=== PATIENT | male | born 1945 | race Caucasian/White ===

== ENCOUNTER → 2016-12-13 | Outpatient (CLI) | payer BC ==
[~2016-12-13] MED LIST: ASCA500 PO; ASPEC81 PO; ASPI81TA28 PO; ATEN-173 PO; ATOR-24 PO; CINN500T PO; CLOP1TAB15 PO; CLR10 PO; DOCU100C31 PO; ESCI10TA17 PO; GARL1CAP6 PO; GLUC1TAB94 PO; IMDSR30 PO; MULT-506 PO; NITR0.4S UT; NXM/40 PO; OMEG10007 PO; SUCR1TAB29 PO; TPRSR25 PO
[2016-12-13 09:35] LABS: BASO % 0.7 %; BASO ABS # 0.04 K/uL (0-0.2); COMPLETE YES; EOS % 8.4 %; HEMATOCRIT 48.4 % (42-52); LYMPH % 26.2 %; MEAN CELL VOLUME 88.3 fL (80-100); MEAN CORPUSCULAR HEMOGLOBIN 28.5 pg (25-34); MEAN CORPUSCULAR HGB CONC 32.2 g/dl (32-36); MEAN PLATELET VOLUME 8.8 fL (7.4-10.4); MONO % 7.5 %; NEUT % 57.2 %; PLATELET COUNT 205 K/uL (130-400); RED BLOOD COUNT 5.48 M/uL (4.7-6.1)
[2016-12-13 09:50] LABS: ESTIMATED AVERAGE GLUCOSE 131 mg/dl; HA1C FLAG Normal (Normal)
[2016-12-13 09:55] LABS: ALT/SGPT 28 U/L (12-78); AST/SGOT 19 U/L (15-37); BLOOD UREA NITROGEN 16 mg/dl (7-18); BUN/CREATININE RATIO 14.8 (10-20); CARBON DIOXIDE 28 mmol/L (21-32); CHLORIDE 107 mmol/L (98-107); CHOLESTEROL 128 mg/dl (0-200); GLUCOSE 114 mg/dl (70-99); POTASSIUM 4.3 mmol/L (3.5-5.1); SODIUM 143 mmol/L (136-145); TRIGLYCERIDES 71 mg/dl (0-150); VERY LOW DENSITY LIPOPROT CALC 14 mg/dl
[2016-12-13 09:57] LABS: CALCIUM 9.1 mg/dl (8.5-10.1)
[2016-12-13 09:59] LABS: HDL CHOLESTEROL 43 mg/dl; LDL CHOLESTEROL CALCULATED 71 mg/dl
== END | disposition home or self-care (01) ==
LOC: C.LAB1850 08:11
PROVIDERS: ATTEND Internal Medicine
DX: Z11.59 Encounter for screening for other viral diseases (principal); K22.4 Dyskinesia of esophagus; E11.9 Type 2 diabetes mellitus without complications; E78.5 Hyperlipidemia, unspecified; N40.0 Benign prostatic hyperplasia without lower urinary tract symptoms; I10 Essential (primary) hypertension

== ENCOUNTER → 2016-12-19 | Day surgery (SDC) | payer BC ==
[2016-12-17 15:08] VITALS: BMI 29.0
[~2016-12-19] VITALS: Ht 175.3 cm; Wt 90.9 kg
[~2016-12-19] MED LIST changes: -ATEN-173 PO; +SODIUM CHLORIDE 0.9% 500ML 500 ML IV ONE
[2016-12-19 11:29] VITALS: Ht 175.3 cm; Wt 90.9 kg
[2016-12-19 11:49] VITALS: TEMP 36.4
--- NOTE | 2016-12-19 11:50 | Endo History and Physical ---
History & Physical Date of Service: Dec 19, 2016. Chief Complaint: Dysphagia Referring Physician: Dr. Maguire History of Present Illness 71 yo CM who presents for EGD secondary to dysphagia. Past Medical History Arthritis, Reflux, High Cholesterol, Sleep Apnea, CABG, Heart Disease, Hypertension, CVA/TIA Past Surgical History Hx Cardiac Surgery: Yes (CABG X3 2011) Hx Internal Defibrillator: No Hx Pacemaker: No Hx Abdominal Surgery: No Hx of Implantable Prosthesis: No Hx Post-Op Nausea and Vomiting: No Hx Cancer Surgery: No Hx Thoracic Surgery: No Hx Orthopedic: No Hx Urinary Tract Surgery: No Family History None Social History Smoking Status: Never Smoker Hx Substance Use: No Hx Alcohol Use: Yes (OCCASIONAL) Allergies Coded Allergies: Iodinated Contrast Media (Verified Allergy, Unknown, "FEELING FUNNY", 12/19) Current Medications Reported Home Medications Medications Dose Route/Sig Max Daily Dose Days Date Category Docusate Sodium 100 Mg Cap 1 Cap PO DAILY PRN 30 12/19/16 Reported Vitamin C (Ascorbic Acid) 500 Mg Tab 1 Tab PO QAM 01/26/16 Reported Garlic 10 Mg Cap 1 Tab PO QAM 01/26/16 Reported Move Free Joint Health Ad (Vlzpilnylzh-Muaqrvojvie-Yfukwy) 1 Tab Tab 1 Tab PO QAM 01/26/16 Reported Nitrostat (Nitroglycerin) 0.4 Mg Sub 0.4 Mg UT PRN 12/22/14 Reported Cinnamon 500 Mg Tab 1 Cap PO QAM 12/22/14 Reported Lipitor (Atorvastatin Calcium) 40 Mg Tab 40 Mg PO QPM 12/22/14 Reported Plavix (Clopidogrel Bisulfate) 75 Mg Tab 75 Mg PO Q2D 07/27/09 Reported Ecotrin Or Generic * (Aspirin) 81 Mg Ectab 81 Mg PO QPM 08/12/08 Reported Lexapro (Escitalopram Oxalate) 10 Mg Tab 10 Mg PO QAM 08/12/08 Reported Nexium (Esomeprazole Magnesium) 40 Mg Capcr 40 Mg PO QAM 08/12/08 Reported Claritin (Loratadine) 10 Mg Tab 10 Mg PO QAM 08/12/08 Reported [place]-3 (Fish Oil) 1 Ea Cap 1 Cap PO QAM 08/12/08 Reported Multivitamin (Multivitamins) Tab 1 Tab PO QAM 08/12/08 Reported Vital Signs Weight (Kilograms): 90.91 Height (Feet): 5 Height (Inches): 9 Physical Exam General Appearance: WD/WN, no apparent distress Respiratory/Chest: Auscultation: breath sounds normal Cardiovascular: Heart Auscultation: RRR Abdomen: Bowel Sounds: normal Inspection & Palpation: soft, non-distended, no tenderness, guarding & rebound Assessment and Plan Assessment: 71 yo CM who presents for EGD secondary to dysphagia. Plan: Proceed with EGD
--- NOTE | 2016-12-19 12:30 | GI REPORT ---
Procedure Date: 12/19/2016 12:11 PM Procedure: Upper GI endoscopy Indications: Dysphagia Medicines: Monitored Anesthesia Care Complications: No immediate complications. Estimated Blood Loss: Estimated blood loss: none. Procedure: Pre-Anesthesia Assessment: - Prior to the procedure, a History and Physical was performed, and patient medications and allergies were reviewed. The patient's tolerance of previous anesthesia was also reviewed. The risks and benefits of the procedure and the sedation options and risks were discussed with the patient. All questions were answered, and informed consent was obtained. Prior Anticoagulants: The patient last took aspirin 2 days and Plavix (clopidogrel) 3 days prior to the procedure. ASA Grade Assessment: III - A patient with severe systemic disease. After reviewing the risks and benefits, the patient was deemed in satisfactory condition to undergo the procedure. After obtaining informed consent, the endoscope was passed under direct vision. Throughout the procedure, the patient's blood pressure, pulse, and oxygen saturations were monitored continuously. The scope was introduced through the mouth, and advanced to the second part of duodenum. The upper GI endoscopy was accomplished without difficulty. The patient tolerated the procedure well. Findings: One cratered esophageal ulcer with no bleeding and no stigmata of recent bleeding was found. The lesion was 5 mm in largest dimension. Localized mild inflammation characterized by erythema was found in the gastric antrum. Biopsies were taken with a cold forceps for histology. The examined duodenum was normal. Impression: - Non-bleeding esophageal ulcer. - Gastritis. Biopsied. - Normal examined duodenum. Recommendation: - Resume previous diet. - Continue present medications. - Await pathology results. - Use sucralfate tablets 1 gram PO QID for 10 days. - Return to primary care physician as previously scheduled. Carlitos Huber DO 12/19/2016 12:29:48 PM This report has been signed electronically. Note Initiated On: 12/19/2016 12:11 PM I attest to the content of the Intraoperative Record and orders documented therein, exceptions below
[2016-12-19 13:02] VITALS: BP 132/82; PULSE 61; O2SAT 97
--- NOTE | 2016-12-19 13:10 | Discharge Instructions ---
Endoscopy Patient Instructions Date / Procedure(s) Performed Dec 19, 2016. EGD Allergy Information Coded Allergies: Iodinated Contrast Media (Verified Allergy, Unknown, "FEELING FUNNY", 12/19) Discharge Date / Findings Dec 19, 2016. Esophageal ulcer Gastritis s/p biopsies Medication Instructions Stopped Medication(s): STOP PLAVIX 1) Start Carafate 1g by mouth four times daily for 10 days 2) OK to restart all medications today as prescribed Reported Home Medications Medications Dose Route/Sig Max Daily Dose Days Date Category Docusate Sodium 100 Mg Cap 1 Cap PO DAILY PRN 30 12/19/16 Reported Vitamin C (Ascorbic Acid) 500 Mg Tab 1 Tab PO QAM 01/26/16 Reported Garlic 10 Mg Cap 1 Tab PO QAM 01/26/16 Reported Move Free Joint Health Ad (Ramqqskgsuc-Eyulurqofyl-Mrfrdm) 1 Tab Tab 1 Tab PO QAM 01/26/16 Reported Nitrostat (Nitroglycerin) 0.4 Mg Sub 0.4 Mg UT PRN 12/22/14 Reported Cinnamon 500 Mg Tab 1 Cap PO QAM 12/22/14 Reported Lipitor (Atorvastatin Calcium) 40 Mg Tab 40 Mg PO QPM 12/22/14 Reported Plavix (Clopidogrel Bisulfate) 75 Mg Tab 75 Mg PO Q2D 07/27/09 Reported Ecotrin Or Generic * (Aspirin) 81 Mg Ectab 81 Mg PO QPM 08/12/08 Reported Lexapro (Escitalopram Oxalate) 10 Mg Tab 10 Mg PO QAM 08/12/08 Reported Nexium (Esomeprazole Magnesium) 40 Mg Capcr 40 Mg PO QAM 08/12/08 Reported Claritin (Loratadine) 10 Mg Tab 10 Mg PO QAM 08/12/08 Reported [place]-3 (Fish Oil) 1 Ea Cap 1 Cap PO QAM 08/12/08 Reported Multivitamin (Multivitamins) Tab 1 Tab PO QAM 08/12/08 Reported Provider Instructions Activity Restrictions - No exercising or heavy lifting for 24 hours. - Do not drink alcohol the day of the procedure. - Do not drive a car or operate machinery until the day after the procedure. - Do not make any important decisions or sign important papers in 24 hours after the procedure. Following Day: - Return to full activity which may include returning to work/school. Diet Start your diet with liquids and light foods (jello, soup, juice, toast). Then eat your usual diet if not nauseated. Treatment For Common After Affects For mild abdominal pain, bloating, or excessive gas: - Rest - Eat lightly - Lie on right side Follow-Up Information Follow-up with DR. STEPHEN as scheduled Anesthesia Information What You Should Know You have had a procedure that required some medicine to reduce anxiety and discomfort. This treatment is called moderate sedation. After receiving the treatment, you may be sleepy, but you will be able to breathe on your own. The effects of the treatment may last for several hours. Follow these instructions along with Activity/Diet recommendations noted above: * Do NOT do anything where dizziness or clumsiness would be dangerous. * Rest quietly at home today, then you can be up and about tomorrow. * Have a responsible person stay with you the rest of today. * You may have had an I.V. today. If so, you may take the dressing off later today. Recommendations Call your doctor if: * Trouble breathing * Continuous vomiting for more than 24 hours * Temperature above 101 degrees * Severe abdominal pain or bloating * Pain not relieved by pain medicine ordered * There is increased drainage or redness from any incision * A large amount of rectal bleeding greater than 2-3 tablespoons. (If you had a polyp/s removed or have hemorrhoids, a small amount of blood - from the rectum is to be expected.) * You have any unanswered questions or concerns. IN THE EVENT OF A SERIOUS EMERGENCY, GO TO THE NEAREST EMERGENCY ROOM Your discharge instructions were prepared by provider Carlitos Huber. Patient Instructions Signature Page Jaya Morfin Patient (or Guardian) Signature/Date: I have read and understand the instructions given to me by my caregivers. Caregiver/RN/Doctor Signature/Date: The above-named patient and/or guardian has received patient instructions on this date. + Original Patient Signature Page (only) stays with chart. Please make copy for patient.
--- NOTE | 2016-12-19 13:18 | Anesthesiology Progress Note ---
Anesthesia Post Op Note Date & Time Dec 19, 2016 at 13:18 Vital Signs Pain Intensity: 0 Vital Signs Past 12 Hours Date Time Temp Pulse Resp B/P (MAP) Pulse Ox O2 Delivery O2 Flow Rate FiO2 12/19/16 13:02 61 16 132/82 (99) 97 Room Air 12/19/16 12:48 65 16 134/84 (101) 96 Room Air 12/19/16 12:33 67 14 108/67 (81) 95 Room Air 12/19/16 11:49 36.4 65 20 147/77 (100) 97 Room Air Notes Mental Status: alert / awake / arousable, participated in evaluation Pt Amnestic to Procedure: Yes Nausea / Vomiting: adequately controlled Pain: adequately controlled Airway Patency, RR, SpO2: stable & adequate BP & HR: stable & adequate Hydration State: stable & adequate Anesthetic Complications: no major complications apparent
--- NOTE | 2016-12-24 21:00 | PROGRESS NOTE ---
DATE: 12/24/2016 HISTORY OF PRESENT ILLNESS: The patient was seen by me this morning prior to his cardiac catheterization. He was also seen by me in his telemetry room following the cardiac catheterization. He states that since admission on 12/21/2016, he has had no further complaints of chest pain. He has had a persistent, mild jaw discomfort. No orthopnea or PND. No palpitations, lightheadedness or syncope. No abdominal pain or nausea. No bleeding complaints. No cerebrovascular complaints. We obtained the patient's CABG surgical report from [facility] this morning prior to performing the cardiac catheterization. His grafts performed in October 2010 consisted of the left internal mammary artery graft to the LAD, saphenous vein graft from the aorta to the right PDA and saphenous vein graft from the aorta to a left circumflex marginal. The patient recently underwent an EGD on 12/19/2016 that revealed a cratered esophageal ulcer with no bleeding. No stigmata of recent bleeding, 5 mm diameter, localized mild inflammation in the gastric antrum. Normal examined duodenum. It was recommended that he start sucralfate tablets 1 gram p.o. q.i.d. for ten days. PHYSICAL EXAMINATION: This morning, prior to the catheterization revealed: VITAL SIGNS: Oral temperature of 36.5, pulse 70, blood pressure 163/90 and pulse oximetry of room air 92%. NECK: No jugular venous distention. LUNGS: Normal respiratory effort. Clear. No rales or wheezes. HEART: Regular rate and rhythm. S1, S2 normal. No S3 or S4. No murmur or rub. ABDOMEN: Soft. Nontender. No palpable masses or organomegaly. Normal bowel sounds. No bruits. EXTREMITIES: No pretibial edema. No cyanosis or clubbing. Pulses: Radial, femoral, dorsalis pedis and posterior tibial pulses palpable bilaterally. No bruits over the femoral arteries. NEUROLOGIC: Alert and oriented x3. Motor grossly intact. PSYCHIATRIC: Affect normal. DATA: Electrocardiogram performed on 12/21/2016 and reviewed by me showed normal sinus rhythm, left atrial enlargement, nonspecific ST and T wave abnormalities. LABORATORIES: This morning with WBC of 5.78, hemoglobin 16.8, hematocrit 48.4 and platelet count 189. Metabolic profile with sodium 139, potassium 4.6, chloride 104, carbon dioxide 28, BUN 17, creatinine 1.20 and magnesium 2.2. Troponin I on this admission less than 0.015 on three determinations. CK total on 12/21/2016 was 83 with an MB of 1.1. MEDICATIONS: This morning included; prednisone 50 mg p.o. three doses prior to cardiac catheterization, clopidogrel 75 mg daily, diphenhydramine 50 mg p.o. this morning prior to cardiac catheterization, Lexapro 10 mg q.a.m., fish oil 1 gram daily a.m., loratadine 10 mg q.a.m., pantoprazole 40 mg q.a.m., subQ heparin 5000 units q. 8 hours, aspirin 81 mg daily, atorvastatin 40 mg daily and several p.r.n. medications. Cardiac catheterization was performed via a 6-Hebrew sheath in the right femoral artery. This revealed coronary calcifications, sternal wire sutures, saphenous vein graft markers and a sternal suture band. The coronary circulation was right dominant. Mild atherosclerotic disease in the proximal, mid and distal RCA. Diffusely diseased, very small caliber right PDA, 50-70% luminal diameter narrowing in the proximal mid segment stent followed by discrete 95% stenosis. The distal anastomosis of the vein graft was visualized. The mid and distal segment of the vein graft fills via retrograde flow. The mid and distal PDA distal to the graft insertion were visualized as a small caliber vessel of minor luminal irregularities. The vein graft to the PDA was widely patent. The left main coronary had no obstructive disease, ostial 30% LAD stenosis. The LAD then gave rise to a very small caliber first diagonal artery which had an ostial 70% stenosis. It gave rise to a prominent first septal perforating artery which had an ostial 90% stenosis. This was then followed by an 80% proximal LAD stenosis. The LAD then gave rise to a bifurcating small caliber second diagonal artery which had a proximal 30% stenosis and 30% mid segment stenosis. After the second diagonal and mid LAD was visualized as a diffusely diseased vessel with approximately 70% stenosis. The left internal mammary artery graft distal anastomosis was then visualized. Competitive flow was present in the remainder of the mid and distal LAD. The distal anastomosis was patent. It was an end-to-side anastomosis. The left internal mammary artery graft to the LAD was widely patent. No obstructive disease. Patent end-to-side anastomosis to the mid LAD. The mid and distal LAD were visualized as a medium caliber vessel with minor luminal irregularities. The distal LAD terminated at the apex of the heart as a small caliber vessel. The very proximal left circumflex gave rise to a very small caliber diagonal type branch. The circumflex itself was a small caliber vessel. Following the origin of a prominent left atrial branch, the mid left circumflex was totally occluded. The saphenous vein graft to the left circumflex marginal was widely patent. Patent aortic anastomosis. No obstructive disease in body of the graft. Patent end-to-side anastomosis to the mid segment of the marginal. The marginal was a bifurcating vessel. The mid and distal segment of the marginal distal to the graft insertion had minor luminal irregularities. Left ventricular angiography performed from a 30-degree right anterior oblique projection using a hand injection of contrast dye revealed all segments to contract normally. No mitral regurgitation. The calculated left ventricular ejection fraction was 67%. The patient was seen and examined by me following the catheterization. He had no complaints. The right femoral catheterization site had no active bleeding. No hematoma. No tenderness. No bruit over the femoral artery. Distal pulses strongly palpable. ASSESSMENT: 1. Status post 3-vessel coronary artery bypass graft surgery in 2010. Left internal mammary artery graft to left anterior descending, vein graft from aorta to left circumflex marginal, vein graft from aorta to right posterior descending artery. All grafts patent on cardiac catheterization today. 2. Three vessel coronary artery disease. There is significant stenoses at the ostium of the septal system operation superintendent in the very small caliber first diagonal artery. This was then followed by an 80% stenosis. 3. No anginal type chest discomfort following admission. Persistent mild jaw discomfort. Cardiac enzymes negative for myocardial injury. 4. Stress echocardiogram performed in May 2016 was negative for evidence of myocardial ischemia. 5. Recent EGD with esophageal ulcer and evidence of gastritis. 6. History of adverse reaction to contrast dye. No adverse reaction to contrast dye administered today during cardiac catheterization procedure. The patient was pretreated with steroids and diphenhydramine. 7. No vascular complications post-cardiac catheterization. Hemostasis was obtained at the right femoral artery catheterization site with deployment of a Terumo TR band. 8. Hypertension. Currently not on any hypertensive medications. This was prior to the catheterization. 9. Dual antiplatelet therapy. No gastrointestinal bleeding complaints at this time. EGD results as above. 10. The patient has significant stenoses in the first diagonal, proximal left anterior descending and first septal perforating artery. These vessels are not supplied by any bypass grafts. Theoretically, he could have ischemia in the distribution of any of these vessels. He is currently not on any antianginal medications. Although his symptoms prior to admission may have represented unstable angina, that may have also been secondary to a gastrointestinal etiology. He has had no anginal type chest discomfort since admission. Cardiac enzymes were negative for myocardial infarction. Normal left ventricular wall motion on left ventricular angiography today. The patient does admit to decreased exercise tolerance over the past several months. This could be an anginal equivalent symptom. As stated above, he had a negative stress echocardiogram in May 2016. 11. The appropriate use score to perform intervention to the left anterior descending today was calculated to be 4; this would place it in a low uncertain category. Clearly it is not an appropriate use category. As stated above, the patient is currently on no antianginal medications. RECOMMENDATIONS: 1. Medical management of his coronary artery disease at this time. Start metoprolol succinate ER 25 mg daily and isosorbide mononitrate 30 mg daily. Titrate as tolerated by heart rate and blood pressure. 2. Continue dual antiplatelet therapy at this time. Clearly, if he developed GI bleeding, this would need to be reconsidered. 3. Continue statin for his dyslipidemia. 4. Medical management of his coronary arteries at this time. If he had anginal symptoms refractory to maximal medical therapy that were significantly limiting his activities, could consider performing intervention to the proximal LAD stenosis. However, this would not address the stenoses in the small caliber first diagonal and the septal system operation superintendent. Placement of an intracoronary stent would then necessitate prolonged dual antiplatelet therapy. If he were to develop GI bleeding thereafter, this would clearly complicate the continuation of dual antiplatelet therapy. Discontinuation of dual antiplatelet therapy could then increase risk of stent thrombosis. 5. Outpatient cardiology followup with the patient's primary studio set up worker, Dr. Jorge Painter. 6. Discharge the patient home today. 7. The patient was given instructions regarding post-cardiac catheterization care. These were reviewed with him by me. 8. The patient was instructed to seek medical attention immediately for any prolonged episodes of chest discomfort or severe jaw discomfort. 9. He was asked to call the [facility]iology office for any questions or problems. 10. The prescriptions for metoprolol and isosorbide were sent electronically by me to [facility]. [facility]
== END | disposition home or self-care (01) ==
LOC: C.GI 11:20
PROVIDERS: ATTEND Internal Medicine
DX: K22.10 Ulcer of esophagus without bleeding (principal); K29.70 Gastritis, unspecified, without bleeding; R13.10 Dysphagia, unspecified; I25.10 Atherosclerotic heart disease of native coronary artery without angina pectoris; I10 Essential (primary) hypertension; E78.00 Pure hypercholesterolemia, unspecified; Z95.1 Presence of aortocoronary bypass graft; K21.9 Gastro-esophageal reflux disease without esophagitis; G47.30 Sleep apnea, unspecified; Z86.73 Personal history of transient ischemic attack (TIA), and cerebral infarction without residual deficits; Z79.02 Long term (current) use of antithrombotics/antiplatelets; Z79.899 Other long term (current) drug therapy

== ENCOUNTER 2016-12-21 16:01 | Observation (INO) | payer BC, OTHER ==
[~2016-12-21] VITALS: Ht 175.3 cm; Wt 88.9 kg
[~2016-12-21 16:01] MED LIST changes: -ASPI81TA28 PO; -IMDSR30 PO; -SODIUM CHLORIDE 0.9% 500ML 500 ML IV ONE; -SUCR1TAB29 PO; -TPRSR25 PO
--- NOTE | 2016-12-21 18:06 | EMERGENCY ROOM VISIT NOTE ---
History Report prepared by Golden: Clementina Cortez Under the Supervision of: Dr. Kirill Traore M.D. First contact with patient: 17:57 Chief Complaint: CHEST PAIN Stated Complaint: CHEST PAIN, JAW PAIN- HX TRIPLE BYPASS SURGERY History of Present Illness The patient is a 71 year old male who presents to the Emergency Room with complaints of resolving upper chest pain beginning just prior to arrival. The patient states that he was sitting watching TV when the pain began. He notes the pain radiated up into his jaw. The patient took a Nitrostat and the pain did not resolve. About 5 minutes later he took another Nitrostat and the pain began to alleviate. He did take Carafate around 11:30 am due to a small ulcer found during an EGD on Saturday. He ate shortly after. The patient has a history of a triple bypass surgery done 6 years ago at [facility]. He denies any other symptoms at this time. Source of History: patient Onset: just [employer] Position: chest (upper) Timing: resolved Note: The patient notes jaw pain. The patient denies any other symptoms at this time. Review of Systems See HPI for pertinent positives & negatives. A total of 10 systems reviewed and were otherwise negative. Past Medical & Surgical Surgical Problems: (1) S/P triple vessel bypass Family History Patient reports no known family medical history. Social History Smoking Status: Never Smoker Marital Status: Housing Status: lives with family Occupation Status: retired Current/Historical Medications Scheduled Ascorbic Acid (Vitamin C), 1 TAB PO QAM Aspirin (Aspirin Ec), 81 MG PO QPM Atorvastatin (Lipitor), 40 MG PO QPM Cinnamon (Cinnamon), 1 CAP PO QAM Clopidogrel (Plavix), 75 MG PO Q2D Escitalopram (Lexapro), 10 MG PO QAM Esomeprazole Magnesium (Nexium), 40 MG PO QAM Fish Oil ([place]-3), 1 CAP PO QAM Garlic (Garlic), 1 TAB PO QAM Menwblxkhul-Srtttvzgrge-Avmcgq (Move Free Joint Health Ad), 1 TAB PO QAM Loratadine (Claritin), 10 MG PO QAM Multivitamin (Multivitamin), 1 TAB PO QAM Nitroglycerin (Nitrostat), 0.4 MG UT PRN Sucralfate (Carafate), 1 TAB PO QID Scheduled PRN Docusate Sodium (Docusate Sodium), 1 CAP PO DAILY PRN for PRN CONSTIPATION Allergies Coded Allergies: Iodinated Diagnostic Agents (Verified Adverse Reaction, Intermediate, "FEELING FUNNY", 12/21/16) Physical Exam Vital Signs Date Time Temp Pulse Resp B/P (MAP) Pulse Ox O2 Delivery O2 Flow Rate FiO2 12/21/16 20:05 95 Room Air 12/21/16 20:05 70 18 174/94 95 Room Air 12/21/16 18:05 66 20 169/92 96 Room Air 12/21/16 18:05 98 Room Air 12/21/16 18:02 64 12/21/16 16:14 94 Room Air 12/21/16 16:08 36.8 76 20 127/81 93 Room Air Physical Exam GENERAL: Patient is a healthy-appearing well-nourished male HEAD: Normocephalic atraumatic EYES: Ocular movements intact pupils equal and react to light OROPHARYNX mucous membranes are moist no exudates present no erythema or edema present NECK: Supple no nuchal rigidity CHEST: Good equal expansion LUNGS: Clear and equal to auscultation CARDIAC: Normal S1 and S2 ABDOMEN: Soft nontender no guarding BACK: No CVA tenderness EXTREMITIES: No pain upon palpation normal muscle strength in all groups no clubbing cyanosis or edema NEURO: Patient is following commands and answering questions appropriately. Alert and oriented x3 Cranial Nerves 2-12 grossly intact Medical Decision & Procedures ER Provider Diagnostic Interpretation: X-ray results as stated below per interpretation by me and the radiologist: CHEST ONE VIEW PORTABLE CLINICAL HISTORY: CHEST PAIN dyspnea COMPARISON STUDY: 08/12/2008 FINDINGS: Mild stable cardiomegaly. Diaphragms are smooth. Chronic atelectasis left base. Lungs otherwise appear clear. Prior median sternotomy. IMPRESSION: Platelike atelectasis left base. Otherwise negative study. Electronically signed by: Chin Amezcua M.D. 12/21/2016 6:26 PM Dictated Date/Time: 12/21/2016 6:25 PM Laboratory Results 12/21/16 18:00 Red Blood Count 5.17, Mean Corpuscular Volume 87.0, Mean Corpuscular Hemoglobin 29.8, Mean Corpuscular Hemoglobin Concent 34.2, Mean Platelet Volume 8.9, Neutrophils (%) (Auto) 55.5, Lymphocytes (%) (Auto) 27.4, Monocytes (%) (Auto) 9.4, Eosinophils (%) (Auto) 7.0, Basophils (%) (Auto) 0.5, Neutrophils # (Auto) 3.66, Lymphocytes # (Auto) 1.80, Monocytes # (Auto) 0.62, Eosinophils # (Auto) 0.46, Basophils # (Auto) 0.03 12/21/16 18:00 Test 12/21/16 18:00 White Blood Count 6.58 K/uL (4.8-10.8) Red Blood Count 5.17 M/uL (4.7-6.1) Hemoglobin 15.4 g/dL (14.0-18.0) Hematocrit 45.0 % (42-52) Mean Corpuscular Volume 87.0 fL (80-100) Mean Corpuscular Hemoglobin 29.8 pg (25-34) Mean Corpuscular Hemoglobin Concent 34.2 g/dl (32-36) Platelet Count 170 K/uL (130-400) Mean Platelet Volume 8.9 fL (7.4-10.4) Neutrophils (%) (Auto) 55.5 % Lymphocytes (%) (Auto) 27.4 % Monocytes (%) (Auto) 9.4 % Eosinophils (%) (Auto) 7.0 % Basophils (%) (Auto) 0.5 % Neutrophils # (Auto) 3.66 K/uL (1.4-6.5) Lymphocytes # (Auto) 1.80 K/uL (1.2-3.4) Monocytes # (Auto) 0.62 K/uL (0.11-0.59) Eosinophils # (Auto) 0.46 K/uL (0-0.5) Basophils # (Auto) 0.03 K/uL (0-0.2) RDW Standard Deviation 42.0 fL (36.4-46.3) RDW Coefficient of Variation 13.2 % (11.5-14.5) Immature Granulocyte % (Auto) 0.2 % Immature Granulocyte # (Auto) 0.01 K/uL (0.00-0.02) Prothrombin Time 10.7 SECONDS (9.0-12.0) Prothromb Time International Ratio 1.0 (0.9-1.1) Activated Partial Thromboplast Time 26.9 SECONDS (21.0-31.0) Partial Thromboplastin Ratio 1.0 Anion Gap 10.0 mmol/L (3-11) Est Creatinine Clear Calc Drug Dose 74.9 ml/min Estimated GFR () 86.8 Estimated GFR (Non- 74.9 BUN/Creatinine Ratio 19.2 (10-20) Calcium Level 8.6 mg/dl (8.5-10.1) Total Bilirubin 0.3 mg/dl (0.2-1) Direct Bilirubin 0.1 mg/dl (0-0.2) Aspartate Amino Transf (AST/SGOT) 22 U/L (15-37) Alanine Aminotransferase (ALT/SGPT) 32 U/L (12-78) Alkaline Phosphatase 92 U/L (45-117) Total Creatine Kinase 83 U/L (39-308) Creatine Kinase MB 1.1 ng/ml (0.5-3.6) Creatine Kinase MB Ratio 1.3 (0-3.0) Total Protein 6.9 gm/dl (6.4-8.2) Albumin 3.9 gm/dl (3.4-5.0) Lipase 155 U/L (73-393) Labs reviewed by ED physician. Medications Administered Medications (Trade) Dose Ordered Sig/Mandy Route Start Time Stop Time Status Last Admin Dose Admin Miscellaneous Medication (Gi Cocktail) 24 ml NOW STAT PO 12/21/16 18:28 12/21/16 18:29 DC 12/21/16 18:28 24 ML Aspirin (Ecotrin Tab) 81 mg QPM PO 12/21/16 21:00 01/20/17 20:59 12/22/16 20:19 81 MG Atorvastatin Calcium (Lipitor Tab) 40 mg QPM PO 12/21/16 21:00 01/20/17 20:59 12/22/16 20:19 40 MG ECG Indication: chest pain Rate (beats per minute): 68 Rhythm: normal sinus Findings: no acute ischemic change, no ectopy ED Course 1758: Past medical records reviewed. The patient was evaluated in room A11. A complete history and physical examination was performed. 1827: GI Cocktail 24 ml PO. 2005: I discussed the patient's case with Dr. Chloe Crane [facility] [place], he has agreed to evaluate the patient for further management and care. 2040: Upon reexamination the patient is hemodynamically stable. I discussed results and treatment plan with the patient. He verbalizes agreement and understanding. I spoke with Dr. Corona from the [facility] Hospital[place] Service. The patient will be evaluated for further management. Medical Decision Differential diagnosis: Etiologies such as cardiac ischemia, aortic dissection, pulmonary embolism, pneumonia, pneumothorax, musculoskeletal, infections, pericarditis, myocarditis , esophageal rupture, gastrointestinal, as well as others were entertained. Medication Reconciliation: I attest that I have personally reviewed the patient' s current medication list. Blood Pressure Screening: Patient was found to have an elevated blood pressure and was referred to their primary care doctor for recheck and further treatment This is a 71-year-old male who presents emergency department complaining of chest pain. I will note that the patient's pain was relieved by nitroglycerin prior to arrival. He was also given a GI cocktail. Patient does have a history of a triple bypass. He has a normal EKG as well as CK-MB and MB and troponin fractions. I did discuss the case with the hospitalist service who agreed to admit the patient. Patient and family were in agreement with the treatment plan. Consults Time Called: 2002 Consulting Physician: Dr. Chloe Crane [facility] [place] Returned Call: 2005 I discussed the patient's case with Dr. Chloe Crane [facility] [place], he has agreed to evaluate the patient for further management and care. Impression Primary Impression: Precordial chest pain Scribe Attestation The scribe's documentation has been prepared under my direction and personally reviewed by me in its entirety. I confirm that the note above accurately reflects all work, treatment, procedures, and medical decision making performed by me. Departure Information Dispostion Being Evaluated By Hospitalist Referrals No Doctor, Assigned (PCP)
[2016-12-21 18:20] LABS: BASO % 0.5 %; BASO ABS # 0.03 K/uL (0-0.2); COMPLETE YES; IG% 0.2 %; LYMPH % 27.4 %; MEAN CORPUSCULAR HEMOGLOBIN 29.8 pg (25-34); MEAN CORPUSCULAR HGB CONC 34.2 g/dl (32-36); MEAN PLATELET VOLUME 8.9 fL (7.4-10.4); MONO % 9.4 %; NEUT % 55.5 %; PLATELET COUNT 170 K/uL (130-400); RED BLOOD COUNT 5.17 M/uL (4.7-6.1); WHITE BLOOD COUNT 6.58 K/uL (4.8-10.8)
[2016-12-21] MEDS ORDERED: SUCR1TAB29 PO (18:21)
[2016-12-21] MEDS ORDERED: ASPI81TA28 PO (18:21)
--- NOTE | 2016-12-21 18:27 | DIAGNOSTIC IMAGING REPORT ---
CHEST ONE VIEW PORTABLE CLINICAL HISTORY: CHEST PAIN dyspnea COMPARISON STUDY: 08/12/2008 FINDINGS: Mild stable cardiomegaly. Diaphragms are smooth. Chronic atelectasis left base. Lungs otherwise appear clear. Prior median sternotomy. IMPRESSION: Platelike atelectasis left base. Otherwise negative study. Electronically signed by: Chin Amezcua M.D. 12/21/2016 6:26 PM Dictated Date/Time: 12/21/2016 6:25 PM
[2016-12-21] MEDS ORDERED: GI COCKTAIL PO STA (18:28)
[2016-12-21] MEDS ORDERED: LIDOCAINE HCL 2% VISC SOLN 20 ML UDC ONE (18:49)
[2016-12-21] MEDS ORDERED: ALUMINUM/MAGNESIUM SUSP 30 ML UDC ONE (18:49)
[2016-12-21 19:02] LABS: POTASSIUM 4.2 mmol/L (3.5-5.1); SODIUM 144 mmol/L (136-145)
[2016-12-21 19:10] LABS: AST/SGOT 22 U/L (15-37)
[2016-12-21 19:16] LABS: ALKALINE PHOSPHATASE 92 U/L (45-117); ALT/SGPT 32 U/L (12-78); BLOOD UREA NITROGEN 19 mg/dl (7-18); BUN/CREATININE RATIO 19.2 (10-20); CALCIUM 8.6 mg/dl (8.5-10.1); CARBON DIOXIDE 25 mmol/L (21-32); CHLORIDE 109 mmol/L (98-107); CKMB/CK RATIO 1.3 (0-3.0); GLUCOSE 101 mg/dl (70-99)
[2016-12-21] MEDS ORDERED: POLYETHYLENE (MIRALAX) 17 GM PACK PO PRN (21:00)
[2016-12-21] MEDS ORDERED: ALUMINUM/MAGNESIUM/SIMETH (MAALOX MAX) 30 ML UDC PO PRN (21:00)
[2016-12-21] MEDS ORDERED: ONDANSETRON INJ 2 MG/ML 2 ML VIAL IV PRN (21:00)
[2016-12-21] MEDS ORDERED: ACETAMINOPHEN 325 MG TAB PO PRN (21:00)
[2016-12-21] MEDS ORDERED: MoRPHine SULFATE 2 MG/ML CARP IV PRN (21:00)
[2016-12-21] MEDS ORDERED: MAGNESIUM HYDROXIDE SUSP 30 ML UDC PO PRN (21:00)
[2016-12-21] MEDS ORDERED: NITROGLYCERIN 0.4 MG SL PER TAB CHARGE UT SCH (21:00)
--- NOTE | 2016-12-21 21:13 | History and Physical ---
History & Physical Date & Time of Service: Dec 21, 2016 at 21:09 Chief Complaint: Chest Pain, Jaw Pain- Hx Triple Bypass Surgery Primary Care Physician: Inder Maguire M.D. History of Present Illness Source: patient 71 y/o M Hx HPL, esophageal ulcer, CAD - CABG 2010. Pt developed upper CP which radiated to his jaw. He has NTG at home and took two which served to relieve his CP although the effect took approximately 5 min. He denies SOB, N/V , diaphoresis or light-headedness. The pt had an EGD 3 days prior due to dysphagia. This revealed a 5mm esophageal ulcer without evidence of bleeding. He was placed on Carafate which he took preceding the onset of his CP this evening. Past Medical/Surgical History 1) CAD - 3 vessel CABG 2010 2) HPL 3) GERD 4) Esophageal ulcer Family History Patient reports no known family medical history. Social History Smoking Status: Never Smoker Marital Status: Occupational Status: retired Immunizations History of Influenza Vaccine: Yes Influenza Vaccine Date: May 12, 2008 History of Tetanus Vaccine?: Unknown History of Pneumococcal: Unknown History of Hepatitis B Vaccine: Unknown Multi-Drug Resistant Organisms History of MDRO: No Allergies Coded Allergies: Iodinated Contrast Media (Verified Allergy, Unknown, "FEELING FUNNY", 12/21) Home Medications Scheduled Ascorbic Acid (Vitamin C), 1 TAB PO QAM Aspirin (Aspirin Ec), 81 MG PO QPM Atorvastatin (Lipitor), 40 MG PO QPM Cinnamon (Cinnamon), 1 CAP PO QAM Clopidogrel (Plavix), 75 MG PO Q2D Escitalopram (Lexapro), 10 MG PO QAM Esomeprazole Magnesium (Nexium), 40 MG PO QAM Fish Oil ([place]-3), 1 CAP PO QAM Garlic (Garlic), 1 TAB PO QAM Ilrussgyhbc-Dkvjvgbmitv-Bzbzaw (Move Free Joint Health Ad), 1 TAB PO QAM Loratadine (Claritin), 10 MG PO QAM Multivitamin (Multivitamin), 1 TAB PO QAM Nitroglycerin (Nitrostat), 0.4 MG UT PRN Sucralfate (Carafate), 1 TAB PO QID Scheduled PRN Docusate Sodium (Docusate Sodium), 1 CAP PO DAILY PRN for PRN CONSTIPATION Review of Systems Constitutional: No fever, No chills, No sweats Eyes: No worsening of vision, No eye pain ENT: No hearing loss, No nasal symptoms Respiratory: No cough, No sputum, No wheezing Cardiovascular: + chest pain, No orthopnea, No PND Abdomen: No pain, No nausea, No vomiting Musculoskeletal: No joint pain Genitourinary - Male: No hematuria, No dysuria, No urinary frequency Neurologic: No memory loss, No paralysis, No weakness Psychiatric: No depression symptoms Endocrine: No fatigue Hematologic / Lymphatic: No abnormal bleeding/bruising Integumentary: No rash Allergic / Immunologic: No environmental allergies Physical Exam Vital Signs Date Time Temp Pulse Resp B/P (MAP) Pulse Ox O2 Delivery O2 Flow Rate FiO2 12/21/16 20:05 95 Room Air 12/21/16 20:05 70 18 174/94 95 Room Air 12/21/16 18:05 66 20 169/92 96 Room Air 12/21/16 18:05 98 Room Air 12/21/16 18:02 64 12/21/16 16:14 94 Room Air 12/21/16 16:08 36.8 76 20 127/81 93 Room Air General Appearance: WD/WN, no apparent distress Head: normocephalic Eyes: normal inspection ENT: normal ENT inspection, pharynx normal Neck: supple, no JVD Respiratory/Chest: chest non-tender, lungs clear, normal breath sounds, no respiratory distress, no accessory muscle use Cardiovascular: regular rate, rhythm, no edema, no gallop, no JVD, no murmur, normal peripheral pulses Abdomen/GI: normal bowel sounds, non tender, soft Back: normal inspection, normal range of motion Extremities/Musculoskelatal: normal inspection, no calf tenderness, normal capillary refill, no pedal edema, normal range of motion Neurologic/Psych: security lead II-XII nml as tested, no motor/sensory deficits, alert, normal mood/affect, normal reflexes, oriented x 3 Skin: normal color, warm/dry, no rash Diagnostics Laboratory Results Results Past 24 Hours Test 12/21/16 18:00 Range/Units White Blood Count 6.58 4.8-10.8 K/uL Red Blood Count 5.17 4.7-6.1 M/uL Hemoglobin 15.4 14.0-18.0 g/dL Hematocrit 45.0 42-52 % Mean Corpuscular Volume 87.0 80-100 fL Mean Corpuscular Hemoglobin 29.8 25-34 pg Mean Corpuscular Hemoglobin Concent 34.2 32-36 g/dl Platelet Count 170 130-400 K/uL Mean Platelet Volume 8.9 7.4-10.4 fL Neutrophils (%) (Auto) 55.5 % Lymphocytes (%) (Auto) 27.4 % Monocytes (%) (Auto) 9.4 % Eosinophils (%) (Auto) 7.0 % Basophils (%) (Auto) 0.5 % Neutrophils # (Auto) 3.66 1.4-6.5 K/uL Lymphocytes # (Auto) 1.80 1.2-3.4 K/uL Monocytes # (Auto) 0.62 0.11-0.59 K/uL Eosinophils # (Auto) 0.46 0-0.5 K/uL Basophils # (Auto) 0.03 0-0.2 K/uL RDW Standard Deviation 42.0 36.4-46.3 fL RDW Coefficient of Variation 13.2 11.5-14.5 % Immature Granulocyte % (Auto) 0.2 % Immature Granulocyte # (Auto) 0.01 0.00-0.02 K/uL Sodium Level 144 136-145 mmol/L Potassium Level 4.2 3.5-5.1 mmol/L Chloride Level 109 98-107 mmol/L Carbon Dioxide Level 25 21-32 mmol/L Anion Gap 10.0 3-11 mmol/L Blood Urea Nitrogen 19 7-18 mg/dl Creatinine 1.00 0.60-1.40 mg/dl Est Creatinine Clear Calc Drug Dose 74.9 ml/min Estimated GFR () 86.8 Estimated GFR (Non- 74.9 BUN/Creatinine Ratio 19.2 10-20 Random Glucose 101 70-99 mg/dl Calcium Level 8.6 8.5-10.1 mg/dl Total Bilirubin 0.3 0.2-1 mg/dl Direct Bilirubin 0.1 0-0.2 mg/dl Aspartate Amino Transf (AST/SGOT) 22 15-37 U/L Alanine Aminotransferase (ALT/SGPT) 32 12-78 U/L Alkaline Phosphatase 92 45-117 U/L Total Creatine Kinase 83 39-308 U/L Creatine Kinase MB 1.1 0.5-3.6 ng/ml Creatine Kinase MB Ratio 1.3 0-3.0 Troponin I < 0.015 0-0.045 ng/ml Total Protein 6.9 6.4-8.2 gm/dl Albumin 3.9 3.4-5.0 gm/dl Lipase 155 73-393 U/L EKG Sinus - normal axis - subtle T wave inversions ant/lat Impression Assessment and Plan 71 y/o M Hx HTN, HPL, esophageal ulcer, CAD - CABG 2010. Pt developed upper CP which radiated to his jaw. He has NTG at home and took two which served to relieve his CP although the effect took approximately 5 min. He denies SOB, N/V , diaphoresis or light-headedness. The pt had an EGD 3 days prior due to dysphagia. This revealed a 5mm esophageal ulcer without evidence of bleeding. He was placed on Carafate which he took preceding the onset of his CP this evening. 1) CP - monitor on telemetry - NTG/morphine PRN, serial enzymes. We will consult his administrative tech AM as we do not have a clear explanation for his symptoms. They are not consistent with his GERD symptoms and he does have a history of CAD - initial trop is negative - EKG does not provide clear evidence of ischemia. It is unlikely that the symptoms would be related to Carafate ingestion but we will hold Carafate and place the pt on clears overnight to r/o a GI etiology. Cont ASA, Plavix, Statin 2) HPL - Statin Tx 3) GERD - esophageal ulcer - cont Nexium Full code - Heparin prophylaxis Total time for this admit including review of labs, meds, EKG - discussion with pt and ER attending 35 min Level of Care Telemetry Resuscitation Status FULL RESUSCITATION VTE Prophylaxis VTE Risk Assessment Done? Y/N: Yes Risk Level: Moderate Given or contraindicated: Unfractionated heparin SQ
[2016-12-21 22:05] VITALS: BP 159/92; PULSE 71; TEMP 36.6; O2SAT 92; Ht 175.3 cm; Wt 88.9 kg
[2016-12-21 22:05] LABS: PROTHROMBIN TIME (PATIENT) 10.7 SECONDS (9.0-12.0)
[2016-12-21] MEDS: ATORVASTATIN 40 MG TAB PO SCH (22:36)
[2016-12-21] MEDS: ASPIRIN 81 MG ECTAB PO SCH (22:36)
[2016-12-21 23:40] VITALS: BP 129/71; PULSE 60; TEMP 36.9; O2SAT 95
[2016-12-22] VITALS (10 sets, daily range): BP systolic 144–168; BP diastolic 80–90; PULSE 62–68; TEMP 36.5–37; O2SAT 92–96
[2016-12-22] MEDS: HEPARIN SOD 5000 UNIT/0.5 ML CARP SQ SCH ×3 (05:38→20:22)
[2016-12-22] MEDS: LORATADINE 10 MG TAB PO SCH (08:43)
[2016-12-22] MEDS: ESCITALOPRAM OXALATE 10 MG TAB PO SCH (08:44)
[2016-12-22] MEDS: OMEGA-3 (PURIFIED FISH OIL) 1 GM CAP PO SCH (08:44)
[2016-12-22] MEDS: PANTOprazole SOD 40 MG TAB PO SCH (08:44)
--- NOTE | 2016-12-22 09:27 | Cardiology Consultation ---
Cardiology Consultation Date of Consultation: Dec 22, 2016. Requesting Physician: Dr. Corona Reason for Consultation: Chest and jaw discomfort Pt evaluation today including: conversation w/ patient, physical exam, lab review, review of studies, review of inpatient medication list History of Present Illness This is a 71-year-old male with a history of embolic CVA in 2009, diabetes mellitus, hypertension and hypercholesterolemia with a history of triple-vessel coronary artery disease for which he had bypass surgery in 2010. He was recently seen in the office and was doing well from the cardiovascular standpoint. Echocardiography has shown normal left ventricular function with mild to moderate mitral regurgitation. He had a stress test in July 2016 where he had no ischemia. He presents now with chest discomfort radiating to his jaw. This was relieved with 2 sublingual nitroglycerin. It occurred at rest while he is watching TV and it did seem similar to his symptoms prior to his bypass surgery (at that time he had lower sternal and jaw pain relieved following his surgery). He also has been having difficulty related to GERD and esophageal ulcer, however this evidently is not discomfort but rather difficulty swallowing. He was admitted on 12/21/2016, evaluation so far includes cardiac enzymes which have been negative 3 and electrocardiography which shows some minor ST-T abnormalities not present before but no acute changes. He has had no recurrence of his symptoms, is resting in bed and has no complaints. He denies dyspnea on exertion or exertional chest discomfort recently. Past Medical/Surgical History (1) S/P triple vessel bypass Coronary artery disease Hypercholesterolemia Hypertension Family History Patient reports no known family medical history. Social History Smoking Status: Never Smoker History of Alcohol Use: No Review of Systems Constitutional: No fever, No weight loss, No weakness Respiratory: No cough, No wheezing, No shortness of breath, No dyspnea on exertion Cardiac: + see HPI, + chest pain, No orthopnea, No PND, No edema, No palpitations Abdomen: No pain, No nausea, No vomiting, No diarrhea, No GI bleeding Male : No urinary frequency, No nocturia more than once/night, No slowing stream, No sexual dysfunction Neurologic: No paralysis, No weakness, No numbness/tingling, No balance problems Heme: No abnormal bleeding/bruising, No clotting problems Endo: No fatigue Skin: No problem reported All Other Systems: Reviewed and Negative Allergies Coded Allergies: Iodinated Diagnostic Agents (Verified Adverse Reaction, Intermediate, "FEELING FUNNY", 12/21/16) Medications Current Inpatient Medications Medications (Trade) Dose Ordered Sig/Mandy Route Start Time Stop Time Status Last Admin Dose Admin Aspirin (Ecotrin Tab) 81 mg QPM PO 12/21/16 21:00 01/20/17 20:59 12/21/16 22:36 81 MG Atorvastatin Calcium (Lipitor Tab) 40 mg QPM PO 12/21/16 21:00 01/20/17 20:59 12/21/16 22:36 40 MG Clopidogrel Bisulfate (plAVix TAB) 75 mg Q2D@2100 PO 12/22/16 21:00 01/21/17 20:59 Escitalopram Oxalate (Lexapro Tab) 10 mg QAM PO 12/22/16 09:00 01/21/17 08:59 12/22/16 08:44 10 MG Fish Oil ([place]-3 (Purified Fish Oil) Cap) 1 gm QAM PO 12/22/16 09:00 01/21/17 08:59 12/22/16 08:44 1 GM Loratadine (Claritin Tab) 10 mg QAM PO 12/22/16 09:00 01/21/17 08:59 12/22/16 08:43 10 MG Nitroglycerin (Nitrostat Tab) 0.4 mg PRN UT 12/21/16 21:00 01/20/17 20:59 Pantoprazole Sodium (Protonix Tab) 40 mg QAM PO 12/22/16 09:00 01/21/17 08:59 12/22/16 08:44 40 MG Heparin Sodium (Porcine) (Heparin Sq 5000 Unit/0.5ml) 5,000 unit Q8 SQ 12/22/16 06:00 01/21/17 05:59 Acetaminophen (Tylenol Tab) 650 mg Q4H PRN PO 12/21/16 21:00 01/20/17 20:59 Al Hydrox/Mg Hydrox/Simethicone (Maalox Max Susp) 15 ml Q4H PRN PO 12/21/16 21:00 01/20/17 20:59 Magnesium Hydroxide (Milk Of Magnesia Susp) 30 ml Q12H PRN PO 12/21/16 21:00 01/20/17 20:59 Ondansetron HCl (Zofran Inj) 4 mg Q6H PRN IV 12/21/16 21:00 01/20/17 20:59 Morphine Sulfate (MoRPHine SULFATE INJ) 2 mg Q30M PRN IV 12/21/16 21:00 01/04/17 20:59 Polyethylene (Miralax Powder Packet) 17 gm DAILY PRN PO 12/21/16 21:00 01/20/17 20:59 Physical Exam Vital Signs Past 12 Hours Date Time Temp Pulse Resp B/P (MAP) Pulse Ox O2 Delivery O2 Flow Rate FiO2 12/22/16 07:55 36.5 63 20 167/81 (109) 94 Room Air 12/22/16 05:09 36.7 62 20 149/81 (103) 94 Room Air 12/22/16 04:00 Room Air 12/22/16 00:00 Room Air 12/21/16 23:40 36.9 60 20 129/71 (90) 95 Room Air 12/21/16 22:05 36.6 71 18 159/92 92 Room Air 12/21/16 21:26 67 18 133/87 94 Constitutional: General Apperance: heathly-appearing Level of Distress: NAD Psychiatric: Mental Status: active & alert Head: normocephalic Eyes: EOM: EOMI ENMT: normal ENT inspection, hearing grossly normal Neck: supple, no masses Lungs: Respiratory effort: no dyspnea, good air movement Auscultation: breath sounds normal, no wheezing Cardiovascular: Heart Auscultation: RRR, no rubs, no gallops, II/ WSM Peripheral Pulses: Bruits: none appreciated Abdomen: Bowel Sounds: normal Inspection & Palpation: soft, no tenderness, guarding & rebound, no masses Musculoskeletal: normal strength (5/5 throughout) Extremities: no edema Neurologic: Cranial Nerves: grossly intact Sensation: grossly intact Data Laboratory Results: Last 24 Hours Test 12/21/16 18:00 12/21/16 23:02 12/22/16 05:41 White Blood Count 6.58 K/uL Red Blood Count 5.17 M/uL Hemoglobin 15.4 g/dL Hematocrit 45.0 % Mean Corpuscular Volume 87.0 fL Mean Corpuscular Hemoglobin 29.8 pg Mean Corpuscular Hemoglobin Concent 34.2 g/dl Platelet Count 170 K/uL Mean Platelet Volume 8.9 fL Neutrophils (%) (Auto) 55.5 % Lymphocytes (%) (Auto) 27.4 % Monocytes (%) (Auto) 9.4 % Eosinophils (%) (Auto) 7.0 % Basophils (%) (Auto) 0.5 % Neutrophils # (Auto) 3.66 K/uL Lymphocytes # (Auto) 1.80 K/uL Monocytes # (Auto) 0.62 K/uL Eosinophils # (Auto) 0.46 K/uL Basophils # (Auto) 0.03 K/uL RDW Standard Deviation 42.0 fL RDW Coefficient of Variation 13.2 % Immature Granulocyte % (Auto) 0.2 % Immature Granulocyte # (Auto) 0.01 K/uL Prothrombin Time 10.7 SECONDS Prothromb Time International Ratio 1.0 Activated Partial Thromboplast Time 26.9 SECONDS Partial Thromboplastin Ratio 1.0 Sodium Level 144 mmol/L Potassium Level 4.2 mmol/L Chloride Level 109 mmol/L Carbon Dioxide Level 25 mmol/L Anion Gap 10.0 mmol/L Blood Urea Nitrogen 19 mg/dl Creatinine 1.00 mg/dl Est Creatinine Clear Calc Drug Dose 74.9 ml/min Estimated GFR () 86.8 Estimated GFR (Non- 74.9 BUN/Creatinine Ratio 19.2 Random Glucose 101 mg/dl Calcium Level 8.6 mg/dl Total Bilirubin 0.3 mg/dl Direct Bilirubin 0.1 mg/dl Aspartate Amino Transf (AST/SGOT) 22 U/L Alanine Aminotransferase (ALT/SGPT) 32 U/L Alkaline Phosphatase 92 U/L Total Creatine Kinase 83 U/L Creatine Kinase MB 1.1 ng/ml Creatine Kinase MB Ratio 1.3 Troponin I < 0.015 ng/ml < 0.015 ng/ml < 0.015 ng/ml Total Protein 6.9 gm/dl Albumin 3.9 gm/dl Lipase 155 U/L Imaging: Chest x-ray: No acute changes, no congestive heart failure EKG: Sinus rhythm, nonspecific inferolateral ST-T abnormalities Telemetry reviewed: Sinus rhythm and sinus bradycardia and no significant arrhythmia Assessment & Plan #1. Chest and jaw discomfort: This is very worrisome in that he has these symptoms prior to his bypass surgery without classic exertional angina. Catheterization at that time showed triple-vessel coronary artery disease. He had a recent negative stress test in July of this year. I think we need to evaluate his discomfort, that would limit her mean a stress test or catheterization. Stress tests are not necessarily accurate and his symptoms are quite compelling. I would lean toward catheterization, I will discuss that with my interventional partners. That would probably have to wait until Saturday. In the meantime I would keep him in the hospital. #2. Hypercholesterolemia: He is on atorvastatin 40 mg daily and his LDL is reasonable although slightly above 70. If he does have progression of disease I would try to titrate his atorvastatin to 80 mg daily. That will be important over the long run, it is probably not necessary to do now prior to catheterization. Thank you for allowing me to participate in his care.
--- NOTE | 2016-12-22 15:46 | Hospitalist Progress Note ---
Hospitalist Progress Note Date of Service Dec 22, 2016. (Cong Sanabria,P.A.) Subjective Pt evaluation today including: conversation w/ patient Pain: None PO Intake: Good Voiding: no voiding problems Mr. Morfin is a 71 year old white male with a history of CAD s/p CABG x 3 vessels 2010, hypertension, dyslipidemia, and a previous embolic CVA that presented acutely to [facility] ER yesterday after sudden onset central Chest Pain that radiated to his jaw, lasted for 8 to 10 minutes, and seemed to resolve after a second dose of SL NTG. Patient denies any associated symptoms with this -- specifically denying any associated N/V/ Diaphoresis or Dyspnea. This episode of Chest Pain is reminiscent of his prior anginal symptoms. Patient had a negative stress test in May 2017. Patient is currently completely asymptomatic. No recurrent CP and he denies any SOB, BARRAZA, orthopnea, pnd, palpitations, syncope or near syncope. (Cong Sanabria,P.A.) Medications Current Inpatient Medications Medications (Trade) Dose Ordered Sig/Mandy Route Start Time Stop Time Status Last Admin Dose Admin Aspirin (Ecotrin Tab) 81 mg QPM PO 12/21/16 21:00 01/20/17 20:59 12/21/16 22:36 81 MG Atorvastatin Calcium (Lipitor Tab) 40 mg QPM PO 12/21/16 21:00 01/20/17 20:59 12/21/16 22:36 40 MG Clopidogrel Bisulfate (plAVix TAB) 75 mg Q2D@2100 PO 12/22/16 21:00 01/21/17 20:59 Escitalopram Oxalate (Lexapro Tab) 10 mg QAM PO 12/22/16 09:00 01/21/17 08:59 12/22/16 08:44 10 MG Fish Oil ([place]-3 (Purified Fish Oil) Cap) 1 gm QAM PO 12/22/16 09:00 01/21/17 08:59 12/22/16 08:44 1 GM Loratadine (Claritin Tab) 10 mg QAM PO 12/22/16 09:00 01/21/17 08:59 12/22/16 08:43 10 MG Nitroglycerin (Nitrostat Tab) 0.4 mg PRN UT 12/21/16 21:00 01/20/17 20:59 Pantoprazole Sodium (Protonix Tab) 40 mg QAM PO 12/22/16 09:00 01/21/17 08:59 12/22/16 08:44 40 MG Heparin Sodium (Porcine) (Heparin Sq 5000 Unit/0.5ml) 5,000 unit Q8 SQ 12/22/16 06:00 01/21/17 05:59 12/22/16 14:33 5,000 UNIT Acetaminophen (Tylenol Tab) 650 mg Q4H PRN PO 12/21/16 21:00 01/20/17 20:59 Al Hydrox/Mg Hydrox/Simethicone (Maalox Max Susp) 15 ml Q4H PRN PO 12/21/16 21:00 01/20/17 20:59 Magnesium Hydroxide (Milk Of Magnesia Susp) 30 ml Q12H PRN PO 12/21/16 21:00 01/20/17 20:59 Ondansetron HCl (Zofran Inj) 4 mg Q6H PRN IV 12/21/16 21:00 01/20/17 20:59 Morphine Sulfate (MoRPHine SULFATE INJ) 2 mg Q30M PRN IV 12/21/16 21:00 01/04/17 20:59 Polyethylene (Miralax Powder Packet) 17 gm DAILY PRN PO 12/21/16 21:00 01/20/17 20:59 (Cong Sanabria.,P.A.) Objective Vital Signs Date Time Temp Pulse Resp B/P (MAP) Pulse Ox O2 Delivery O2 Flow Rate FiO2 12/22/16 12:00 96 Room Air 12/22/16 11:48 36.6 62 18 168/90 (116) 96 12/22/16 08:00 94 Room Air 12/22/16 07:55 36.5 63 20 167/81 (109) 94 Room Air 12/22/16 05:09 36.7 62 20 149/81 (103) 94 Room Air 12/22/16 04:00 Room Air 12/22/16 00:00 Room Air 12/21/16 23:40 36.9 60 20 129/71 (90) 95 Room Air 12/21/16 22:05 36.6 71 18 159/92 92 Room Air 12/21/16 21:26 67 18 133/87 94 12/21/16 20:05 95 Room Air 12/21/16 20:05 70 18 174/94 95 Room Air 12/21/16 18:05 66 20 169/92 96 Room Air 12/21/16 18:05 98 Room Air 12/21/16 18:02 64 12/21/16 16:14 94 Room Air 12/21/16 16:08 36.8 76 20 127/81 93 Room Air (Cong Sanabria M.,P.A.) Physical Exam General Appearance: no apparent distress Eyes: EOMI, sclerae normal Neck: no adenopathy, no JVD, no carotid bruits Respiratory/Chest: lungs clear Cardiovascular: regular rate, rhythm, no gallop, no murmur Abdomen: normal bowel sounds Extremities: no pedal edema ( No clubbing or cyanosis.) Neurologic/Psychiatric: no motor/sensory deficits, alert, normal mood/affect, oriented x 3 Skin: warm/dry Lymphatic: no adenopathy (Cong Sanabria M.,P.A.) Laboratory Results Last 24 Hours Test 12/21/16 18:00 12/21/16 23:02 12/22/16 05:41 White Blood Count 6.58 K/uL Red Blood Count 5.17 M/uL Hemoglobin 15.4 g/dL Hematocrit 45.0 % Mean Corpuscular Volume 87.0 fL Mean Corpuscular Hemoglobin 29.8 pg Mean Corpuscular Hemoglobin Concent 34.2 g/dl Platelet Count 170 K/uL Mean Platelet Volume 8.9 fL Neutrophils (%) (Auto) 55.5 % Lymphocytes (%) (Auto) 27.4 % Monocytes (%) (Auto) 9.4 % Eosinophils (%) (Auto) 7.0 % Basophils (%) (Auto) 0.5 % Neutrophils # (Auto) 3.66 K/uL Lymphocytes # (Auto) 1.80 K/uL Monocytes # (Auto) 0.62 K/uL Eosinophils # (Auto) 0.46 K/uL Basophils # (Auto) 0.03 K/uL RDW Standard Deviation 42.0 fL RDW Coefficient of Variation 13.2 % Immature Granulocyte % (Auto) 0.2 % Immature Granulocyte # (Auto) 0.01 K/uL Prothrombin Time 10.7 SECONDS Prothromb Time International Ratio 1.0 Activated Partial Thromboplast Time 26.9 SECONDS Partial Thromboplastin Ratio 1.0 Sodium Level 144 mmol/L Potassium Level 4.2 mmol/L Chloride Level 109 mmol/L Carbon Dioxide Level 25 mmol/L Anion Gap 10.0 mmol/L Blood Urea Nitrogen 19 mg/dl Creatinine 1.00 mg/dl Est Creatinine Clear Calc Drug Dose 74.9 ml/min Estimated GFR () 86.8 Estimated GFR (Non- 74.9 BUN/Creatinine Ratio 19.2 Random Glucose 101 mg/dl Calcium Level 8.6 mg/dl Total Bilirubin 0.3 mg/dl Direct Bilirubin 0.1 mg/dl Aspartate Amino Transf (AST/SGOT) 22 U/L Alanine Aminotransferase (ALT/SGPT) 32 U/L Alkaline Phosphatase 92 U/L Total Creatine Kinase 83 U/L Creatine Kinase MB 1.1 ng/ml Creatine Kinase MB Ratio 1.3 Troponin I < 0.015 ng/ml < 0.015 ng/ml < 0.015 ng/ml Total Protein 6.9 gm/dl Albumin 3.9 gm/dl Lipase 155 U/L (Cong Sanabria.,P.A.) Assessment and Plan 1. Chest Pain / Unstable Angina. 2. CAD s/p CABG x 3 vessels. 3. HTN. 4. Dyslipidemia. 5. Currently Asymptomatic. 6. No acute changes on EKG. 7. Cardiac Enzymes negative. PLAN: Continue telemetry monitoring. Cardiology Consultation obtained. Continue current cardiac medical regimen including DAPT, Heparin. Anticipate Left Heart Catheterization on Sunday 12/[address] Rocha. -- will get cath sooner if recurrent symptoms. Continued [facility] stay due to: abnormal vital signs, multiple IV medications needed, other (Cardiac Catheterization on Saturday12/24/[address] Broderick Rocha. ) Discharge planning: home (Cong Sanabria,P.A.) Reviewed: Pt Seen/Exam by Me (Anali Wetzel MD) History Physician Pompom Maker Supervision Note: I interviewed and examined the patient. Discussed with MARCUS Sanabria and agree with findings and plan as documented in the note. Any exceptions or clarifications are listed here: Pt has some mild constant jaw pain since prior to admission. No further chest pain. Otherwise feels well VSS, NAD RRR no mgr CTAB no wcr Abd soft NT ND +BS Ext no edema 71 yo male with CAD, unstable angina, trops neg x 3, awaiting cath onMonday unless has recurrence of symptoms--> then cath urgently Proph-Heparin Documented By: Anali Wetzel (Anali Wetzel MD)
[2016-12-22] MEDS: ASPIRIN 81 MG ECTAB PO SCH (20:19)
[2016-12-22] MEDS: ATORVASTATIN 40 MG TAB PO SCH (20:19)
[2016-12-22] MEDS ORDERED: CLOPIDOGREL BISULFATE 75 MG TAB PO SCH (21:00)
[2016-12-23] VITALS (13 sets, daily range): BP systolic 125–150; BP diastolic 72–83; PULSE 60–72; TEMP 36.5–36.9; O2SAT 91–96
[2016-12-23] MEDS: HEPARIN SOD 5000 UNIT/0.5 ML CARP SQ SCH ×3 (05:45→20:25)
[2016-12-23 08:34] LABS: BASO % 0.6 %; BASO ABS # 0.04 K/uL (0-0.2); COMPLETE YES; EOS % 7.3 %; HEMATOCRIT 47.9 % (42-52); IG% 0.1 %; LYMPH % 25.7 %; LYMPH ABS # 1.76 K/uL (1.2-3.4); MEAN CELL VOLUME 87.7 fL (80-100); MEAN CORPUSCULAR HEMOGLOBIN 30.6 pg (25-34); MEAN CORPUSCULAR HGB CONC 34.9 g/dl (32-36); MEAN PLATELET VOLUME 8.7 fL (7.4-10.4); MONO % 9.9 %; NEUT % 56.4 %; PLATELET COUNT 169 K/uL (130-400); RED BLOOD COUNT 5.46 M/uL (4.7-6.1); WHITE BLOOD COUNT 6.84 K/uL (4.8-10.8)
[2016-12-23] MEDS: ESCITALOPRAM OXALATE 10 MG TAB PO SCH (08:34)
[2016-12-23] MEDS: LORATADINE 10 MG TAB PO SCH (08:34)
[2016-12-23] MEDS: OMEGA-3 (PURIFIED FISH OIL) 1 GM CAP PO SCH (08:34)
[2016-12-23] MEDS: PANTOprazole SOD 40 MG TAB PO SCH (08:34)
[2016-12-23 08:51] LABS: BUN/CREATININE RATIO 14.5 (10-20); CALCIUM 9.4 mg/dl (8.5-10.1); CREATININE 1.1 mg/dl (0.60-1.40); MAGNESIUM 2.4 mg/dl (1.8-2.4); POTASSIUM 4.7 mmol/L (3.5-5.1)
--- NOTE | 2016-12-23 09:54 | Hospitalist Progress Note ---
Hospitalist Progress Note Date of Service Dec 23, 2016. Subjective Pt evaluation today including: conversation w/ patient, conversation w/ family , physical exam Feels well, no CP. Has some chronic BARRAZA that is stable. No abd pain or N/V. He still has the constant 2/10 jaw ache mostly on the left side unchanged since prior to admission. All Other Systems: Reviewed and Negative Objective Vital Signs Date Time Temp Pulse Resp B/P (MAP) Pulse Ox O2 Delivery O2 Flow Rate FiO2 12/23/16 08:00 95 Room Air 12/23/16 07:52 36.9 63 20 150/82 (104) 95 Room Air 12/23/16 05:20 92 Room Air 12/23/16 05:18 36.6 64 16 146/83 (104) 96 Room Air 12/23/16 00:24 92 Room Air 12/23/16 00:10 36.8 60 20 125/74 (91) 95 CPAP 12/22/16 23:35 92 Room Air 12/22/16 20:01 37.0 68 20 144/80 (101) 93 Room Air 12/22/16 20:00 92 Room Air 12/22/16 16:02 92 Room Air 12/22/16 15:16 36.7 63 20 157/87 (110) 92 Room Air 12/22/16 12:00 96 Room Air 12/22/16 11:48 36.6 62 18 168/90 (116) 96 Physical Exam General Appearance: WD/WN, no apparent distress Eyes: normal inspection, sclerae normal ENT: pharynx normal (, no erythema or gum swelling on left side, no cervical or submandibular adenoapthy palpable) Neck: supple, no adenopathy, thyroid normal, no carotid bruits, trachea midline Respiratory/Chest: lungs clear, normal breath sounds, no respiratory distress, no accessory muscle use Cardiovascular: regular rate, rhythm, no edema, no gallop, no murmur Abdomen: normal bowel sounds, non tender, soft, no organomegaly Extremities: non-tender, normal inspection, no pedal edema, no calf tenderness Neurologic/Psychiatric: alert, normal mood/affect, oriented x 3 Skin: normal color, warm/dry, no rash Laboratory Results Last 24 Hours Test 12/23/16 08:20 White Blood Count 6.84 K/uL Red Blood Count 5.46 M/uL Hemoglobin 16.7 g/dL Hematocrit 47.9 % Mean Corpuscular Volume 87.7 fL Mean Corpuscular Hemoglobin 30.6 pg Mean Corpuscular Hemoglobin Concent 34.9 g/dl Platelet Count 169 K/uL Mean Platelet Volume 8.7 fL Neutrophils (%) (Auto) 56.4 % Lymphocytes (%) (Auto) 25.7 % Monocytes (%) (Auto) 9.9 % Eosinophils (%) (Auto) 7.3 % Basophils (%) (Auto) 0.6 % Neutrophils # (Auto) 3.85 K/uL Lymphocytes # (Auto) 1.76 K/uL Monocytes # (Auto) 0.68 K/uL Eosinophils # (Auto) 0.50 K/uL Basophils # (Auto) 0.04 K/uL RDW Standard Deviation 41.5 fL RDW Coefficient of Variation 13.0 % Immature Granulocyte % (Auto) 0.1 % Immature Granulocyte # (Auto) 0.01 K/uL Sodium Level 140 mmol/L Potassium Level 4.7 mmol/L Chloride Level 104 mmol/L Carbon Dioxide Level 30 mmol/L Anion Gap 6.0 mmol/L Blood Urea Nitrogen 16 mg/dl Creatinine 1.10 mg/dl Est Creatinine Clear Calc Drug Dose 67.3 ml/min Estimated GFR () 77.3 Estimated GFR (Non- 66.7 BUN/Creatinine Ratio 14.5 Random Glucose 117 mg/dl Calcium Level 9.4 mg/dl Magnesium Level 2.4 mg/dl Assessment and Plan 71 yo male with CAD s/p 3vCABG, HTN, HL, recent EGD with esophageal ulcer, here with unstable angina. Pt developed upper CP which radiated to his jaw. He has NTG at home and took two which served to relieve his CP although the effect took approximately 5 min. He denies SOB, N/V, diaphoresis or light-headedness. The pt had an EGD 3 days prior due to dysphagia. This revealed a 5mm esophageal ulcer without evidence of bleeding. He was placed on Carafate which he took preceding the onset of his CP prior to admission. CAD s/p 3vCABG,HTN, HL, Unstable angina. No acute changes on ECG, troponin neg x 3 on admission -Continues with dull constant left sided jaw pain which may be related to angina however is constant and not worse with exertion, so unclear. -Renal function normal. -No events on tele -awaiting cath on Saturday or sooner if CP recurs -Appreciate Cardiology consultation -Continue telemetry monitoring. -continue DAPT Esophageal ulcer, GERD-stable, nonbleeding on EGD. Hgb stable here. Pathology shows no H. pylori, no cancer -continue PPI, carafate -f/u with GI Proph-heparin SQ, PPI Dispo-continue tele monitoring
--- NOTE | 2016-12-23 11:49 | Cardiology Follow-Up ---
Subjective Subjective Date of Service: Dec 23, 2016. Pt evaluation today including: conversation w/ patient, conversation w/ family , physical exam, chart review, lab review, review of studies, conversation w/ jewelry consultant, review of inpatient medication list Additional Details: Feeling well. No recurrent chest pain, no shortness of breath. Mild residual jaw/tooth pain, different than presenting symptoms. No events on telemetry. Problem List Medical Problems: (1) Precordial chest pain Status: Acute Review of Systems Constitutional: No fever, No weight loss, No weakness Respiratory: No cough, No wheezing, No shortness of breath, No dyspnea on exertion Cardiac: + see HPI, No chest pain, No orthopnea, No PND, No edema, No palpitations Abdomen: No pain, No nausea, No vomiting, No diarrhea, No GI bleeding Male : No urinary frequency, No nocturia more than once/night, No slowing stream, No sexual dysfunction Neurologic: No paralysis, No weakness, No numbness/tingling, No balance problems Heme: No abnormal bleeding/bruising, No clotting problems Endo: No fatigue Skin: No problem reported Objective Vital Signs Last Vital Signs Documentation Date Time Temp Pulse Resp B/P (MAP) Pulse Ox O2 Delivery O2 Flow Rate FiO2 12/23/16 08:00 95 Room Air 12/23/16 07:52 36.9 63 20 150/82 (104) Physical Exam: General Appearance: no apparent distress ENT: pharynx normal Neck: supple Respiratory/Chest: lungs clear, normal breath sounds, no respiratory distress Cardiovascular: regular rate, rhythm, no edema, no gallop, no murmur Abdomen: normal bowel sounds, non tender, soft Extremities: non-tender, no pedal edema, no calf tenderness, + pertinent finding (2+ radial and femoral pulses bilaterally.) Neurologic/Psychiatric: alert, normal mood/affect, oriented x 3 Skin: normal color, warm/dry, no rash Lymphatic: no adenopathy Assessment and Plan 1. Suspected ACS 2. CAD s/p 3v CABG 2010 3. HTN/HLD 4. GERD/PUD 5. Questionable contrast allergy Patient remains chest pain free ECG, tele, enzymes unremarkable. Plan for cardiac cath in the setting of typical anginal symptoms for months with negative stress and new angina at rest concerning for ACS. Discussed risk, benefits, alternatives of procedure with patient and willing to proceed. Keep NPO overnight. Will pretreat for questionable dye allergy. Continue ASA/Plavix, give in AM. Continued [facility] stay due to: abnormal vital signs, multiple IV medications needed, other Discharge planning: home Medications: Current Inpatient Medications Medications (Trade) Dose Ordered Sig/Mandy Route Start Time Stop Time Status Last Admin Dose Admin Aspirin (Ecotrin Tab) 81 mg QPM PO 12/21/16 21:00 01/20/17 20:59 12/22/16 20:19 81 MG Atorvastatin Calcium (Lipitor Tab) 40 mg QPM PO 12/21/16 21:00 01/20/17 20:59 12/22/16 20:19 40 MG Clopidogrel Bisulfate (plAVix TAB) 75 mg Q2D@2100 PO 12/22/16 21:00 01/21/17 20:59 12/22/16 20:20 75 MG Escitalopram Oxalate (Lexapro Tab) 10 mg QAM PO 12/22/16 09:00 01/21/17 08:59 12/23/16 08:34 10 MG Fish Oil ([place]-3 (Purified Fish Oil) Cap) 1 gm QAM PO 12/22/16 09:00 01/21/17 08:59 12/23/16 08:34 1 GM Loratadine (Claritin Tab) 10 mg QAM PO 12/22/16 09:00 01/21/17 08:59 12/23/16 08:34 10 MG Nitroglycerin (Nitrostat Tab) 0.4 mg PRN UT 12/21/16 21:00 01/20/17 20:59 Pantoprazole Sodium (Protonix Tab) 40 mg QAM PO 12/22/16 09:00 01/21/17 08:59 12/23/16 08:34 40 MG Heparin Sodium (Porcine) (Heparin Sq 5000 Unit/0.5ml) 5,000 unit Q8 SQ 12/22/16 06:00 01/21/17 05:59 12/23/16 05:45 5,000 UNIT Acetaminophen (Tylenol Tab) 650 mg Q4H PRN PO 12/21/16 21:00 01/20/17 20:59 Al Hydrox/Mg Hydrox/Simethicone (Maalox Max Susp) 15 ml Q4H PRN PO 12/21/16 21:00 01/20/17 20:59 Magnesium Hydroxide (Milk Of Magnesia Susp) 30 ml Q12H PRN PO 12/21/16 21:00 01/20/17 20:59 Ondansetron HCl (Zofran Inj) 4 mg Q6H PRN IV 12/21/16 21:00 01/20/17 20:59 Morphine Sulfate (MoRPHine SULFATE INJ) 2 mg Q30M PRN IV 12/21/16 21:00 01/04/17 20:59 Polyethylene (Miralax Powder Packet) 17 gm DAILY PRN PO 12/21/16 21:00 01/20/17 20:59 Lab Results: 12/23/16 08:20 Red Blood Count 5.46, Mean Corpuscular Volume 87.7, Mean Corpuscular Hemoglobin 30.6, Mean Corpuscular Hemoglobin Concent 34.9, Mean Platelet Volume 8.7, Neutrophils (%) (Auto) 56.4, Lymphocytes (%) (Auto) 25.7, Monocytes (%) (Auto) 9.9, Eosinophils (%) (Auto) 7.3, Basophils (%) (Auto) 0.6, Neutrophils # (Auto) 3.85, Lymphocytes # (Auto) 1.76, Monocytes # (Auto) 0.68, Eosinophils # (Auto) 0.50, Basophils # (Auto) 0.04 12/23/16 08:20 Test 12/23/16 08:20 White Blood Count 6.84 K/uL (4.8-10.8) Red Blood Count 5.46 M/uL (4.7-6.1) Hemoglobin 16.7 g/dL (14.0-18.0) Hematocrit 47.9 % (42-52) Mean Corpuscular Volume 87.7 fL (80-100) Mean Corpuscular Hemoglobin 30.6 pg (25-34) Mean Corpuscular Hemoglobin Concent 34.9 g/dl (32-36) Platelet Count 169 K/uL (130-400) Mean Platelet Volume 8.7 fL (7.4-10.4) Neutrophils (%) (Auto) 56.4 % Lymphocytes (%) (Auto) 25.7 % Monocytes (%) (Auto) 9.9 % Eosinophils (%) (Auto) 7.3 % Basophils (%) (Auto) 0.6 % Neutrophils # (Auto) 3.85 K/uL (1.4-6.5) Lymphocytes # (Auto) 1.76 K/uL (1.2-3.4) Monocytes # (Auto) 0.68 K/uL (0.11-0.59) Eosinophils # (Auto) 0.50 K/uL (0-0.5) Basophils # (Auto) 0.04 K/uL (0-0.2) RDW Standard Deviation 41.5 fL (36.4-46.3) RDW Coefficient of Variation 13.0 % (11.5-14.5) Immature Granulocyte % (Auto) 0.1 % Immature Granulocyte # (Auto) 0.01 K/uL (0.00-0.02) Anion Gap 6.0 mmol/L (3-11) Est Creatinine Clear Calc Drug Dose 67.3 ml/min Estimated GFR () 77.3 Estimated GFR (Non- 66.7 BUN/Creatinine Ratio 14.5 (10-20) Calcium Level 9.4 mg/dl (8.5-10.1) Magnesium Level 2.4 mg/dl (1.8-2.4)
[2016-12-23] MEDS: ATORVASTATIN 40 MG TAB PO SCH (20:26)
[2016-12-23] MEDS: ASPIRIN 81 MG ECTAB PO SCH (21:01)
[2016-12-24] VITALS (12 sets, daily range): BP systolic 135–163; BP diastolic 63–90; PULSE 64–74; TEMP 36.4–36.8; O2SAT 91–96
[2016-12-24] MEDS: HEPARIN SOD 5000 UNIT/0.5 ML CARP SQ SCH ×2 (06:00→14:23)
[2016-12-24 06:02] LABS: BASO % 0.2 %; BASO ABS # 0.01 K/uL (0-0.2); COMPLETE YES; EOS % 0.2 %; HEMATOCRIT 48.4 % (42-52); IG% 0.2 %; LYMPH % 17.1 %; LYMPH ABS # 0.99 K/uL (1.2-3.4); MEAN CELL VOLUME 86.4 fL (80-100); MEAN CORPUSCULAR HGB CONC 34.7 g/dl (32-36); MEAN PLATELET VOLUME 8.9 fL (7.4-10.4); MONO % 1.2 %; NEUT % 81.1 %; PLATELET COUNT 189 K/uL (130-400); WHITE BLOOD COUNT 5.78 K/uL (4.8-10.8)
[2016-12-24 06:30] LABS: BUN/CREATININE RATIO 14.3 (10-20); CALCIUM 9.1 mg/dl (8.5-10.1); CREATININE 1.2 mg/dl (0.60-1.40); MAGNESIUM 2.2 mg/dl (1.8-2.4); POTASSIUM 4.6 mmol/L (3.5-5.1)
[2016-12-24] MEDS: PANTOprazole SOD 40 MG TAB PO SCH (07:37)
[2016-12-24] MEDS: LORATADINE 10 MG TAB PO SCH (07:37)
[2016-12-24] MEDS: ESCITALOPRAM OXALATE 10 MG TAB PO SCH (07:37)
[2016-12-24] MEDS: OMEGA-3 (PURIFIED FISH OIL) 1 GM CAP PO SCH (07:37)
[2016-12-24] MEDS ORDERED: NiCARDipine HCL INJ 2.5 MG/ML 10 ML AMP ONE (08:43)
[2016-12-24] MEDS ORDERED: MIDAZOLAM HCL 1 MG/ML 2ML VIAL ONE (08:43)
[2016-12-24] MEDS ORDERED: FENTANYL CITRATE INJ 50 MCG/1 ML 2 ML VIAL ONE (08:43)
[2016-12-24] MEDS ORDERED: HEPARIN SOD (PORCINE) 1000 UNIT/ML 10 ML VIAL ONE (08:43)
[2016-12-24] MEDS ORDERED: NITROGLYCERIN/D5W 100MCG/ML 20ML SYR ONE (08:44)
[2016-12-24] MEDS ORDERED: LIDOCAINE/EPINEPHRINE 1% 20 ML VIAL ONE (09:51)
--- NOTE | 2016-12-24 10:57 | Procedure Note ---
Pre-Mod Sedation Assessment General Date of Moderate Sedation: Dec 24, 2016. Vital Signs: Vital Signs Past 12 Hours Date Time Temp Pulse Resp B/P (MAP) Pulse Ox O2 Delivery O2 Flow Rate FiO2 12/24/16 10:30 66 16 140/78 (98) 95 Room Air 12/24/16 10:25 Room Air 12/24/16 10:20 Room Air 12/24/16 10:15 69 16 142/80 (100) 96 Room Air 12/24/16 08:00 Room Air 12/24/16 07:14 36.5 70 20 163/90 (114) 92 Room Air 12/24/16 05:07 36.5 70 18 156/88 (110) 93 Room Air 12/24/16 04:00 Room Air 12/24/16 00:00 Room Air 12/23/16 23:42 36.9 72 20 136/72 (93) 93 BiPAP Review Cardiovascular: no edema, no gallop, no JVD, no murmur, normal peripheral pulses Abdomen: normal bowel sounds, non tender, soft Lungs: lungs clear Pre-Sedation Airway Assessment Oral Cavity: Dentures Able to Visualize Vocal Cords: No Short Thick Neck: No Hx of Sleep Apnea: Yes Smoking Status: Never Smoker ASA Classification: Class III Procedure Planning Contraindications-for Mod Sed: None Yes Notes The planned sedation has been discussed with the patient and consent obtained. I have identified the patient, determined the appropriateness of sedation and have assessed the patient immediately prior to the procedure. All medicine(s) and interventions are by my order.
[2016-12-24] MEDS ORDERED: SODIUM CHLORIDE 0.9% 1000ML 1,000 ML IV SCH (10:58)
[2016-12-24] MEDS ORDERED: SODIUM CHLORIDE 0.9% 1000ML 250 ML IV PRN (10:58)
--- NOTE | 2016-12-24 10:58 | Procedure Note ---
Post-Mod Sedation Assessment General Date of Moderate Sedation Dec 24, 2016. Vital Signs: Vital Signs Past 12 Hours Date Time Temp Pulse Resp B/P (MAP) Pulse Ox O2 Delivery O2 Flow Rate FiO2 12/24/16 10:30 66 16 140/78 (98) 95 Room Air 12/24/16 10:25 Room Air 12/24/16 10:20 Room Air 12/24/16 10:15 69 16 142/80 (100) 96 Room Air 12/24/16 08:00 Room Air 12/24/16 07:14 36.5 70 20 163/90 (114) 92 Room Air 12/24/16 05:07 36.5 70 18 156/88 (110) 93 Room Air 12/24/16 04:00 Room Air 12/24/16 00:00 Room Air 12/23/16 23:42 36.9 72 20 136/72 (93) 93 BiPAP Review - Discharge Criteria Vital Signs Stable: Yes Alert/Oriented/Conversant: Yes Returned to Baseline Mental St: Yes Nausea Absent/Minimal: Yes Pain/Discomfort/Absent/Minimal: Yes Normal/Baseline Respirations: Yes Active Bleeding?: No Pt Received D/C Instructions: N/A Prescriptions Given: Transmitted Specific Proced. D/C Criteria Distal Pulses Present (Cardiac: Yes Groin site assessed-Card Cath: Yes Voided Prior To Discharge: N/A Discharged Patients Adult Escort/Transportation: N/A
[2016-12-24] MEDS ORDERED: ONDANSETRON INJ 2 MG/ML 2 ML VIAL IV PRN (11:00)
[2016-12-24] MEDS ORDERED: ACETAMINOPHEN 325 MG TAB PO PRN (11:00)
[2016-12-24] MEDS ORDERED: ATROPINE SULFATE 0.1 MG/ML 5ML SYR IV PRN (11:00)
--- NOTE | 2016-12-24 11:22 | [facility] Post Operative Brief Note ---
Preliminary Procedure Note Procedure Date Dec 24, 2016. Pre-Procedure Diagnosis Acute Coronary Syndrome AUC Score 8 Post-Procedure Diagnosis Moderate CAD Procedure(s) Performed Coronary Angiography, Left Heart Cath, LV Angiography, Bypass Graft Angiography , Femoral Artery Angiography Brake Press Operator Dr. Dempsey Calculator Operator(s) Tanya Marin,RTR Estimated Blood Loss 20 Medication(s) Fentanyl, Versed, Lidocaine 1% Preliminary Findings Patent SVG Ao - OM, Ao-Right PDA. Patent CARR - LAD. 80% proximal LAD, 100% LCx OM, 80% mid LAD ( before graft anastomosis ), 80% PDA ( before graft anastomosis ).Normal LV wall motion and EF ( est 65% ). Sheath in right common femoral artery. Cath site: 6 Fr sheath right femoral artery. Hemostasis: 6 FR Starclose vascular closure system. Complications: none. Plan: Patient currently on no anti anginal meds. AUC score for PCI is 4 . ( not in " appropriate category ). Will start antianginal meds with metoprolol and isosorbide mononitrate. If definite anginal symptoms refractory to medical therapy could then consider PCI to proximal LAD stenosis. Recommendations Medical therapy and/or Counseling Specimens None Fluids (cc crystalloids) 130 Drains none Anesthesia Versed,fentanyl,lidocaine 1 % local Procedural Complication(s) None Disposition PCU
[2016-12-24] MEDS ORDERED: METOPROLOL SUCC 25MG EXT REL TAB PO ONE (11:30)
[2016-12-24] MEDS ORDERED: IMDSR30 PO (13:29)
[2016-12-24] MEDS ORDERED: TPRSR25 PO (13:29)
--- NOTE | 2016-12-24 13:38 | Discharge Instructions ---
Discharge Instructions Date of Service Dec 24, 2016. Admission Reason for Admission: Precordial Chest Pain Discharge Discharge Diagnosis / Problem: Coronary artery disease Discharge Goals Goal(s): Decrease discomfort, Learn about illness, Diagnostic testing, Therapeutic intervention, Prevent Disease Progression Activity Recommendations Activity Limitations: per Instructions/Follow-up section . Instructions / Follow-Up Instructions / Follow-Up New medications: 1. Metoprolol 25 mg by mouth once daily 2. Imdur 30 mg by mouth once daily Continue all other regular home medications as prescribed Follow-up: Please follow-up with your PCP within 5-7 days Please follow-up with Cardiology as instructed by Dr. Dempsey Please follow-up/keep all of your subspecialty appointments Home Care: * Take your medications exactly as directed. Don't skip doses. * Remember that recovery after a heart attack takes time. Plan to rest for at lease 4-8 weeks while you recover. Then return to normal activity when your doctor says it's okay. * Ask your doctor about joining a heart rehabilitation program. * Tell your doctor if you are feeling depressed. Feelings of sadness are common after a heart attack, but it is important that you speak to someone if you are feeling overwhelmed by these feelings. * If you are having chest pain, call 911 for an ambulance. Do NOT drive yourself to the hospital. * Ask your family members to learn CPR. * Learn to take your own blood pressure and pulse. Keep a record of your results. Ask your doctor when you should seek emergency medical attention. He or she will tell you which blood pressure reading is dangerous. Lifestyle Changes: * Maintain a healthy weight. Get help to lose any extra pounds. * Cut back on salt. * Limit canned, dried, packaged, and fast foods. * Don't add salt to your food. * Season foods with herbs instead of salt when you cook. * Break the smoking habit. Enroll in a stop-smoking program to improve your chances of success. * Limit fatty foods. * Check your lipid levels regularly. (Your doctor can show you how to do this.) * Build up your activity according to your doctor's recommendation. * Ask your doctor when it's okay to resume sexual activity. * Tell your doctor about any erectile dysfunction (ED) medication you are taking. Some ED medications are not safe if you take certain heart medications. * Try to manage stress. Follow Up: It is important for you to keep your follow up appointments with your medical provider. ACTIVITY RECOMMENDATIONS: Excess manipulation of the wrist should be avoided for the next 24-48 hours. * No lifting over 2 pounds (approximately a 1/2 gallon of milk) with the utilized arm for 24 hours. * No strenuous activity such as bowling or tennis for 3 days. * Keep the site of the procedure covered with a bandage for 24 hours. *You may shower the day after the procedure. Do not take a tub bath or submerge the puncture site in water for the next 3 days. *Do not operate any motorized equipment for 3 days. SPECIAL CARE INSTRUCTIONS: The site may be slightly bruised and sore following your procedure. Should any of the following occur, contact the Dr. who performed your procedure. 1. Redness/inflammation, swelling, chills, or fever, or colored drainage at procedure site within 3-7 days after your procedure. 2. Coldness, discoloration, ongoing numbness, severe pain, or swelling. Expect mild tingling of hand and tenderness at the puncture site for up to three days. If this persists beyond three days, or other symptoms develop, notify the Dr. who performed your procedure. BLEEDING: If the procedure site on your wrist begins to bleed, do not panic 1. Place 1 or 2 fingers firmly just slightly above the insertion site to stop the bleeding. You may be able to feel your pulse as you hold pressure. 2. Lift your finger after 5 minutes to see if the bleeding has stopped. 3. Once the bleeding has stopped, gently wipe the wrist area clean with a bandage. * If the bleeding from your wrist does not stop after 10 minutes, or if there is a large amount of bleeding or spurting, call 911 (do not drive yourself to the hospital). SKIN IRRITATION: * You may experience some redness and/or swelling in the area where radiation was administered. If any skin irritation occurs, please contact your family physician. FOLLOW UP VISIT: Keep any scheduled doctor appointments. Current Hospital Diet Patient's current hospital diet: AHA Diet (Heart Healthy) Discharge Diet Recommended Diet: AHA Diet (Heart Healthy) Procedures Procedures Performed: Cardiac cath CXR Pending Studies Studies pending at discharge: no Laboratory Results Last 24 Hours Test 12/24/16 05:40 White Blood Count 5.78 K/uL Red Blood Count 5.60 M/uL Hemoglobin 16.8 g/dL Hematocrit 48.4 % Mean Corpuscular Volume 86.4 fL Mean Corpuscular Hemoglobin 30.0 pg Mean Corpuscular Hemoglobin Concent 34.7 g/dl Platelet Count 189 K/uL Mean Platelet Volume 8.9 fL Neutrophils (%) (Auto) 81.1 % Lymphocytes (%) (Auto) 17.1 % Monocytes (%) (Auto) 1.2 % Eosinophils (%) (Auto) 0.2 % Basophils (%) (Auto) 0.2 % Neutrophils # (Auto) 4.69 K/uL Lymphocytes # (Auto) 0.99 K/uL Monocytes # (Auto) 0.07 K/uL Eosinophils # (Auto) 0.01 K/uL Basophils # (Auto) 0.01 K/uL RDW Standard Deviation 40.4 fL RDW Coefficient of Variation 12.7 % Immature Granulocyte % (Auto) 0.2 % Immature Granulocyte # (Auto) 0.01 K/uL Sodium Level 139 mmol/L Potassium Level 4.6 mmol/L Chloride Level 104 mmol/L Carbon Dioxide Level 28 mmol/L Anion Gap 7.0 mmol/L Blood Urea Nitrogen 17 mg/dl Creatinine 1.20 mg/dl Est Creatinine Clear Calc Drug Dose 61.7 ml/min Estimated GFR () 69.6 Estimated GFR (Non- 60.1 BUN/Creatinine Ratio 14.3 Random Glucose 177 mg/dl Calcium Level 9.1 mg/dl Magnesium Level 2.2 mg/dl Hemoglobin A1c Test 12/13/16 08:14 Range/Units Estimated Average Glucose 131 mg/dl Hemoglobin A1c 6.2 H 4.5-5.6 % Lipid Panel Test 12/13/16 08:14 Range/Units Triglycerides Level 71 0-150 mg/dl Cholesterol Level 128 0-200 mg/dl HDL Cholesterol 43 mg/dl Cholesterol/HDL Ratio 3.0 LDL Cholesterol, Calculated 71 mg/dl Medical Emergencies . Who to Call and When: Medical Emergencies: If at any time you feel your situation is an emergency, please call 911 immediately. Call 911 immediately or go to your nearest Emergency Room if you experience any of the following: Warning Signs and Symptoms of a Heart Attack * Chest pain that is not relieved by medication * Shortness of breath . Non-Emergent Contact Non-Emergency issues call your: Primary Care Provider . . "Provider Documentation" section prepared by Antoinna Dumont. . AMI Core Measures Reason no ASA as I/P: Treatment provided - N/A Reason no ASA at D/C: Treatment provided - N/A Reason no statin as I/P: Treatment provided - N/A Reason no statin at D/C: Treatment provided - N/A VTE Core Measure Inpt VTE Proph given/why not?: Unfractionated heparin SQ
--- NOTE | 2016-12-24 13:52 | Discharge Summary ---
Discharge Summary Date of Service Dec 24, 2016. (Antonina Dumont PA-C) Discharge Summary Admission Date: Dec 21, 2016 at 21:06 Discharge Date: Dec 24, 2016 Discharge Disposition: Home Principal Diagnosis: Moderate CAD Problems/Secondary Diagnoses: CAD s/p 3- vessel CABG Unstable angina Hyperlipidemia HTN Esophageal ulcer- nonbleeding on EGD/GERD Anxiety/depression Immunizations: Have You Had Influenza Vaccine: Yes Influenza Vaccine Date: May 12, 2008 History of Tetanus Vaccine?: Unknown History of Pneumococcal: Unknown History of Hepatitis B Vaccine: Unknown Procedures: Cardiac Cath - Brief Note v2 Preliminary Procedure Note Procedure Date Dec 24, 2016. Pre-Procedure Diagnosis Acute Coronary Syndrome AUC Score 8 Post-Procedure Diagnosis Moderate CAD Procedure(s) Performed Coronary Angiography, Left Heart Cath, LV Angiography, Bypass Graft Angiography , Femoral Artery Angiography Inbound Customer Service Representative Dr. Dempsey Elevator Constructor Supervisor(s) Tanya Marin,RTR Estimated Blood Loss 20 Medication(s) Fentanyl, Versed, Lidocaine 1% Preliminary Findings Patent SVG Ao - OM, Ao-Right PDA. Patent CARR - LAD. 80% proximal LAD, 100% LCx OM, 80% mid LAD ( before graft anastomosis ), 80% PDA ( before graft anastomosis ).Normal LV wall motion and EF ( est 65% ). Sheath in right common femoral artery. Cath site: 6 Fr sheath right femoral artery. Hemostasis: 6 FR Starclose vascular closure system. Complications: none. Plan: Patient currently on no anti anginal meds. AUC score for PCI is 4 . ( not in " appropriate category ). Will start antianginal meds with metoprolol and isosorbide mononitrate. If definite anginal symptoms refractory to medical therapy could then consider PCI to proximal LAD stenosis. Recommendations Medical therapy and/or Counseling Specimens None Fluids (cc crystalloids) 130 Drains none Anesthesia Versed,fentanyl,lidocaine 1 % local Procedural Complication(s) None Disposition PCU CHEST ONE VIEW PORTABLE CLINICAL HISTORY: CHEST PAIN dyspnea COMPARISON STUDY: 08/12/2008 FINDINGS: Mild stable cardiomegaly. Diaphragms are smooth. Chronic atelectasis left base. Lungs otherwise appear clear. Prior median sternotomy. IMPRESSION: Platelike atelectasis left base. Otherwise negative study. Electronically signed by: Chin Amezcua M.D. 12/21/2016 6:26 PM Dictated Date/Time: 12/21/2016 6:25 PM The status of this report is Signed. Draft = Not yet reviewed or approved by Radiologist. Signed = Reviewed and approved by Radiologist. Consultations: Cardiology (Antonina Dumont, DEON) Medication Reconciliation New Medications: Isosorbide Mononitrate (Isosorbide Mononitrate ER) 30 Mg Tabcr 30 MG PO QAM for 30 Days, #30 TABS Metoprolol Succinate (Metoprolol Succinate ER) 25 Mg Tabcr 25 MG PO QAM for 30 Days, #30 TABS Continued Medications: Ascorbic Acid (Vitamin C) 500 Mg Tab 1 TAB PO QAM Aspirin (Aspirin Ec) 81 Mg Tab 81 MG PO QPM Atorvastatin (Lipitor) 40 Mg Tab 40 MG PO QPM Cinnamon (Cinnamon) 500 Mg Tab 1 CAP PO QAM Clopidogrel (Plavix) 75 Mg Tab 75 MG PO Q2D Docusate Sodium (Docusate Sodium) 100 Mg Cap 1 CAP PO DAILY PRN for PRN CONSTIPATION for 30 Days, #30 CAP Escitalopram (Lexapro) 10 Mg Tab 10 MG PO QAM Esomeprazole Magnesium (Nexium) 40 Mg Capcr 40 MG PO QAM Fish Oil ([place]-3) 1 Ea Cap 1 CAP PO QAM Garlic (Garlic) 10 Mg Cap 1 TAB PO QAM Uzepyqcyfmi-Nboobwfsceg-Jnecma (Move Free Joint Health Ad) 1 Tab Tab 1 TAB PO QAM Loratadine (Claritin) 10 Mg Tab 10 MG PO QAM Multivitamin (Multivitamin) Tab 1 TAB PO QAM Nitroglycerin (Nitrostat) 0.4 Mg Sub 0.4 MG UT PRN, BTL Sucralfate (Carafate) 1 Gm Tab 1 TAB PO QID, TAB Referrals At Discharge Follow up Referrals: Family Practice Referral - Within 1 Week with Inder Maguire M.D. Discharge Exam Review of Systems: Constitutional: No fever, No chills, No sweats, No weakness, No fatigue Respiratory: No cough, No shortness of breath, No hemoptysis Cardiovascular: No chest pain, No edema, No palpitations Abdomen: No pain, No nausea, No vomiting, No diarrhea, No constipation, No GI bleeding Musculoskeletal: No joint pain, No muscle pain, No swelling, No calf pain Genitourinary - Male: No hematuria, No dysuria Neurologic: No weakness, No numbness/tingling Psychiatric: No depression symptoms, No anxiety Hematologic / Lymphatic: No abnormal bleeding/bruising Integumentary: No rash, No itch, No new/changing skin lesions Physical Exam: General Appearance: no apparent distress Eyes: normal inspection, PERRL ENT: hearing grossly normal Neck: supple Respiratory/Chest: lungs clear, no respiratory distress, no accessory muscle use Cardiovascular: regular rate, rhythm Abdomen / GI: normal bowel sounds, non tender, soft Extremities: no calf tenderness, no pedal edema Neurologic/Psychiatric: alert, normal mood/affect, oriented x 3 Skin: normal color, warm/dry, no rash (Antonina Dumont, DEON) Hospital Course H&P on admission: 71 y/o M Hx HPL, esophageal ulcer, CAD - CABG 2010. Pt developed upper CP which radiated to his jaw. He has NTG at home and took two which served to relieve his CP although the effect took approximately 5 min. He denies SOB, N/V, diaphoresis or light-headedness. The pt had an EGD 3 days prior due to dysphagia. This revealed a 5mm esophageal ulcer without evidence of bleeding. He was placed on Carafate which he took preceding the onset of his CP this evening. Physical Exam Vital Signs Date Time Temp Pulse Resp B/P (MAP) Pulse Ox O2 Delivery O2 Flow Rate FiO2 12/21/16 20:05 95 Room Air 12/21/16 20:05 70 18 174/94 95 Room Air 12/21/16 18:05 66 20 169/92 96 Room Air 12/21/16 18:05 98 Room Air 12/21/16 18:02 64 12/21/16 16:14 94 Room Air 12/21/16 16:08 36.8 76 20 127/81 93 Room Air General Appearance: WD/WN, no apparent distress Head: normocephalic Eyes: normal inspection ENT: normal ENT inspection, pharynx normal Neck: supple, no JVD Respiratory/Chest: chest non-tender, lungs clear, normal breath sounds, no respiratory distress, no accessory muscle use Cardiovascular: regular rate, rhythm, no edema, no gallop, no JVD, no murmur, normal peripheral pulses Abdomen/GI: normal bowel sounds, non tender, soft Back: normal inspection, normal range of motion Extremities/Musculoskelatal: normal inspection, no calf tenderness, normal capillary refill, no pedal edema, normal range of motion Neurologic/Psych: turbine 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 II-XII nml as tested, no motor/sensory deficits, alert, normal mood/affect, normal reflexes, oriented x 3 Skin: normal color, warm/dry, no rash CAD s/p 3- vessel CABG/Unstable angina: - Admitted to [facility] for cardiac monitoring - Trend cardiac enzymes- negative - EKG- no acute changes - Continue ASA 81 mg daily, Plavix 75 mg Q2D - Cardiology consulted, appreciate recommendations -- Cardiac cath on 12/24- start Metoprolol 25 mg QAM and Imdur 30 mg daily Hyperlipidemia: Lipitor 40 mg daily HTN: Medications as above Esophageal ulcer- nonbleeding on EGD/GERD- STABLE: - Pathology shows no H. pylori, no cancer - Continue PPI, Carafate - Continue f/u w/ GI as instructed Anxiety/depression: Lexapro 10 mg daily GI Prophylaxis: Protonix, Maalox PRN, IV Zofran PRN, Colace and/or Milk of Mag PRN DVT Prophylaxis: Heparin Code Status: LEVEL I, FULL Dispo: Discharge to home Total Time Spent: Greater than 30 minutes This includes examination of the patient, discharge planning, medication reconciliation, and communication with other providers. (Antonina Dumont ., PA-C) I personally examined pt and verified all ortega points w T Julia CHAVARRIA no cp. had cath no stent 80% stenosis as possible culprit but med management for now. extensive discussion w pt//dtr on meds, eating habits, exercise. to use BARRAZA/angina/fatigue w exertion as good barometer on progress w meds vs needing stent. to resume healthy eating he did after surgery in 2010. vitals noted nad breathing unlabored no pallor or icterus CAD/unstable angina - med management, safe for home once OK w cardiology. meds as above, eating to resume healthy diet, graded increase in exercise as tolerated and as approved by cardio; if ongoing angina then stenting (Janusz Hodges D.O.) Discharge Instructions Please refer to the electronic Patient Visit Report (Discharge Instructions) for additional information. (Antonina Dumont ., PA-C) Follow-Up Please follow-up with your PCP within 5-7 days Please follow-up with Cardiology as instructed by Dr. Dempsey Please follow-up/keep all of your subspecialty appointments (Antonina Dumont, PA-C) Additional Copies To Inder Maguire M.D.
[2016-12-25] MEDS ORDERED: METOPROLOL SUCC 25MG EXT REL TAB PO SCH (09:00)
[2016-12-25] MEDS ORDERED: ISOSORBIDE MONONITRATE 30 MG TABCR PO SCH (09:00)
--- NOTE | 2016-12-26 12:32 | Cardiac Catheterization ---
Procedure Note Procedure Date Dec 24, 2016. Pre-Procedure Diagnosis Acute Coronary Syndrome AUC Score 8 Post-Procedure Diagnosis Severe CAD, Normal LV Systolic Function, Normal Intracardiac Pressures, Cardiothoracic Finding (Patent bypass grafts) Procedure(s) Performed Coronary Angiography, Left Heart Cath, LV Angiography, Bypass Graft Angiography , Femoral Artery Angiography Inker Machine Dr. Dempsey Fmd Teacher(s) VERONIKA Maradiaga Estimated Blood Loss 20 ml Medication(s) Fentanyl, Versed, Lidocaine 1% Summary of Findings Clinical indications: Status post three-vessel bypass surgery October 31, 2010. Left internal mammary artery graft to LAD. Saphenous vein graft from aorta to left circumflex marginal and another saphenous vein graft from aorta to right PDA. Stress echocardiogram July 2016 negative for evidence of myocardial ischemia. The patient was admitted after a prolonged episode of chest discomfort radiating to his jaw which occurred at rest. Electrocardiogram with nonspecific findings. Cardiac enzymes negative for myocardial injury. Because of his description of the chest discomfort consistent with angina and his history of coronary artery disease cardiac catheterization was indicated. Patient also complains of decreased exercise tolerance over the past several months accompanied by exertional dyspnea. This only occurs with strenuous activities. Catheterization site: 6 Hungarian sheath right femoral artery. Catheters: 6 Hungarian JL4, JR4, DEMAR, and pigtail catheters. Hemostasis: 6 Hungarian StarClose vascular closure system. Complications: None. Findings: Fluoroscopy revealed coronary calcifications, vein graft markers, sternal wire sutures, and a sternal band. The coronary circulation was right dominant. The left main was a medium caliber vessel giving rise to medium caliber left anterior descending and small caliber left circumflex coronary arteries. The left main had no obstructive disease. The ostium of the LAD had a 30 percent stenosis. The very proximal LAD gave rise to a very small caliber 1st diagonal artery which had an ostial 70 percent stenosis. It then gave rise to a prominent septal perforating artery which had an ostial 90 percent stenosis. Proximal LAD then had an 80 percent stenosis. Was then followed by a bifurcating small caliber 2nd diagonal artery. The 2nd diagonal had a 30 percent proximal stenosis and 30 percent mid stenosis. Following the diagonal the mid LAD was diffusely diseased with 70 percent luminal diameter narrowing. The end to side anastomosis of the left internal mammary artery graft was visualized. There was competitive flow in the remainder of the mid and distal LAD distal to the graft insertion. Injection of the left internal mammary artery graft revealed to be free of obstructive disease. The proximal L subclavian artery was visualized. This had no obstructive disease. The DEMAR had a patent end to side anastomosis to the mid LAD. After the graft insertion the mid LAD had minor luminal irregularities. The distal LAD terminated at the apex of the left ventricle as a very small caliber vessel. The very proximal left circumflex gave rise to a very small caliber diagonal type branch. The circumflex then continued on in the AV groove as a small caliber vessel. Following the origin of a prominent left atrial branch the mid left circumflex was totally occluded. The saphenous vein graft to left circumflex marginal was widely patent. It gave rise to a patent end to side anastomosis to the mid segment of the marginal. The mid and distal segment of the marginal following the graft anastomosis had minor luminal irregularities. The right coronary was a small to medium caliber vessel. 10 percent proximal, 30 percent mid, and 20 percent distal stenoses. The RCA gave rise to a very small caliber posterior descending artery which had a 50-70 percent proximal stenosis and a focal 95 % mid stenosis. The distal end anastomosis of the vein graft was visualized. Via retrograde flow from the end to side anastomosis the distal and mid segment of the vein graft was visualized. Following the origin of the PDA the distal RCA gave rise to 2 very small caliber posterolateral arteries which had minor luminal irregularities. the vein graft to the PDA was widely patent. It gave rise to a patent end to side anastomosis to the mid segment of the PDA. The mid to distal PDA after the graft insertion had minor luminal irregularities. Left ventricular angiography performed from the 30 degree right anterior oblique projection revealed all LV segments to contract normally. Calculated LV ejection fraction 67 percent. No mitral regurgitation. Right femoral artery angiography revealed sheath to be present in the right common femoral artery. No obstructive disease was noted in the common femoral artery, right profunda artery, or right superficial femoral artery. No obstructive disease in the right external iliac artery. Plan: The patient has patent bypass grafts. Currently on no anti anginal medications. He will be started on beta-ford and long-acting nitrate therapy. If he had anginal symptoms refractory to maximum medical therapy consideration could be given to performing intervention to the 80 percent proximal LAD stenosis prior to the origin of the 2nd diagonal artery. Was extensively discussed with the patient that intervention to the stenosis would not increase his longevity or prevent a myocardial infarction. At this time it is felt by me that the risk of any such procedure would outweigh the benefits. As stated above he was on no anti anginal medications at the time of admission. 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 Hemodynamics Rest Ao: 136/69/99 mm Hg Final Ao: 136/65/98 mm Hg LV: 135/4 mm Hg Recommendations Medical therapy and/or Counseling Specimens None Radiation Exposure (mGy) 1972 Contrast (mls) 190 ml Visipaque Fluids (cc crystalloids) 130 Drains none Anesthesia Intravenous Versed and fentanyl. Lidocaine 1 percent for local anesthesia Procedural Complication(s) None Disposition PCU ACC Data Cardiac Status Clinical evaluation leading to the procedure CAD Presntation: Unstable angina Anginal Classification: CCS IV Heart Failure: No Cardiogenic Shock w/in 24Hrs: No Cardiac Arrest w/in 24Hrs: No Imaging studies past 6 months: Yes Stress studies past 6 months: Yes Standard Exercise Stress Test: No Stress Echocardiogram: Yes - Negative Stress Testing w/SPECT MPI: No Cardiac CTA: No Coronary Anatomy Dominant: Right Left Main (% Stenosis): Normal LAD (% Stenosis): Ostial (30), Proximal (80), Mid (70) D1 (% Stenosis): Ostial (70) D2 (% Stenosis): Proximal (30), Mid (30) Circumflex (% Stenosis): Mid (100) RCA (% Stenosis): Proximal (10), Mid (30), Distal (20) R PDA (% Stenosis): Proximal (50-70), Mid (95) Grafts - LAD (%): Normal Grafts - Circumflex (%): Normal Grafts - RCA (%): Normal Left Ventricular Angiography EF (%): 67 Wall Motion: Inferior (Normal), Apical (Normal), Anterior (Normal) Mitral Regurgitation: None Diagnostic Physician's Name: Malvin Dempsey M.D. Closure Device Percutaneous Entry Location: Femoral Closure Device: StarClose Recommendations: Medical therapy and/or Counseling
== END 2016-12-24 18:24 | disposition home or self-care (01) ==
LOC: C.EDB 16:02 → UNDOADMIN 20:50 → C.MED 20:50 → ENRESERV 20:56 → CANRESERV 20:56 → ENRESERV 21:00 → EDBEDREQ 21:01 → INTOOBSV 21:06 → C.MED 21:06 → C.2T 12-24 11:02
PROVIDERS: ADMIT Internal Medicine; ATTEND Family Medicine
DX: I25.10 Atherosclerotic heart disease of native coronary artery without angina pectoris (principal); E78.5 Hyperlipidemia, unspecified; I10 Essential (primary) hypertension; K22.10 Ulcer of esophagus without bleeding; F41.8 Other specified anxiety disorders; Z95.1 Presence of aortocoronary bypass graft

== ENCOUNTER → 2017-06-11 | Outpatient (CLI) | payer BC, OTHER ==
[~2017-06-11] MED LIST changes: -ASPEC81 PO; +ASPI81TA28 PO; +IMDSR30 PO; +SUCR1TAB29 PO; +TPRSR25 PO
[2017-06-11 10:47] LABS: ALT/SGPT 31 U/L (12-78); AST/SGOT 20 U/L (15-37); BLOOD UREA NITROGEN 17 mg/dl (7-18); CALCIUM 9.3 mg/dl (8.5-10.1); CARBON DIOXIDE 29 mmol/L (21-32); CHLORIDE 106 mmol/L (98-107); CREATININE 0.99 mg/dl (0.60-1.40); GLUCOSE 105 mg/dl (70-99); POTASSIUM 4.5 mmol/L (3.5-5.1); SODIUM 138 mmol/L (136-145)
[2017-06-11 10:50] LABS: CHOLESTEROL 119 mg/dl (0-200); CHOLESTEROL/HDL RATIO 2.7; HDL CHOLESTEROL 44 mg/dl; LDL CHOLESTEROL CALCULATED 61 mg/dl; TRIGLYCERIDES 70 mg/dl (0-150); VERY LOW DENSITY LIPOPROT CALC 14 mg/dl
[2017-06-11 11:10] LABS: ESTIMATED AVERAGE GLUCOSE 134 mg/dl; HA1C FLAG Normal (Normal)
[2017-06-11 14:18] LABS: RATIO 26.3 mcg/mg (0-30.0)
== END | disposition home or self-care (01) ==
LOC: C.LAB1850 09:10
PROVIDERS: ATTEND Internal Medicine
DX: E78.5 Hyperlipidemia, unspecified (principal); E11.9 Type 2 diabetes mellitus without complications

== ENCOUNTER → 2017-07-29 | Outpatient (CLI) | payer BC ==
--- NOTE | 2017-07-29 12:23 | DIAGNOSTIC IMAGING REPORT ---
CHEST 2 VIEWS ROUTINE CLINICAL HISTORY: 71 years-old Male presenting with R06.02 SOB (shortness of breath on exertion)[id number]. TECHNIQUE: PA and lateral views of the chest were obtained. COMPARISON: 12/21/2016. FINDINGS: Postsurgical changes of coronary artery bypass grafting. Cardiac mediastinal silhouette otherwise normal. Lungs and pleural spaces clear. Degenerative changes of the thoracic spine. Upper abdomen normal. IMPRESSION: 1. No acute cardiopulmonary disease. Electronically signed by: Gregory Law M.D. 07/29/2017 12:22 PM Dictated Date/Time: 07/29/2017 12:20 PM
== END | disposition home or self-care (01) ==
LOC: C.RAD1850 12:02
PROVIDERS: ATTEND Internal Medicine
DX: R06.02 Shortness of breath (principal)

== ENCOUNTER 2022-05-15 19:08 | Inpatient (IN) ==
--- NOTE | 2022-05-15 19:30 | Emergency Department Note ---
History of Present Illness General Chief complaint: Flu Like Symptoms Stated complaint: FEVER,HEADACHE,UPSET STOMACH,DIARREAH,SOB Time Seen by Provider: 05/15/22 19:16 Source: patient and family ( who is at the bedside) Mode of arrival: ambulatory Limitations: no limitations History of Present Illness Maximum Pain Intensity: 7 This patient is 76-year-old male who comes in after feeling ill since last night he had a headache and a runny nose he is has had a little bit of a cough intermittently. He has had some nausea today as well. He does tend to have chronic headaches in fact he says is been going on for a year or so he had an MRI done about 2 weeks ago on the which showed acute on chronic sinusitis he was recently started on Augmentin. He also had some diarrhea. He has some mild epigastric discomfort at times temperatures been up to 102. No joint aches no focal numbness weakness no chest pain or shortness of breath. No dysuria hematuria no known sick contacts. He is been fully vaccinated against COVID as well as a flu. No rash. No tick bites. He is on Plavix Home Medications Medication Instructions Recorded Confirmed Type ascorbic acid (vitamin C) 500 mg 500 mg PO QAM 08/04/18 05/15/22 History chewable tablet (Vitamin C) aspirin 81 mg tablet,delayed 81 mg PO QAM 08/04/18 05/15/22 History release cinnamon bark 500 mg capsule 2 cap PO QAM 08/04/18 05/15/22 History (Cinnamon) garlic 1,000 mg capsule 1,000 mg PO QAM 08/04/18 05/15/22 History glucosam 750 mg-chondroi 100 2 tab PO QAM 08/04/18 05/15/22 History mg-hyalur 1.65 mg-CF borate 108 mg tablet ([facility]) loratadine 10 mg tablet (Claritin) 10 mg PO QAM 08/04/18 05/15/22 History multivitamin 1 tab PO QAM 08/04/18 05/15/22 History omega-3 acid ethyl esters 1 gram 1 cap PO QAM 02/28/19 05/15/22 History capsule albuterol sulfate 90 mcg/actuation 1 inh inhalation QID PRN shortness 06/16/21 05/15/22 Rx aerosol inhaler of breath or wheezing #8.5 grams atorvastatin 40 mg tablet 40 mg PO PM #90 tabs 10/02/21 05/15/22 Rx clopidogrel 75 mg tablet 75 mg PO Q OTHER DAY #45 tabs 10/02/21 05/15/22 Rx escitalopram oxalate 10 mg tablet 10 mg PO QAM #90 tabs 10/02/21 05/15/22 Rx esomeprazole magnesium 40 mg 40 mg PO QAM #90 caps 10/02/21 05/15/22 Rx capsule,delayed release isosorbide mononitrate 30 mg 30 mg PO QAM #90 tabs 10/02/21 05/15/22 Rx tablet,extended release 24 hr metoprolol succinate 25 mg 25 mg PO QAM #90 tabs 10/02/21 05/15/22 Rx tablet,extended release 24 hr nitroglycerin 0.4 mg sublingual 0.4 mg sublingual UD PRN Chest 10/02/21 05/15/22 Rx tablet Pain #30 tabs fluticasone fur. 100 mcg-umeclid 1 inh inhalation DAILY #3 Inhalers 04/26/22 05/15/22 Rx 62.5 mcg-vilant 25 mcg inhalat.powder (Trelegy Ellipta) fluticasone propionate 50 2 spray intranasal DAILY 04/26/22 05/15/22 History mcg/actuation nasal spray,suspension amoxicillin 875 mg-potassium 1 tab PO BID 05/15/22 05/15/22 History clavulanate 125 mg tablet Allergies Allergy/AdvReac Type Severity Reaction Status Date / Time Iodinated Contrast Media AdvReac Intermediate "FEELING Verified 05/15/22 19:56 FUNNY" Past Med/Surg History Medical History Borderline diabetes CAD (coronary artery disease) of artery bypass graft Depression Esophageal ulcer without bleeding GERD (gastroesophageal reflux disease) Hyperlipidemia Hypertension Obesity Osteoarthritis Sleep apnea CPAP Transient ischemic attack (TIA) 10 YEARS AGO -no deficits, no neurologist Surgical History History of cardiac cath 2010 [facility] --> CABG - FOLLOWS W/ DR. RUBALCAVA 2016 [facility] - NO STENTS/ANGIOPLASTY History of colonoscopy (2015) History of coronary artery bypass graft (2010) 2010 - [facility] - 3 VESSELS - FOLLOWS W/ DR. RUBALCAVA History of esophagogastroduodenoscopy (EGD) History of neck surgery benign lump removed off neck History of surgery LIPOMA EXCISION History of thumb surgery left thumb bone spur removal History of tooth extraction Family History Mother Family history of diabetes mellitus Myocardial infarction Sister Family history of diabetes mellitus Father Myocardial infarction Other Hypertension Kidney stones No family history of adverse response to anesthesia Denies family history of Ovarian cancer Prostate cancer Crohn's disease Breast cancer Lung cancer Colorectal cancer Stroke Social History Smoking Status: Never smoker Second Hand Exposure: No; Do You Dip or Chew Tobacco: No; Tobacco Cessation Education Requested by Patient: No Hx Alcohol Use: Yes Alcohol type: beer Hx Substance Use: No Preferred Language: Tajik Communication Ability: Effective Assistant Toddler Teacher Required: No Beliefs That Will Affect Care: Sikh Sikh Beliefs: Buddhist. 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 Other Information That Helps Us Care for You: No Feels Safe at Home: Yes Safety Concerns: Feels Safe At This Time Childhood Exposure to Second-Hand Smoke: Yes caffeine: No Dental Care, Regularly: Yes Physical Activity Frequency: Daily Seatbelt Use: always Sunscreen Use: No Assistive Devices: CPAP, Denture - Upper and Glasses Review of Systems A total of 10 systems reviewed and were otherwise negative Physical Exam Vital Signs Vital Signs - 24 hr 05/15/22 19:11 05/15/22 20:16 05/15/22 20:31 Temperature 36.7 C Temperature Source Temporal Artery Scan Pulse Rate 86 89 Pulse Rate [Apical] 85 Pulse Rate from SpO2 Sensor Respiratory Rate 20 26 H Blood Pressure 135/73 Blood Pressure [Right Arm] 153/66 H Blood Pressure Mean 93 Blood Pressure Mean [Right Arm] 95 Pulse Oximetry 93 93 96 Oxygen Delivery Method Room Air Room Air Room Air Sepsis Recent Fever Within 48 Hours No Sepsis New/Unexplained Change in Mental Status N/A Sepsis Action Taken by Nursing No Action Required 05/15/22 20:30 05/15/22 21:10 05/15/22 22:05 Temperature Temperature Source Pulse Rate 83 Pulse Rate [Apical] Pulse Rate from SpO2 Sensor 83 79 Respiratory Rate 27 H 21 22 Blood Pressure 131/67 185/84 H Blood Pressure [Right Arm] Blood Pressure Mean 88 117 Blood Pressure Mean [Right Arm] Pulse Oximetry 93 95 Oxygen Delivery Method Room Air Room Air Sepsis Recent Fever Within 48 Hours Sepsis New/Unexplained Change in Mental Status Sepsis Action Taken by Nursing General: Well developed well nourished not ill-appearing older male who appears in no acute distress, breathing comfortably on room air. Normal speech HEENT: Normal cephalic atraumatic. Pupils are equal round and reactive to light. Extraocular movements are intact. Oropharynx is pink with moist mucous membranes. No swelling of the mouth lips or tongue. Neck: Supple with a midline trachea. No meningeal signs or stiffness, no JVD or bruits. No Stridor. No neck pain or stiffness. Chest: Clear to auscultation bilaterally. No wheezes or rhonchi. No increased work of breathing. Heart: Regular rate and rhythm without murmurs or gallops. Abdomen: Soft, minimally tender in the epigastric area, nondistended without rebound guarding or rigidity. Extremities: No cyanosis clubbing or edema. No calf tenderness or assymetry Spine/Back. Non tender to palpation. No CVA tenderness Skin: Good turgor without rashes. Neurologic exam: Cranial nerves two through 12 are intact. Motor and sensation are intact and symmetrical throughout. Course Administered Medications Magnesium Sulfate/Dextrose (Magnesium Sulfate / D5w) 1 gm in 100 mls @ 50 mls/hr IV Q2H [facility] Stop: 05/16/22 03:44 Last Admin: 05/16/22 00:39 Dose: 50 mls/hr Documented By: DELORIS Lactated Ringer's (Lr) 1,000 mls @ 125 mls/hr IV .Q8H [facility] Stop: 05/16/22 07:44 Last Admin: 05/16/22 00:42 Dose: 125 mls/hr Documented By: DELORIS Raspberry (Raspberry Syrup 5 Ml Udp) 5 ml PO Q6 [facility] Stop: 05/26/22 00:00 Last Admin: 05/16/22 00:40 Dose: 5 ml Documented By: DELORIS Vancomycin HCl (Vancomycin Hcl 250 Mg/5 Ml Soln) 250 mg PO Q6 [facility] Stop: 05/26/22 00:00 Last Admin: 05/16/22 00:40 Dose: 250 mg Documented By: RAEB Discontinued Medications Piperacillin Sod/Tazobactam Sod (Zosyn) 4.5 gm in 120 mls @ 240 mls/hr IV NOW ONE Stop: 05/15/22 21:16 Last Infusion: 05/15/22 22:10 Dose: 0 mls/hr Documented By: Admin: 05/15/22 21:23 Dose: 240 mls/hr Documented By: KATIUSKA Sodium Chloride (Nss 1000ml) 1,000 mls @ 999 mls/hr IV .Q1H1M ONE Stop: 05/15/22 21:48 Last Infusion: 05/15/22 22:27 Dose: 0 mls/hr Documented By: Admin: 05/15/22 21:22 Dose: 999 mls/hr Documented By: KATIUSKA Medical Decision Making Differential Diagnosis Sinusitis, COVID, influenza, URI, intra-abdominal process, sepsis, UTI, electrolyte or metabolic abnormality, cardiac disease Medical Records Attestation: I reviewed the patient's medical records. Home Medications Current Medication List: was personally reviewed by me Laboratory Data Attestation: I reviewed the patient's lab results. Result diagrams: 05/15/22 20:06 05/15/22 20:06 Lab Results 05/15/22 05/15/22 05/15/22 Range/Units 19:36 20:06 20:06 WBC 18.14 H (4.8-10.8) K/ul RBC 5.27 (4.63-6.08) M/uL Hgb 15.6 (14.0-18.0) g/dl Hct 46.7 (40.1-51.0) % MCV 88.6 (80.0-100.0) fL MCH 29.6 (25.0-34.0) pg MCHC 33.4 (32.0-36.0) g/dL RDW Std Deviation 43.8 (36.4-46.3) fL RDW Coeff of Erika 13.4 (11.5-14.5) % Plt Count 175 (130-400) K/uL MPV 8.8 L (9.4-12.4) fL Immature Gran % (Auto) 0.7 % Neut % (Auto) 84.4 % Lymph % (Auto) 4.6 % [place] % (Auto) 9.8 % Eos % (Auto) 0.3 % Baso % (Auto) 0.2 % Neut # (Auto) 15.31 H (1.4-6.5) K/uL Lymph # (Auto) 0.83 L (1.2-3.4) K/uL [place] # (Auto) 1.78 H (0.24-0.82) K/uL Eos # (Auto) 0.06 (0-0.50) K/uL Baso # (Auto) 0.04 (0-0.2) K/uL Immature Gran # (Auto) 0.12 H (0.00-0.02) K/uL Sodium 133 L (136-145) mmol/L Potassium 4.1 (3.5-5.1) mmol/L Chloride 99 (98-107) mmol/L Carbon Dioxide 26 (21-32) mmol/L Anion Gap 8 (3-11) BUN 18 (6-23) mg/dl Creatinine 1.10 (0.6-1.4) mg/dl Est Cr Clr Drug Dosing 62.6 ml/min Est GFR ( Amer) 74.7 ml/min Est GFR (Non-Af Amer) 64.4 ml/min BUN/Creatinine Ratio 16.4 (10-20) Glucose 122 H (70-99(Fasting)) mg/dl Lactate (0.4-2.0) mmol/L Calcium 8.8 (8.5-10.1) mg/dl Magnesium 1.7 (1.7-2.4) mg/dl Total Bilirubin 1.5 H (0.2-1.0) mg/dl Direct Bilirubin 0.3 H (0-0.2) mg/dl AST 18 (13-39) U/L ALT 18 (7-52) U/L Alkaline Phosphatase 76 (34-104) U/L Troponin I High Sens 10.0 (0-20) pg/ml Total Protein 6.8 (6.0-8.3) gm/dl Albumin 4.2 (3.4-5.0) gm/dl Procalcitonin (0-0.5) ng/ml SARS-CoV-2 (PCR) POSITIVE A* (Negative) Influenza Type A (PCR) Negative (Neg) Influenza Type B (PCR) Negative (Neg) RSV (RT-PCR) Negative (Neg) 05/15/22 05/15/22 Range/Units 20:06 20:06 WBC (4.8-10.8) K/ul RBC (4.63-6.08) M/uL Hgb (14.0-18.0) g/dl Hct (40.1-51.0) % MCV (80.0-100.0) fL MCH (25.0-34.0) pg MCHC (32.0-36.0) g/dL RDW Std Deviation (36.4-46.3) fL RDW Coeff of Erika (11.5-14.5) % Plt Count (130-400) K/uL MPV (9.4-12.4) fL Immature Gran % (Auto) % Neut % (Auto) % Lymph % (Auto) % [place] % (Auto) % Eos % (Auto) % Baso % (Auto) % Neut # (Auto) (1.4-6.5) K/uL Lymph # (Auto) (1.2-3.4) K/uL [place] # (Auto) (0.24-0.82) K/uL Eos # (Auto) (0-0.50) K/uL Baso # (Auto) (0-0.2) K/uL Immature Gran # (Auto) (0.00-0.02) K/uL Sodium (136-145) mmol/L Potassium (3.5-5.1) mmol/L Chloride (98-107) mmol/L Carbon Dioxide (21-32) mmol/L Anion Gap (3-11) BUN (6-23) mg/dl Creatinine (0.6-1.4) mg/dl Est Cr Clr Drug Dosing ml/min Est GFR ( Amer) ml/min Est GFR (Non-Af Amer) ml/min BUN/Creatinine Ratio (10-20) Glucose (70-99(Fasting)) mg/dl Lactate 1.5 (0.4-2.0) mmol/L Calcium (8.5-10.1) mg/dl Magnesium (1.7-2.4) mg/dl Total Bilirubin (0.2-1.0) mg/dl Direct Bilirubin (0-0.2) mg/dl AST (13-39) U/L ALT (7-52) U/L Alkaline Phosphatase (34-104) U/L Troponin I High Sens (0-20) pg/ml Total Protein (6.0-8.3) gm/dl Albumin (3.4-5.0) gm/dl Procalcitonin 1.69 H (0-0.5) ng/ml SARS-CoV-2 (PCR) (Negative) Influenza Type A (PCR) (Neg) Influenza Type B (PCR) (Neg) RSV (RT-PCR) (Neg) Imaging Data Attestation: I personally reviewed and interpreted this imaging study as follows: My Impression: Chest x-rayno acute infiltrate, failure, pneumothorax seen. Poststernotomy changes. Radiologist's Impression: Chest X-Ray 05/15/22 19:25 XR chest 1V portable CLINICAL HISTORY: Sepsis TECHNIQUE: Single frontal radiograph of the chest was obtained. Comparison: Comparison is made to chest radiographs 01/05/2021 FINDINGS: Median sternotomy wires are unchanged. Cardiomegaly is noted. The lungs are clear. No evidence of pleural effusion or pneumothorax. IMPRESSION: No acute chest disease. ACT 112: Negative or not required by law. Electronically signed by: Lamin Castañeda M.D. 05/15/2022 7:55 PM Abdominal and pelvis CT no contrast. Please refer to stat rad report. There is a gallstone but no findings to suggest cholecystitis there is a kidney stone but no obstructive uropathy. There are no acute findings to explain his symptoms. ECG Data Attestation: I personally reviewed and interpreted this ECG as follows: Indication: + weakness Rate (beats per minute): 86 Rhythm: + normal sinus ECG Intervals/blocks: + Normal QRS and + Normal [place] ECG [place]: + Normal ECG ST segments: + Normal ST segments and + T-wave inversions (Lateral) ECG Findings: + Poor R wave progression Comparison ECG Date: from (12/21/16) Change: no significant change (T wave inversions were also present on this EKG) MDM Narrative This patient comes in as described above. He was placed on a vehicle monitor technician room B2. He is here for treatment and evaluation of fever, nausea, diarrhea and a headache. Talking to the patient and his he has had ongoing headaches for about a year he had a CAT scan and MRI done recently which did show sinusitis. He is nontoxic [id number] he has nothing to suggest meningitis or encephalitis. He is actually afebrile here. He is not hypoxemic. IV access was established full sepsis type work-up was obtained. Chest x-ray was clear and did not suggest congestive heart failure pneumonia or pneumothorax. EKG shows no acute changes compared to old. His white count is elevated 18. He has no severe electrolyte or metabolic abnormalities. Nothing suggest cardiac disease. I did a CAT scan of his abdomen there is no acute findings. COVID test was positive he did have COVID in March so it is possible this could be residual however he was exposed recently as well. He looks well but given his high white count and his age and other medical problems I do think he should be admitted/observed. He was given Zosyn 4.5 g IV. He was also given IV fluids. Continuous cardiac monitoring: Orders placed in EMR for continuous cardiac monit oring. Upon my interpretation, the patient was noted to be in normal sinus rhythm rate of 80. Impression & Plan COVID, Headache, Nausea & vomiting, Diarrhea, Lab test positive for detection of COVID-19 virus, Elevated WBC count Discharge Plan Visit Data Chief Complaint: Flu Like Symptoms Stated Complaint: FEVER,HEADACHE,UPSET STOMACH,DIARREAH,SOB ED Provider: Ronny Chau Discharge Problem: COVID, Headache, Nausea & vomiting, Diarrhea, Lab test positive for detection of COVID-19 virus, Elevated WBC count Patient Disposition: Admitted As Inpatient Discharge Instructions Interventions: ED Discharge Assessment Last Done: 05/15/22 23:04
--- NOTE | 2022-05-15 19:56 | XRay Report ---
XR chest 1V portable CLINICAL HISTORY: Sepsis TECHNIQUE: Single frontal radiograph of the chest was obtained. Comparison: Comparison is made to chest radiographs 01/05/2021 FINDINGS: Median sternotomy wires are unchanged. Cardiomegaly is noted. The lungs are clear. No evidence of ple ural effusion or pneumothorax. IMPRESSION: No acute chest disease. ACT 112: Negative or not required by law. Electronically signed by: Lamin Castañeda M.D. 05/15/2022 7:55 PM
[2022-05-15 20:26] LABS: Influenza A virus by PCR Negative (Neg); Influenza B virus by PCR Negative (Neg); RSV by PCR Negative (Neg)
[2022-05-15 20:27] LABS: Basophils # (auto) 0.04 K/uL (0-0.2); Basophils % (auto) 0.2 %; Eosinophils # (auto) 0.06 K/uL (0-0.50); Eosinophils % (auto) 0.3 %; Hematocrit (blood only) 46.7 % (40.1-51.0); Hemoglobin 15.6 g/dl (14.0-18.0); Immature Granulocytes # (auto) 0.12 K/uL (0.00-0.02); Immature Granulocytes % (auto) 0.7 %; Lymphocytes # (auto) 0.83 K/uL (1.2-3.4); Lymphocytes % (auto) 4.6 %; Mean Corpuscular Hemoglobin 29.6 pg (25.0-34.0); Mean Corpuscular Hgb Conc 33.4 g/dL (32.0-36.0); Mean Corpuscular Volume 88.6 fL (80.0-100.0); Mean Platelet Volume 8.8 fL (9.4-12.4); Monocytes # (auto) 1.78 K/uL (0.24-0.82); Monocytes % (auto) 9.8 %; Neutrophils # (auto) 15.31 K/uL (1.4-6.5); Neutrophils % (auto) 84.4 %; Platelet Count 175 K/uL (130-400); RDW Coefficient of Variation 13.4 % (11.5-14.5); RDW Standard Deviation 43.8 fL (36.4-46.3); Red Blood Count 5.27 M/uL (4.63-6.08); White Blood Count 18.14 K/ul (4.8-10.8)
[2022-05-15 20:32] LABS: SARS CoV2 RNA(COVID-19)Cepheid POSITIVE (Negative)
[2022-05-15 20:47] LABS: Albumin Level 4.2 gm/dl (3.4-5.0); BUN Creatinine Ratio 16.4 (10-20); Bilirubin Direct 0.3 mg/dl (0-0.2); Bilirubin,Total 1.5 mg/dl (0.2-1.0); Calcium 8.8 mg/dl (8.5-10.1); Creatinine Clr Calc Pharmacy 62.6 ml/min; Est GFR (African American) 74.7 ml/min; Est GFR (Non-African American) 64.4 ml/min; Magnesium 1.7 mg/dl (1.7-2.4); Potassium 4.1 mmol/L (3.5-5.1); Total Protein 6.8 gm/dl (6.0-8.3)
[2022-05-15] MEDS ORDERED: PIPERACILLIN/TAZOBACTAM 4.5 GM/120 ML BAG IV ONE (20:47)
[2022-05-15] MEDS ORDERED: SODIUM CHLORIDE 0.9% 1000ML 1,000 ML IV ONE (20:48)
--- NOTE | 2022-05-15 22:20 | History & Physical Report ---
Date of Service May 15, 2022 Assessment & Plan (1) Fever: Plan: 76yo male with history of CAD, HTN, HLP presents with fever x 2 days, Tm of 102 as well as watery diarrhea. Patient has been on Augmentin x 5 days for sinus congestion. Recent Covid-19 infection in March but had exposure last week. He is fully vaccinated. Presently afebrile, HD stable, mildly ill in appearance. Elevated WBC at 18.14 with neutrophil predominance. Procalcitonin elevated at 1.69. CT of the abdomen with results above - nonobstructive renal stone, 5mm gall stone as well as mild colitis findings. Source of fever unclear. Possible C.diff given fever, diarrhea, leukocytosis, colitis on CT and current antibiotic use. Doubt active Covid-19 given recent infection 1 month ago. PCR may remain positive for several months following infection. Doubt renal stone is causing fever - no flank pain or dysuria. UA is pending Doubt gallstone is causing fever - patient with no abdominal pain or RUQ tenderness. He does have mild elevation of Dbili and Tbili with normal Alkaline phosphatase -Admit to medical -Maintain Covid isolation for now -Repeat CBC and LFTs in AM -Check stool for c. diff -Empiric PO Vancomycin 250mg po q6 -Empiric Zosyn (2) Diarrhea: Plan: Patient with 2 days of watery diarrhea, fever. Elevated WBC and procalcitonin. Mild colitis noted on CT of the abdomen. Possible c.diff given current antibiotic use -Stool for c. diff -PO Vancomycin empirically -IVF and electrolyte repletion (3) CAD (coronary artery disease) of artery bypass graft: Plan: Patient with history of CAD s/p CABG x 3V in 2010. He had catheterization in 2017 which revealed normal LV function and patent grafts. He denies chest pain -Continue ASA -Continue Plavix every other day -Continue Atorvastatin -Continue Metoprolol -Continue Isosorbide mononitrate -Nitro as needed -Pepcid 40mg daily for GERD - consider DC Nexium (4) Hypertension: Plan: Blood pressure mildly elevated -Continue Isosorbide, Metoprolol (5) Hyperlipidemia: Plan: Chronic -Continue Atorvastatin (6) GERD without esophagitis: Plan: Chronic. Well controlled. Patient on Nexium outpatient -Pepcid 40mg po daily (7) Type 2 diabetes mellitus: Plan: Diet controlled -Fingersticks (8) Moderate obstructive sleep apnea: Plan: Chronic. Patient is compliant with CPAP. -Continue CPAP qHS History of Present Illness Chief Complaint: fever, diarrhea Primary Care Provider: Inder Maguire MD Jaya Morfin is a 76yo male with history of CAD s/p 3V CABG in 2010, HTN, HLP, GERD and diet controlled DM presenting with two days of fever and diarrhea. Patient has been having sinus congestion and discomfort for the last week. [facility] He is presently on Day 11/11 - did not take it today due to illness. Patient has been having fever x 2 days with Tm of 102 with myalgias as well as watery diarrhea and nausea. He has also had cough and mild increase in dyspnea, mostly with exertion. He denies chest pain or urinary symptoms. Denies abdominal pain, back or flank pain. No additional complaints at this time. Patient did have Covid-19 in March 2022. He had a recent exposure last week while at a - several people in attendance tested POSITIVE for Covid-19. He is fully vaccinated and has received the bivalent booster as well. In the ER he is afebrile, HD stable, no respiratory complaints. Adequate oxygenation on room air. Patient had episode of watery diarrhea during my encounter. Did appear dyspneic upon return from the bathroom, maintained adequate saturations. ER Course: Zosyn 4.5gm NSS x 1L Allergies Allergy/AdvReac Type Severity Reaction Status Date / Time Iodinated Contrast Media AdvReac Intermediate "FEELING Verified 05/15/22 19:56 FUNNY" Home Medications Medication Instructions Recorded Confirmed Type ascorbic acid (vitamin C) 500 mg 500 mg PO QAM 08/04/18 05/15/22 History chewable tablet (Vitamin C) aspirin 81 mg tablet,delayed 81 mg PO QAM 08/04/18 05/15/22 History release cinnamon bark 500 mg capsule 2 cap PO QAM 08/04/18 05/15/22 History (Cinnamon) garlic 1,000 mg capsule 1,000 mg PO QAM 08/04/18 05/15/22 History glucosam 750 mg-chondroi 100 2 tab PO QAM 08/04/18 05/15/22 History mg-hyalur 1.65 mg-CF borate 108 mg tablet (Move Free BuyItRideIt) loratadine 10 mg tablet (Claritin) 10 mg PO QAM 08/04/18 05/15/22 History multivitamin 1 tab PO QAM 08/04/18 05/15/22 History omega-3 acid ethyl esters 1 gram 1 cap PO QAM 02/28/19 05/15/22 History capsule albuterol sulfate 90 mcg/actuation 1 inh inhalation QID PRN shortness 06/16/21 05/15/22 Rx aerosol inhaler of breath or wheezing #8.5 grams atorvastatin 40 mg tablet 40 mg PO PM #90 tabs 10/02/21 05/15/22 Rx clopidogrel 75 mg tablet 75 mg PO Q OTHER DAY #45 tabs 10/02/21 05/15/22 Rx escitalopram oxalate 10 mg tablet 10 mg PO QAM #90 tabs 10/02/21 05/15/22 Rx esomeprazole magnesium 40 mg 40 mg PO QAM #90 caps 10/02/21 05/15/22 Rx capsule,delayed release isosorbide mononitrate 30 mg 30 mg PO QAM #90 tabs 10/02/21 05/15/22 Rx tablet,extended release 24 hr metoprolol succinate 25 mg 25 mg PO QAM #90 tabs 10/02/21 05/15/22 Rx tablet,extended release 24 hr nitroglycerin 0.4 mg sublingual 0.4 mg sublingual UD PRN Chest 10/02/21 05/15/22 Rx tablet Pain #30 tabs fluticasone fur. 100 mcg-umeclid 1 inh inhalation DAILY #3 Inhalers 04/26/22 05/15/22 Rx 62.5 mcg-vilant 25 mcg inhalat.powder (Trelegy Ellipta) fluticasone propionate 50 2 spray intranasal DAILY 04/26/22 05/15/22 History mcg/actuation nasal spray,suspension amoxicillin 875 mg-potassium 1 tab PO BID 05/15/22 05/15/22 History clavulanate 125 mg tablet Past Med/Surg History Medical History Borderline diabetes CAD (coronary artery disease) of artery bypass graft Depression Esophageal ulcer without bleeding GERD (gastroesophageal reflux disease) Hyperlipidemia Hypertension Obesity Osteoarthritis Sleep apnea CPAP Transient ischemic attack (TIA) 10 YEARS AGO -no deficits, no neurologist Surgical History History of cardiac cath 2010 - [facility] - --> CABG - FOLLOWS W/ DR. RUBALCAVA 2016 - [facility] - NO STENTS/ANGIOPLASTY History of colonoscopy (2015) History of coronary artery bypass graft (2010) 2010 - [facility] - 3 VESSELS - FOLLOWS W/ DR. RUBALCAVA History of esophagogastroduodenoscopy (EGD) History of neck surgery benign lump removed off neck History of surgery LIPOMA EXCISION History of thumb surgery left thumb bone spur removal History of tooth extraction Family History Mother Family history of diabetes mellitus Myocardial infarction Sister Family history of diabetes mellitus Father Myocardial infarction Other Hypertension Kidney stones No family history of adverse response to anesthesia Denies family history of Ovarian cancer Prostate cancer Crohn's disease Breast cancer Lung cancer Colorectal cancer Stroke Social History Smoking Status: Never smoker Second Hand Exposure: No; Do You Dip or Chew Tobacco: No; Tobacco Cessation Education Requested by Patient: No Hx Alcohol Use: Yes Alcohol type: beer Hx Substance Use: No Preferred Language: Comoran Communication Ability: Effective Junior Underwriter Required: No Beliefs That Will Affect Care: Confucianism Confucianism Beliefs: Restorationism. 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 Other Information That Helps Us Care for You: No Feels Safe at Home: Yes Safety Concerns: Feels Safe At This Time Childhood Exposure to Second-Hand Smoke: Yes caffeine: No Dental Care, Regularly: Yes Physical Activity Frequency: Daily Seatbelt Use: always Sunscreen Use: No Assistive Devices: CPAP, Denture - Upper and Glasses Review of Systems Review of Systems: All systems reviewed & are unremarkable except as noted in HPI & below Physical Exam Physical Exam: General: patient resting comfortably, NAD,ill in appearance, AA&O x 4 Skin: warm, dry, intact, no rashes or lesions HEENT: NC/AT, PERRL, EOMI, anicteric sclera, conjunctiva without injection, external ear normal to inspection and nontender, nares patent, moist mucus membranes, dentition intact, no oropharyngeal lesions, neck supple, trachea midline, no LAD, no thyromegaly, no JVD Heart: +S1/S2, regular, no m/r/g Lungs: equal air entry bilaterally, no rales/rhonchi/wheezes Abd: +BS, soft, NT/ND, no masses/organomegaly/ascites Ext: warm, 2+ pulses in UE/LE bilaterally, no clubbing/cyanosis or edema Neuro: nonfocal, patient AA&O x 4, speech intact, no facial droop, moving all extremities on command with equal strength 5/5 Results & Data Results & Data ([facility]) Vital Signs (Past 12 Hours) Vital Signs Temp Pulse Pulse Resp BP BP Pulse Ox 05/15/22 22:05 22 185/84 H 95 05/15/22 21:10 21 131/67 05/15/22 20:30 83 27 H 93 05/15/22 20:31 89 96 05/15/22 20:16 85 26 H 153/66 H 93 05/15/22 19:11 36.7 C 86 20 135/73 93 O2 Del Method 05/15/22 22:05 Room Air 05/15/22 21:10 05/15/22 20:30 Room Air 05/15/22 20:31 Room Air 05/15/22 20:16 Room Air 05/15/22 19:11 Room Air Laboratory Results Laboratory Results WBC 18.14 K/ul (4.8-10.8) H 05/15/22 20:06 RBC 5.27 M/uL (4.63-6.08) 05/15/22 20:06 Hgb 15.6 g/dl (14.0-18.0) 05/15/22 20:06 Hct 46.7 % (40.1-51.0) 05/15/22 20:06 MCV 88.6 fL (80.0-100.0) 05/15/22 20:06 MCH 29.6 pg (25.0-34.0) 05/15/22 20:06 MCHC 33.4 g/dL (32.0-36.0) 05/15/22 20:06 RDW Std Deviation 43.8 fL (36.4-46.3) 05/15/22 20:06 RDW Coeff of Erika 13.4 % (11.5-14.5) 05/15/22 20:06 Plt Count 175 K/uL (130-400) 05/15/22 20:06 MPV 8.8 fL (9.4-12.4) L 05/15/22 20:06 Immature Gran % (Auto) 0.7 % 05/15/22 20:06 Neut % (Auto) 84.4 % 05/15/22 20:06 Lymph % (Auto) 4.6 % 05/15/22 20:06 Vermilion % (Auto) 9.8 % 05/15/22 20:06 Eos % (Auto) 0.3 % 05/15/22 20:06 Baso % (Auto) 0.2 % 05/15/22 20: Neut # (Auto) 15.31 K/uL (1.4-6.5) H 05/15/22 20:06 Lymph # (Auto) 0.83 K/uL (1.2-3.4) L 05/15/22 20:06 Vermilion # (Auto) 1.78 K/uL (0.24-0.82) H 05/15/22 20:06 Eos # (Auto) 0.06 K/uL (0-0.50) 05/15/22 20:06 Baso # (Auto) 0.04 K/uL (0-0.2) 05/15/22 20: Immature Gran # (Auto) 0.12 K/uL (0.00-0.02) H 05/15/22 20:06 Sodium 133 mmol/L (136-145) L 05/15/22 20:06 Potassium 4.1 mmol/L (3.5-5.1) 05/15/22 20:06 Chloride 99 mmol/L (98-107) 05/15/22 20:06 Carbon Dioxide 26 mmol/L (21-32) 05/15/22 20:06 Anion Gap 8 (3-11) 05/15/22 20:06 BUN 18 mg/dl (6-23) 05/15/22 20:06 Creatinine 1.10 mg/dl (0.6-1.4) 05/15/22 20:06 Est Cr Clr Drug Dosing 62.6 ml/min 05/15/22 20:06 Est GFR ( Amer) 74.7 ml/min 05/15/22 20:06 Est GFR (Non-Af Amer) 64.4 ml/min 05/15/22 20:06 BUN/Creatinine Ratio 16.4 (10-20) 05/15/22 20:06 Glucose 122 mg/dl (70-99(Fasting)) H 05/15/22 20:06 Lactate 1.5 mmol/L (0.4-2.0) 05/15/22 20:06 Calcium 8.8 mg/dl (8.5-10.1) 05/15/22 20:06 Magnesium 1.7 mg/dl (1.7-2.4) 05/15/22 20:06 Total Bilirubin 1.5 mg/dl (0.2-1.0) H 05/15/22 20:06 Direct Bilirubin 0.3 mg/dl (0-0.2) H 05/15/22 20:06 AST 18 U/L (13-39) 05/15/22 20:06 ALT 18 U/L (7-52) 05/15/22 20:06 Alkaline Phosphatase 76 U/L (34-104) 05/15/22 20:06 Troponin I High Sens 10.0 pg/ml (0-20) 05/15/22 20:06 Total Protein 6.8 gm/dl (6.0-8.3) 05/15/22 20:06 Albumin 4.2 gm/dl (3.4-5.0) 05/15/22 20:06 Procalcitonin 1.69 ng/ml (0-0.5) H 05/15/22 20:06 SARS-CoV-2 (PCR) POSITIVE (Negative) A* 05/15/22 19:36 Influenza Type A (PCR) Negative (Neg) 05/15/22 19:36 Influenza Type B (PCR) Negative (Neg) 05/15/22 19:36 RSV (RT-PCR) Negative (Neg) 05/15/22 19:36 Impressions Chest X-Ray 05/15/22 19:25 XR chest 1V portable CLINICAL HISTORY: Sepsis TECHNIQUE: Single frontal radiograph of the chest was obtained. Comparison: Comparison is made to chest radiographs 01/05/2021 FINDINGS: Median sternotomy wires are unchanged. Cardiomegaly is noted. The lungs are cl ear. No evidence of pleural effusion or pneumothorax. IMPRESSION: No acute chest disease. ACT 112: Negative or not required by law. Electronically signed by: Lamin Castañeda M.D. 05/15/2022 7:[address] Abdomen and Pelvis without contrast - Per STAT rad - nonobstructive 3mm calcific calculus in the lower for the left kidney. No hydronephrosis or ureterolithiasis is seen. The urinary bladder is partially distended and unremarkable. There is a 5 mm calculus in the deeper portion of a nondilated gallbladder. No pericholecystic inflammation or chiledocholithiasis is seen. The appendix is not clearly visualized. Bowel loops are nondilated. There are scattered gas fluid levels within transverse and left cokon with slight colonic wall thickening suggesting mild colitis and ileus. No obstruction, perforation or abscess is seen. The liver, pancreas, spleen and adrenal glands are unremarkable. The abdominal aorta is mildly calcified but nondilated. Mild degenerative changes throughout the spine. No acute fracture or subluxation. ECG Additional Comments: EKG with NSR at 86, normal axis, CW=396, QRS=78, GCg=944, TW abnormality in lateral leads PG Care Time/CCT Total # of Minutes Spent Total Time Spent with Patient: Total time spent is greater than 50% in coordination of care (as documented) at patient's floor/unit and/or counseling patient: Coding Level of Care Code 33624 Initial Inpt Care Lvl 3 Diagnoses Fever R50.9 Diarrhea R19.7 CAD (coronary artery disease) of artery bypass graft I25.810 Hypertension I10 Hyperlipidemia E78.5 GERD without esophagitis K21.9 Type 2 diabetes mellitus E11.9 Moderate obstructive sleep apnea G47.33
[2022-05-15] MEDS ORDERED: LACTATED RINGER'S 1,000 ML IV SCH (23:45)
[2022-05-15] MEDS ORDERED: NITROGLYCERIN SL 0.4 MG/TAB TAB SL PRN (23:45)
[2022-05-15] MEDS ORDERED: GLUCOSE 10 TAB/TUBE PO PRN (23:45)
[2022-05-15] MEDS ORDERED: ACETAMINOPHEN 325 MG TAB PO PRN (23:45)
[2022-05-15] MEDS ORDERED: GLUCOSE 40% GEL 15 GM TUBE PO PRN (23:45)
[2022-05-15] MEDS ORDERED: ONDANSETRON INJ 2 MG/ML 2 ML VIAL IV PRN (23:45)
[2022-05-15] MEDS ORDERED: GLUCAGON FOR INJ 1 MG VIAL SQ PRN (23:45)
[2022-05-15] MEDS ORDERED: ALBUTEROL HFA 8 GM INHALER INH PRN (23:45)
[2022-05-15] MEDS ORDERED: DEXTROSE 50% 50 ML SYRINGE IV PRN (23:45)
[2022-05-15] MEDS ORDERED: CARBOHYDRATES FOR HYPOGLYCEMIA PO PRN (23:45)
[2022-05-16] MEDS: MAGNESIUM SULFATE / D5W 1 GM/100 ML BAG IV SCH ×2 (00:39→03:02)
[2022-05-16] MEDS: RASPBERRY SYRUP 5 ML UDP PO SCH ×5 (00:40→23:06)
[2022-05-16] MEDS: VANCOMYCIN HCL 250 MG/5 ML SOLN PO SCH ×5 (00:40→23:06)
[2022-05-16 01:59] LABS: Appearance Urine Cloudy (Clear); Bacteria Urine Automated Negative (Negative); Bilirubin Urine Negative (Negative); Blood Urine 2+ (Negative); Cast Urine Automated 0 /lpf (0-5); Color Urine Yellow; Glucose Urine UA Negative (Negative); Ketones Urine Trace (Negative); Leukocyte Esterase Urine Negative (Negative); Nitrite Urine Negative (Negative); Protein Urine Trace (Negative); Specific Gravity Urine 1.031 (1.000-1.030); Urobilinogen Urine Negative (Negative)
[2022-05-16] MEDS: PIPERACILLIN/TAZOBACTAM 3.375 GM in DEXTROSE 5% 100 ML IV SCH ×3 (03:54→23:07)
[2022-05-16 05:58] LABS: Basophils # (auto) 0.04 K/uL (0-0.2); Basophils % (auto) 0.2 %; Eosinophils # (auto) 0.02 K/uL (0-0.50); Eosinophils % (auto) 0.1 %; Hemoglobin 15.5 g/dl (14.0-18.0); Immature Granulocytes # (auto) 0.15 K/uL (0.00-0.02); Immature Granulocytes % (auto) 0.9 %; Lymphocytes # (auto) 1.28 K/uL (1.2-3.4); Lymphocytes % (auto) 7.4 %; Mean Corpuscular Hemoglobin 30.3 pg (25.0-34.0); Mean Corpuscular Hgb Conc 34.4 g/dL (32.0-36.0); Mean Corpuscular Volume 87.9 fL (80.0-100.0); Mean Platelet Volume 8.6 fL (9.4-12.4); Monocytes % (auto) 7.5 %; Neutrophils # (auto) 14.61 K/uL (1.4-6.5); Neutrophils % (auto) 83.9 %; Platelet Count 166 K/uL (130-400); RDW Coefficient of Variation 13.4 % (11.5-14.5); RDW Standard Deviation 43.5 fL (36.4-46.3); Red Blood Count 5.12 M/uL (4.63-6.08)
[2022-05-16 06:19] LABS: BUN Creatinine Ratio 16.5 (10-20); Bilirubin Direct 0.2 mg/dl (0-0.2); Bilirubin,Total 1.2 mg/dl (0.2-1.0); Calcium 8.4 mg/dl (8.5-10.1); Creatinine Clr Calc Pharmacy 70.5 ml/min; Est GFR (African American) 86.9 ml/min; Potassium 3.5 mmol/L (3.5-5.1); Total Protein 6.6 gm/dl (6.0-8.3)
[2022-05-16] MEDS: ISOSORBIDE MONO EXTENDED REL 30 MG TABCR PO SCH (07:48)
[2022-05-16] MEDS: CLOPIDOGREL BISULFATE 75 MG TAB PO SCH (07:48)
[2022-05-16] MEDS: LORATADINE 10 MG TAB PO SCH (07:48)
[2022-05-16] MEDS: METOPROLOL SUCC 25MG EXT REL TAB PO SCH (07:48)
[2022-05-16] MEDS: FAMOTIDINE 40 MG TABLET PO SCH (07:48)
[2022-05-16] MEDS: ASPIRIN 81 MG ECTAB PO SCH (07:48)
[2022-05-16] MEDS: UMECLIDINIUM/VILANTEROL 62.5/25MCG 7 PUFFS/INHALER INH SCH (07:49)
[2022-05-16] MEDS: ESCITALOPRAM OXALATE 10 MG TAB PO SCH (07:49)
[2022-05-16] MEDS: FLUTICASONE FUROATE 100MCG 14 PUFFS/INHALER INH SCH (07:50)
[2022-05-16] MEDS: FLUTICASONE PROPIONATE NA SPR 16 GM BTL SCH (07:50)
--- NOTE | 2022-05-16 08:21 | CT Scan Report ---
CT SCAN OF THE ABDOMEN AND PELVIS WITHOUT IV CONTRAST CLINICAL HISTORY: Vomiting. Epigastric abdominal pain. COMPARISON STUDY: Abdominal CT dated 06/16/2012. TECHNIQUE: CT scan of the abdomen and pelvis is performed from the lung bases to the proximal femora. Images are reviewed in the axial, sagittal, and coronal planes. IV contrast was not administered for this examination. Note that the examination was performed in the significantly suboptimal fashion wi thout oral and IV contrast. A dose lowering technique was utilized adhering to the principles of JOSE LUIS Thomas. CT DOSE: 455.12 mGy.cm FINDINGS: Lung bases: The patient is status post midline sternotomy. The heart is normal in size and without pe ricardial effusion. The coronary arteries are densely calcified. There are scattered calcified granul omas. A 5 mm left lower lobe pulmonary nodule seen on image #16 is unchanged dating back to 2011 abdo ana significance. The lung bases are otherwise clear noting bibasilar scarring/atelectasis. There i s a small hiatal hernia. Liver: The unenhanced liver is normal in size, contour, and attenuation. There is no intrahepatic srikanth iary ductal dilatation. Gallbladder: There are small calcified gallstones without CT evidence of acute cholecystitis. Spleen: Normal in size and attenuation. Pancreas: The unenhanced pancreas is moderately atrophic and grossly unremarkable. Adrenal glands: Unremarkable. Kidneys: The unenhanced kidneys demonstrate mild cortical atrophy and are without hydronephrosis. The re are at least 2 nonobstructing left renal calculi which measure up to 4 mm. There is a punctate non obstructing right renal calculus. There is no evidence of contour deforming renal mass lesion. Abdominal vasculature: The abdominal aorta is normal in course and caliber noting advanced atheroscle rotic calcification. Bowel: There is no bowel obstruction. There is wall thickening mild edema seen throughout the colon w ith faint pericolonic infiltration. The appearance is typical for a nonspecific colitis. The appendix is well-visualized and normal. Peritoneum: There is no intraperitoneal free air or abdominal ascites. Lymphadenopathy: None. Pelvic viscera: The bladder, prostate, and seminal vesicles are normal as visualized. There is a fat- containing left inguinal hernia. Skeletal structures: The skeletal structures are osteopenic. There is mild to moderate lumbosacral sp ondylosis. There are mild chronic superior endplate compression deformities of T9 and T11. Degenerati ve change is noted in the sacroiliac joints and pubic symphysis. No lytic or blastic lesions are seen . IMPRESSION: 1. There is evidence of a nonspecific pancolitis. Clinical correlation will be required. 2. Cholelithiasis. 3. Bilateral nephrolithiasis. 4. Additional findings as above. ACT 112: Negative or not required by law. Electronically signed by: Fransico Alegria M.D. 05/16/2022 8:19 AM
[2022-05-16 08:57] LABS: Cdiff Antigen Positive
[2022-05-16] MEDS ORDERED: NON-FORMULARY MEDICATION (Fluticasone-Umeclidin-Vilanter [Trelegy Ellipta] 100-62.5-25 mcg INH SCH (09:00)
[2022-05-16 09:01] LABS: Cdiff Toxin A+B Positive Cdiff Toxin (Negative)
[2022-05-16] MEDS: LACTATED RINGER'S 1,000 ML IV SCH ×2 (09:36→17:47)
--- NOTE | 2022-05-16 12:51 | Electrocardiogram Report ---
Test Reason : Blood Pressure : / mmHG Vent. Rate : 086 BPM Atrial Rate : 086 BPM P-R Int : 176 ms QRS Dur : 078 ms QT Int : 326 ms P-R-T Axes : 037 067 130 degrees QTc Int : 390 ms Normal sinus rhythm Septal infarct (cited on or before 15-MAY-2022) T wave abnormality, consider lateral ischemia Abnormal ECG When compared with ECG of 21-DEC-2016 16:12, Nonspecific T wave abnormality now evident in Inferior leads Inverted T waves have replaced nonspecific T wave abnormality in Lateral leads Confirmed by Wm Whitfield ([id number]) on 05/16/2022 12:51:00 PM Referred By: REFERRED SELF Confirmed By:Wm Whitfield
--- NOTE | 2022-05-16 13:37 | Hospitalist Progress Note ---
Date of Service May 16, 2022 Assessment & Plan (1) Clostridium difficile colitis: Plan: 76yo male with history of CAD, HTN, HLP presents with fever x 2 days, Tm of 102 as well as watery diarrhea. Patient was on Augmentin x 5 days for sinus congestion. Recent Covid-19 infection in March but had exposure last week again. He is fully vaccinated. With leukocytosis of 18.14 with neutrophil predominance. Procalcitonin elevated at 1.69. CT of the abdomen/pel with - nonobstructive renal stone, 5mm gall stone as well as mild colitis findings. C. diff now positive for gene and toxin Continues to have fevers, leukocytosis but improved to 17k. Having 6-8 watery stools so far today, no abd pain, no renal failure -continue po Vanco 250mg po qid x 10 day course -will give more IVFs with 2L LR at 80 mL/hr -follow CBC, BMP, Mag, Phos in AM and replete lytes as needed-replace magnesium IV today -could add cholestyramine for diarrhea if not improving -ok for diet (2) Sepsis: Plan: With fever, leukocytosis, and C. diff colitis as etiology. DOubt new COVID infection-first tested positive on 04/12 with home test, has residual mild cough, no hypoxia, no PNA on CXR. Doubt gallstone is causing fever - patient with no abdominal pain or RUQ tenderness. He does have mild elevation of Dbili and Tbili with normal Alkaline phosphatase RSV and Flu negative UA with RBCs but contaminated, no infection -continue tx of C. diff as above -continue IVFs -APAP prn fever -follow BCxs-NGTD (3) CAD (coronary artery disease) of artery bypass graft: Plan: Patient with history of CAD s/p CABG x 3V in 2010. He had catheterization in 2017 which revealed normal LV function and patent grafts. He denies chest pain -Continue ASA -Continue Plavix every other day -Continue Atorvastatin -Continue Metoprolol -Continue Isosorbide mononitrate -Nitro as needed -Pepcid 40mg daily for GERD - consider DC Nexium given associated increased risk of C. diff (4) Hyponatremia: Plan: Na+ dropped further to 131 today likely from dehydration from severe diarrhea continue IVF replacement follow BMP in AM (5) Acute sinusitis: Plan: continue to finish out a 7 day course of abx for acute sinusitis with IV ZOsyn for now-last date will be 05/17 has chronic sinus HAs for last year (6) Hypertension: Plan: Blood pressure mildly elevated -Continue Isosorbide, Metoprolol (7) Hyperlipidemia: Plan: Chronic -Continue Atorvastatin (8) GERD without esophagitis: Plan: Chronic. Well controlled. Patient on Nexium outpatient -Pepcid 40mg po daily (9) Type 2 diabetes mellitus: Plan: Diet controlled -Fingersticks (10) Moderate obstructive sleep apnea: Plan: Chronic. Patient is compliant with CPAP. -Continue CPAP qHS (11) COVID: Plan: as above, likely not new infection but since no "proof" of home test from 04/12/22, will keep in precautions -no treatment for this Plan DVT proph-add on Lovenox 40mg daily Dispo-continued stay. Updated Rosi [place] (safety specialist) and will also call his with update Admission and Anticipated Discharge Date Admission Date: May 15, 2022 Subjective Pt had a fever this AM but now is feeling much better overall. No abd pain, no further nausea. Had 6-8 loose stools so far today. No CP, SOB. Does have a mild persistent cough since he had COVID 1 month ago but not worse. has chronic sinus headaches for the last year. Review of Systems Review of Systems: All systems reviewed & are unremarkable except as noted in HPI & below Physical Exam Constitutional: WD/WN, vitals as above ENMT: external ear and nose normal, oropharynx normal Neck: trachea midline, no thyromegaly Respiratory: normal respiratory effort, lungs clear to auscultation Cardiovascular: RRR, no murmur, no edema Chest (Breasts): Chest: normal inspection of chest Gastrointestinal (Abdomen): normal bowel sounds, soft, nontender, no hepatosp lenomegaly (except mild LLQ TTP w/o guarding or rebound) Musculoskeletal: Extremities: extremities normal to inspection; no cyanosis and no clubbing Skin: no rashes, warm and dry Neurologic: moves all extremities and awake; no focal motor deficits Psychiatric: A+Ox3, euthymic affect Lymphatic: no lymphedema Results & Data Results & Data ([facility]) Vital Signs (Past 12 Hours) Vital Signs Temp Pulse Resp BP Pulse Ox O2 Del Method 05/16/22 11:12 36.8 C 05/16/22 07:46 38.0 C H 88 18 155/77 H 93 Room Air Laboratory Results 05/16/22 05/16/22 05/16/22 Range/Units 12:21 07:40 05:35 WBC (4.8-10.8) K/ul RBC (4.63-6.08) M/uL Hgb (14.0-18.0) g/dl Hct (40.1-51.0) % MCV (80.0-100.0) fL MCH (25.0-34.0) pg MCHC (32.0-36.0) g/dL RDW Std Deviation (36.4-46.3) fL RDW Coeff of Erika (11.5-14.5) % Plt Count (130-400) K/uL MPV (9.4-12.4) fL Immature Gran % (Auto) % Neut % (Auto) % Lymph % (Auto) % [place] % (Auto) % Eos % (Auto) % Baso % (Auto) % Neut # (Auto) (1.4-6.5) K/uL Lymph # (Auto) (1.2-3.4) K/uL [place] # (Auto) (0.24-0.82) K/uL Eos # (Auto) (0-0.50) K/uL Baso # (Auto) (0-0.2) K/uL Immature Gran # (Auto) (0.00-0.02) K/uL Sodium 131 L (136-145) mmol/L Potassium 3.5 (3.5-5.1) mmol/L Chloride 100 (98-107) mmol/L Carbon Dioxide 23 (21-32) mmol/L Anion Gap 8 (3-11) BUN 16 (6-23) mg/dl Creatinine 0.97 (0.6-1.4) mg/dl Est Cr Clr Drug Dosing 70.5 ml/min Est GFR ( Amer) 86.9 ml/min Est GFR (Non-Af Amer) 75.0 ml/min BUN/Creatinine Ratio 16.5 (10-20) Glucose 125 H (70-99(Fasting)) mg/dl POC Glucose 101 H 132 H (70-99) mg/dl Lactate (0.4-2.0) mmol/L Calcium 8.4 L (8.5-10.1) mg/dl Magnesium (1.7-2.4) mg/dl Total Bilirubin 1.2 H (0.2-1.0) mg/dl Direct Bilirubin 0.2 (0-0.2) mg/dl AST 17 (13-39) U/L ALT 16 (7-52) U/L Alkaline Phosphatase 71 (34-104) U/L Troponin I High Sens (0-20) pg/ml Total Protein 6.6 (6.0-8.3) gm/dl Albumin 4.0 (3.4-5.0) gm/dl Procalcitonin (0-0.5) ng/ml Urine Color Urine Appearance (Clear) Urine pH (4.5-7.5) Ur Specific [place] (1.000-1.030) Urine Protein (Negative) Urine Glucose (UA) (Negative) Urine Ketones (Negative) Urine Blood (Negative) Urine Nitrite (Negative) Urine Bilirubin (Negative) Urine Urobilinogen (Negative) Ur Leukocyte Esterase (Negative) Urine WBC (Auto) (0-5) /hpf Urine RBC (Auto) (0-4) /hpf U Hyaline Cast (Auto) (0-5) /lpf U Epithel Cells (Auto) (0-5) /lpf Urine Bacteria (Auto) (Negative) Stl C. diff Tox B Gene (Neg) Stl C.difficile Tox A&B (Negative) SARS-CoV-2 (PCR) (Negative) Hepatitis C Ab (EIA) Hep C Ab Signal/Cutoff Influenza Type A (PCR) (Neg) Influenza Type B (PCR) (Neg) RSV (RT-PCR) (Neg) 05/16/22 05/16/22 05/16/22 Range/Units 05:35 05:35 05:30 WBC 17.40 H (4.8-10.8) K/ul RBC 5.12 (4.63-6.08) M/uL Hgb 15.5 (14.0-18.0) g/dl Hct 45.0 (40.1-51.0) % MCV 87.9 (80.0-100.0) fL MCH 30.3 (25.0-34.0) pg MCHC 34.4 (32.0-36.0) g/dL RDW Std Deviation 43.5 (36.4-46.3) fL RDW Coeff of Erika 13.4 (11.5-14.5) % Plt Count 166 (130-400) K/uL MPV 8.6 L (9.4-12.4) fL Immature Gran % (Auto) 0.9 % Neut % (Auto) 83.9 % Lymph % (Auto) 7.4 % [place] % (Auto) 7.5 % Eos % (Auto) 0.1 % Baso % (Auto) 0.2 % Neut # (Auto) 14.61 H (1.4-6.5) K/uL Lymph # (Auto) 1.28 (1.2-3.4) K/uL [place] # (Auto) 1.30 H (0.24-0.82) K/uL Eos # (Auto) 0.02 (0-0.50) K/uL Baso # (Auto) 0.04 (0-0.2) K/uL Immature Gran # (Auto) 0.15 H (0.00-0.02) K/uL Sodium (136-145) mmol/L Potassium (3.5-5.1) mmol/L Chloride (98-107) mmol/L Carbon Dioxide (21-32) mmol/L Anion Gap (3-11) BUN (6-23) mg/dl Creatinine (0.6-1.4) mg/dl Est Cr Clr Drug Dosing ml/min Est GFR ( Amer) ml/min Est GFR (Non-Af Amer) ml/min BUN/Creatinine Ratio (10-20) Glucose (70-99(Fasting)) mg/dl POC Glucose (70-99) mg/dl Lactate (0.4-2.0) mmol/L Calcium (8.5-10.1) mg/dl Magnesium (1.7-2.4) mg/dl Total Bilirubin (0.2-1.0) mg/dl Direct Bilirubin (0-0.2) mg/dl AST (13-39) U/L ALT (7-52) U/L Alkaline Phosphatase (34-104) U/L Troponin I High Sens (0-20) pg/ml Total Protein (6.0-8.3) gm/dl Albumin (3.4-5.0) gm/dl Procalcitonin (0-0.5) ng/ml Urine Color Urine Appearance (Clear) Urine pH (4.5-7.5) Ur Specific [place] (1.000-1.030) Urine Protein (Negative) Urine Glucose (UA) (Negative) Urine Ketones (Negative) Urine Blood (Negative) Urine Nitrite (Negative) Urine Bilirubin (Negative) Urine Urobilinogen (Negative) Ur Leukocyte Esterase (Negative) Urine WBC (Auto) (0-5) /hpf Urine RBC (Auto) (0-4) /hpf U Hyaline Cast (Auto) (0-5) /lpf U Epithel Cells (Auto) (0-5) /lpf Urine Bacteria (Auto) (Negative) Stl C. diff Tox B Gene Positive Cdiff Gene H (Neg) Stl C.difficile Tox A&B Positive Cdiff Toxin A* (Negative) SARS-CoV-2 (PCR) (Negative) Hepatitis C Ab (EIA) Pending Hep C Ab Signal/Cutoff Pending Influenza Type A (PCR) (Neg) Influenza Type B (PCR) (Neg) RSV (RT-PCR) (Neg) 05/16/22 05/15/22 05/15/22 Range/Units 00:45 20:06 20:06 WBC (4.8-10.8) K/ul RBC (4.63-6.08) M/uL Hgb (14.0-18.0) g/dl Hct (40.1-51.0) % MCV (80.0-100.0) fL MCH (25.0-34.0) pg MCHC (32.0-36.0) g/dL RDW Std Deviation (36.4-46.3) fL RDW Coeff of Erika (11.5-14.5) % Plt Count (130-400) K/uL MPV (9.4-12.4) fL Immature Gran % (Auto) % Neut % (Auto) % Lymph % (Auto) % [place] % (Auto) % Eos % (Auto) % Baso % (Auto) % Neut # (Auto) (1.4-6.5) K/uL Lymph # (Auto) (1.2-3.4) K/uL [place] # (Auto) (0.24-0.82) K/uL Eos # (Auto) (0-0.50) K/uL Baso # (Auto) (0-0.2) K/uL Immature Gran # (Auto) (0.00-0.02) K/uL Sodium (136-145) mmol/L Potassium (3.5-5.1) mmol/L Chloride (98-107) mmol/L Carbon Dioxide (21-32) mmol/L Anion Gap (3-11) BUN (6-23) mg/dl Creatinine (0.6-1.4) mg/dl Est Cr Clr Drug Dosing ml/min Est GFR ( Amer) ml/min Est GFR (Non-Af Amer) ml/min BUN/Creatinine Ratio (10-20) Glucose (70-99(Fasting)) mg/dl POC Glucose (70-99) mg/dl Lactate 1.5 (0.4-2.0) mmol/L Calcium (8.5-10.1) mg/dl Magnesium (1.7-2.4) mg/dl Total Bilirubin (0.2-1.0) mg/dl Direct Bilirubin (0-0.2) mg/dl AST (13-39) U/L ALT (7-52) U/L Alkaline Phosphatase (34-104) U/L Troponin I High Sens (0-20) pg/ml Total Protein (6.0-8.3) gm/dl Albumin (3.4-5.0) gm/dl Procalcitonin 1.69 H (0-0.5) ng/ml Urine Color Yellow Urine Appearance Cloudy A (Clear) Urine pH 5.0 (4.5-7.5) Ur Specific [place] 1.031 H (1.000-1.030) Urine Protein Trace H (Negative) Urine Glucose (UA) Negative (Negative) Urine Ketones Trace H (Negative) Urine Blood 2+ H (Negative) Urine Nitrite Negative (Negative) Urine Bilirubin Negative (Negative) Urine Urobilinogen Negative (Negative) Ur Leukocyte Esterase Negative (Negative) Urine WBC (Auto) 1-5 (0-5) /hpf Urine RBC (Auto) 5-10 H (0-4) /hpf U Hyaline Cast (Auto) 0 (0-5) /lpf U Epithel Cells (Auto) 5-10 H (0-5) /lpf Urine Bacteria (Auto) Negative (Negative) Stl C. diff Tox B Gene (Neg) Stl C.difficile Tox A&B (Negative) SARS-CoV-2 (PCR) (Negative) Hepatitis C Ab (EIA) Hep C Ab Signal/Cutoff Influenza Type A (PCR) (Neg) Influenza Type B (PCR) (Neg) RSV (RT-PCR) (Neg) 05/15/22 05/15/22 05/15/22 Range/Units 20:06 20:06 19:36 WBC 18.14 H (4.8-10.8) K/ul RBC 5.27 (4.63-6.08) M/uL Hgb 15.6 (14.0-18.0) g/dl Hct 46.7 (40.1-51.0) % MCV 88.6 (80.0-100.0) fL MCH 29.6 (25.0-34.0) pg MCHC 33.4 (32.0-36.0) g/dL RDW Std Deviation 43.8 (36.4-46.3) fL RDW Coeff of Erika 13.4 (11.5-14.5) % Plt Count 175 (130-400) K/uL MPV 8.8 L (9.4-12.4) fL Immature Gran % (Auto) 0.7 % Neut % (Auto) 84.4 % Lymph % (Auto) 4.6 % [place] % (Auto) 9.8 % Eos % (Auto) 0.3 % Baso % (Auto) 0.2 % Neut # (Auto) 15.31 H (1.4-6.5) K/uL Lymph # (Auto) 0.83 L (1.2-3.4) K/uL [place] # (Auto) 1.78 H (0.24-0.82) K/uL Eos # (Auto) 0.06 (0-0.50) K/uL Baso # (Auto) 0.04 (0-0.2) K/uL Immature Gran # (Auto) 0.12 H (0.00-0.02) K/uL Sodium 133 L (136-145) mmol/L Potassium 4.1 (3.5-5.1) mmol/L Chloride 99 (98-107) mmol/L Carbon Dioxide 26 (21-32) mmol/L Anion Gap 8 (3-11) BUN 18 (6-23) mg/dl Creatinine 1.10 (0.6-1.4) mg/dl Est Cr Clr Drug Dosing 62.6 ml/min Est GFR ( Amer) 74.7 ml/min Est GFR (Non-Af Amer) 64.4 ml/min BUN/Creatinine Ratio 16.4 (10-20) Glucose 122 H (70-99(Fasting)) mg/dl POC Glucose (70-99) mg/dl Lactate (0.4-2.0) mmol/L Calcium 8.8 (8.5-10.1) mg/dl Magnesium 1.7 (1.7-2.4) mg/dl Total Bilirubin 1.5 H (0.2-1.0) mg/dl Direct Bilirubin 0.3 H (0-0.2) mg/dl AST 18 (13-39) U/L ALT 18 (7-52) U/L Alkaline Phosphatase 76 (34-104) U/L Troponin I High Sens 10.0 (0-20) pg/ml Total Protein 6.8 (6.0-8.3) gm/dl Albumin 4.2 (3.4-5.0) gm/dl Procalcitonin (0-0.5) ng/ml Urine Color Urine Appearance (Clear) Urine pH (4.5-7.5) Ur Specific [place] (1.000-1.030) Urine Protein (Negative) Urine Glucose (UA) (Negative) Urine Ketones (Negative) Urine Blood (Negative) Urine Nitrite (Negative) Urine Bilirubin (Negative) Urine Urobilinogen (Negative) Ur Leukocyte Esterase (Negative) Urine WBC (Auto) (0-5) /hpf Urine RBC (Auto) (0-4) /hpf U Hyaline Cast (Auto) (0-5) /lpf U Epithel Cells (Auto) (0-5) /lpf Urine Bacteria (Auto) (Negative) Stl C. diff Tox B Gene (Neg) Stl C.difficile Tox A&B (Negative) SARS-CoV-2 (PCR) POSITIVE A* (Negative) Hepatitis C Ab (EIA) Hep C Ab Signal/Cutoff Influenza Type A (PCR) Negative (Neg) Influenza Type B (PCR) Negative (Neg) RSV (RT-PCR) Negative (Neg) PG Care Time/CCT Total # of Minutes Spent Total Time Spent with Patient: Total time spent is greater than 50% in coordination of care (as documented) at patient's floor/unit and/or counseling patient: Coding Level of Care Code 10957 Subseq Hosp Care Lvl 3 Diagnoses Clostridium difficile colitis A04.72 Sepsis A41.9 CAD (coronary artery disease) of artery bypass graft I25.810 Hyponatremia E87.1 Acute sinusitis J01.90 Hypertension I10 Hyperlipidemia E78.5 GERD without esophagitis K21.9 Type 2 diabetes mellitus E11.9 Moderate obstructive sleep apnea G47.33 COVID U07.1
[2022-05-16] MEDS: ENOXAPARIN INJ 40 MG/0.4 ML SYR SQ SCH (16:35)
[2022-05-16] MEDS: ATORVASTATIN 40 MG TAB PO SCH (23:06)
[2022-05-17] MEDS ORDERED: Nursing to Pharmacy Communication SCH (02:15)
[2022-05-17] MEDS: VANCOMYCIN HCL 250 MG/5 ML SOLN PO SCH ×3 (05:54→17:21)
[2022-05-17] MEDS: RASPBERRY SYRUP 5 ML UDP PO SCH ×3 (05:54→17:20)
[2022-05-17] MEDS: PIPERACILLIN/TAZOBACTAM 3.375 GM in DEXTROSE 5% 100 ML IV SCH ×3 (05:56→22:32)
[2022-05-17] MEDS: FAMOTIDINE 40 MG TABLET PO SCH (07:26)
[2022-05-17] MEDS: UMECLIDINIUM/VILANTEROL 62.5/25MCG 7 PUFFS/INHALER INH SCH (07:26)
[2022-05-17] MEDS: ASPIRIN 81 MG ECTAB PO SCH (07:26)
[2022-05-17] MEDS: METOPROLOL SUCC 25MG EXT REL TAB PO SCH (07:26)
[2022-05-17] MEDS: FLUTICASONE PROPIONATE NA SPR 16 GM BTL SCH (07:26)
[2022-05-17] MEDS: LORATADINE 10 MG TAB PO SCH (07:26)
[2022-05-17] MEDS: ISOSORBIDE MONO EXTENDED REL 30 MG TABCR PO SCH (07:26)
[2022-05-17] MEDS: FLUTICASONE FUROATE 100MCG 14 PUFFS/INHALER INH SCH (07:26)
[2022-05-17] MEDS: ESCITALOPRAM OXALATE 10 MG TAB PO SCH (07:26)
[2022-05-17 07:27] LABS: Basophils # (auto) 0.04 K/uL (0-0.2); Basophils % (auto) 0.4 %; Eosinophils # (auto) 0.22 K/uL (0-0.50); Eosinophils % (auto) 2.5 %; Hematocrit (blood only) 40.5 % (40.1-51.0); Hemoglobin 13.7 g/dl (14.0-18.0); Immature Granulocytes # (auto) 0.03 K/uL (0.00-0.02); Immature Granulocytes % (auto) 0.3 %; Lymphocytes # (auto) 1.22 K/uL (1.2-3.4); Lymphocytes % (auto) 13.7 %; Mean Corpuscular Hemoglobin 29.5 pg (25.0-34.0); Mean Corpuscular Hgb Conc 33.8 g/dL (32.0-36.0); Mean Corpuscular Volume 87.3 fL (80.0-100.0); Mean Platelet Volume 8.9 fL (9.4-12.4); Monocytes # (auto) 1.17 K/uL (0.24-0.82); Monocytes % (auto) 13.1 %; Neutrophils # (auto) 6.23 K/uL (1.4-6.5); Platelet Count 143 K/uL (130-400); RDW Coefficient of Variation 13.7 % (11.5-14.5); RDW Standard Deviation 43.8 fL (36.4-46.3); Red Blood Count 4.64 M/uL (4.63-6.08); White Blood Count 8.91 K/ul (4.8-10.8)
[2022-05-17 07:58] LABS: BUN Creatinine Ratio 16.1 (10-20); Calcium 7.9 mg/dl (8.5-10.1); Creatinine Clr Calc Pharmacy 73.5 ml/min; Est GFR (African American) 91.5 ml/min; Est GFR (Non-African American) 78.9 ml/min; Magnesium 2.1 mg/dl (1.7-2.4); Potassium 3.8 mmol/L (3.5-5.1)
[2022-05-17] MEDS: POT PHOSPHATE MONOBASIC W/ SOD TAB PO SCH ×3 (14:25→19:45)
--- NOTE | 2022-05-17 15:31 | Hospitalist Progress Note ---
Date of Service May 17, 2022 Assessment & Plan (1) Clostridium difficile colitis: Plan: 76yo male with history of CAD, HTN, HLP presents with fever x 2 days, Tm of 102 as well as watery diarrhea. Patient was on Augmentin x 5 days for sinus congestion. Recent Covid-19 infection in March but had exposure last week again. He is fully vaccinated. With leukocytosis of 18.14 with neutrophil predominance. Procalcitonin elevated at 1.69. CT of the abdomen/pel with - nonobstructive renal stone, 5mm gall stone as well as mild colitis findings. C. diff now positive for gene and toxin fevers, leukocytosis now resolved still having 10 watery stools so far today, no abd pain, no renal failure -continue po Vanco 250mg po qid x 10 day course -will give 1 more liter IVFs with LR at 80 mL/hr -start cholestyramine 4 gm po bid for diarrhea, would avoid antimotility agents eg imodium -follow CBC, BMP, Mag, Phos in AM and replete lytes as needed-replace with K- phos tabs qid x 1 day (2) Sepsis: Plan: With fever, leukocytosis, and C. diff colitis as etiology.Now resolved DOubt new COVID infection-first tested positive on 04/12 with home test, has residual mild cough, no hypoxia, no PNA on CXR. Doubt gallstone is causing fever - patient with no abdominal pain or RUQ tenderness. He does have mild elevation of Dbili and Tbili with normal Alkaline phosphatase RSV and Flu negative UA with RBCs but contaminated, no infection -continue tx of C. diff as above -continue IVFs -APAP prn fever -follow BCxs-NGTD (3) CAD (coronary artery disease) of artery bypass graft: Plan: Patient with history of CAD s/p CABG x 3V in 2010. He had catheterization in 2017 which revealed normal LV function and patent grafts. He denies chest pain -Continue ASA -Continue Plavix every other day -Continue Atorvastatin -Continue Metoprolol -Continue Isosorbide mononitrate -Nitro as needed -Pepcid 40mg daily for GERD - consider DC Nexium given associated increased risk of C. diff (4) Hyponatremia: Plan: Na+ dropped to 131 likely from dehydration from severe diarrhea now improved with IVF hydration to 135 continue IVF replacement today for severe diarrhea follow BMP in AM (5) Acute sinusitis: Plan: continue to finish out a 7 day course of abx for acute sinusitis with IV ZOsyn (received 5 days of po Augmentin prior to admission) for now-last date will be 05/17 has chronic sinus HAs for last year (6) Hypertension: Plan: Blood pressure normal -Continue Isosorbide, Metoprolol (7) Hyperlipidemia: Plan: Chronic -Continue Atorvastatin (8) GERD without esophagitis: Plan: Chronic. Well controlled. Patient on Nexium outpatient -Pepcid 40mg po daily (9) Type 2 diabetes mellitus: Plan: Diet controlled -Fingersticks (10) Moderate obstructive sleep apnea: Plan: Chronic. Patient is compliant with CPAP. -Continue CPAP qHS (11) COVID: Plan: as above, likely not new infection but since no "proof" of home test from 04/12/22, will keep in precautions -no treatment for this Plan DVT proph- Lovenox 40mg daily Dispo-continued stay. Updated by phone Admission and Anticipated Discharge Date Admission Date: May 15, 2022 Subjective Pt feeling better today. Still has had about 10 loose stools so far today. No abd pain. No CP, SOB. Review of Systems Review of Systems: All systems reviewed & are unremarkable except as noted in HPI & below Physical Exam Constitutional: WD/WN, vitals as above Eyes: + anicteric sclerae Neck: trachea midline, no thyromegaly Respiratory: normal respiratory effort, lungs clear to auscultation Cardiovascular: RRR, no murmur, no edema Chest (Breasts): Chest: normal inspection of chest Gastrointestinal (Abdomen): normal bowel sounds, soft, nontender, no hepatosplenomegaly Musculoskeletal: Extremities: extremities normal to inspection; no cyanosis and no clubbing Skin: no rashes, warm and dry Neurologic: moves all extremities and awake; no focal motor deficits Psychiatric: A+Ox3, euthymic affect Lymphatic: no lymphedema Results & Data Results & Data ([facility]) Vital Signs (Past 12 Hours) Vital Signs Temp Pulse Resp BP Pulse Ox O2 Del Method 05/17/22 14:21 36.7 C 65 16 139/74 96 Room Air 05/17/22 07:22 36.4 C L 71 16 157/82 H 96 Room Air Laboratory Results 05/17/22 05/17/2205/17/22 Range/Units 12:21 07:24 06:42 WBC (4.8-10.8) K/ul RBC (4.63-6.08) M/uL Hgb (14.0-18.0) g/dl Hct (40.1-51.0) % MCV (80.0-100.0) fL MCH (25.0-34.0) pg MCHC (32.0-36.0) g/dL RDW Std Deviation (36.4-46.3) fL RDW Coeff of Erika (11.5-14.5) % Plt Count (130-400) K/uL MPV (9.4-12.4) fL Immature Gran % (Auto) % Neut % (Auto) % Lymph % (Auto) % [place] % (Auto) % Eos % (Auto) % Baso % (Auto) % Neut # (Auto) (1.4-6.5) K/uL Lymph # (Auto) (1.2-3.4) K/uL [place] # (Auto) (0.24-0.82) K/uL Eos # (Auto) (0-0.50) K/uL Baso # (Auto) (0-0.2) K/uL Immature Gran # (Auto) (0.00-0.02) K/uL Sodium 135 L (136-145) mmol/L Potassium 3.8 (3.5-5.1) mmol/L Chloride 105 (98-107) mmol/L Carbon Dioxide 26 (21-32) mmol/L Anion Gap 4 (3-11) BUN 15 (6-23) mg/dl Creatinine 0.93 (0.6-1.4) mg/dl Est Cr Clr Drug Dosing 73.5 ml/min Est GFR ( Amer) 91.5 ml/min Est GFR (Non-Af Amer) 78.9 ml/min BUN/Creatinine Ratio 16.1 (10-20) Glucose 100 H (70-99(Fasting)) mg/dl POC Glucose 102 H 92 (70-99) mg/dl Calcium 7.9 L (8.5-10.1) mg/dl Phosphorus 2.0 L (2.5-4.9) mg/dl Magnesium 2.1 (1.7-2.4) mg/dl Hepatitis C Ab (EIA) (NON-REACTIVE) Hep C Ab Signal/Cutoff (<1.00) 05/17/22 05/16/22 05/16/22 Range/Units 06:42 21:36 17:21 WBC 8.91 (4.8-10.8) K/ul RBC 4.64 (4.63-6.08) M/uL Hgb 13.7 L (14.0-18.0) g/dl Hct 40.5 (40.1-51.0) % MCV 87.3 (80.0-100.0) fL MCH 29.5 (25.0-34.0) pg MCHC 33.8 (32.0-36.0) g/dL RDW Std Deviation 43.8 (36.4-46.3) fL RDW Coeff of Erika 13.7 (11.5-14.5) % Plt Count 143 (130-400) K/uL MPV 8.9 L (9.4-12.4) fL Immature Gran % (Auto) 0.3 % Neut % (Auto) 70.0 % Lymph % (Auto) 13.7 % [place] % (Auto) 13.1 % Eos % (Auto) 2.5 % Baso % (Auto) 0.4 % Neut # (Auto) 6.23 (1.4-6.5) K/uL Lymph # (Auto) 1.22 (1.2-3.4) K/uL [place] # (Auto) 1.17 H (0.24-0.82) K/uL Eos # (Auto) 0.22 (0-0.50) K/uL Baso # (Auto) 0.04 (0-0.2) K/uL Immature Gran # (Auto) 0.03 H (0.00-0.02) K/uL Sodium (136-145) mmol/L Potassium (3.5-5.1) mmol/L Chloride (98-107) mmol/L Carbon Dioxide (21-32) mmol/L Anion Gap (3-11) BUN (6-23) mg/dl Creatinine (0.6-1.4) mg/dl Est Cr Clr Drug Dosing ml/min Est GFR ( Amer) ml/min Est GFR (Non-Af Amer) ml/min BUN/Creatinine Ratio (10-20) Glucose (70-99(Fasting)) mg/dl POC Glucose 89 93 (70-99) mg/dl Calcium (8.5-10.1) mg/dl Phosphorus (2.5-4.9) mg/dl Magnesium (1.7-2.4) mg/dl Hepatitis C Ab (EIA) (NON-REACTIVE) Hep C Ab Signal/Cutoff (<1.00) 05/16/22 Range/Units 05:35 WBC (4.8-10.8) K/ul RBC (4.63-6.08) M/uL Hgb (14.0-18.0) g/dl Hct (40.1-51.0) % MCV (80.0-100.0) fL MCH (25.0-34.0) pg MCHC (32.0-36.0) g/dL RDW Std Deviation (36.4-46.3) fL RDW Coeff of Erika (11.5-14.5) % Plt Count (130-400) K/uL MPV (9.4-12.4) fL Immature Gran % (Auto) % Neut % (Auto) % Lymph % (Auto) % [place] % (Auto) % Eos % (Auto) % Baso % (Auto) % Neut # (Auto) (1.4-6.5) K/uL Lymph # (Auto) (1.2-3.4) K/uL [place] # (Auto) (0.24-0.82) K/uL Eos # (Auto) (0-0.50) K/uL Baso # (Auto) (0-0.2) K/uL Immature Gran # (Auto) (0.00-0.02) K/uL Sodium (136-145) mmol/L Potassium (3.5-5.1) mmol/L Chloride (98-107) mmol/L Carbon Dioxide (21-32) mmol/L Anion Gap (3-11) BUN (6-23) mg/dl Creatinine (0.6-1.4) mg/dl Est Cr Clr Drug Dosing ml/min Est GFR ( Amer) ml/min Est GFR (Non-Af Amer) ml/min BUN/Creatinine Ratio (10-20) Glucose (70-99(Fasting)) mg/dl POC Glucose (70-99) mg/dl Calcium (8.5-10.1) mg/dl Phosphorus (2.5-4.9) mg/dl Magnesium (1.7-2.4) mg/dl Hepatitis C Ab (EIA) NON-REACTIVE (NON-REACTIVE) Hep C Ab Signal/Cutoff 0.02 (<1.00) PG Care Time/CCT Total # of Minutes Spent Total Time Spent with Patient: Total time spent is greater than 50% in coordination of care (as documented) at patient's floor/unit and/or counseling patient: Coding Level of Care Code 71351 Subseq Hosp Care Lvl 2 Diagnoses Clostridium difficile colitis A04.72 Sepsis A41.9 CAD (coronary artery disease) of artery bypass graft I25.810 Hyponatremia E87.1 Acute sinusitis J01.90 Hypertension I10 Hyperlipidemia E78.5 GERD without esophagitis K21.9 Type 2 diabetes mellitus E11.9 Moderate obstructive sleep apnea G47.33 COVID U07.1
[2022-05-17] MEDS ORDERED: LACTATED RINGER'S 1,000 ML IV SCH (15:45)
[2022-05-17] MEDS: ENOXAPARIN INJ 40 MG/0.4 ML SYR SQ SCH (17:20)
[2022-05-17] MEDS: ATORVASTATIN 40 MG TAB PO SCH (19:45)
[2022-05-17] MEDS: CHOLESTYRAMINE LIGHT 4 GM PKT PO SCH (20:50)
[2022-05-18] MEDS: VANCOMYCIN HCL 250 MG/5 ML SOLN PO SCH ×4 (00:12→18:11)
[2022-05-18] MEDS: RASPBERRY SYRUP 5 ML UDP PO SCH ×4 (00:12→18:10)
[2022-05-18] MEDS: ESCITALOPRAM OXALATE 10 MG TAB PO SCH (07:46)
[2022-05-18] MEDS: FLUTICASONE PROPIONATE NA SPR 16 GM BTL SCH (07:46)
[2022-05-18] MEDS: UMECLIDINIUM/VILANTEROL 62.5/25MCG 7 PUFFS/INHALER INH SCH (07:46)
[2022-05-18] MEDS: FAMOTIDINE 40 MG TABLET PO SCH (07:47)
[2022-05-18] MEDS: ASPIRIN 81 MG ECTAB PO SCH (07:47)
[2022-05-18] MEDS: FLUTICASONE FUROATE 100MCG 14 PUFFS/INHALER INH SCH (07:47)
[2022-05-18] MEDS: METOPROLOL SUCC 25MG EXT REL TAB PO SCH (07:47)
[2022-05-18] MEDS: ISOSORBIDE MONO EXTENDED REL 30 MG TABCR PO SCH (07:47)
[2022-05-18] MEDS: LORATADINE 10 MG TAB PO SCH (07:47)
[2022-05-18] MEDS: CLOPIDOGREL BISULFATE 75 MG TAB PO SCH (07:47)
[2022-05-18] MEDS: POT PHOSPHATE MONOBASIC W/ SOD TAB PO SCH (07:48)
[2022-05-18 08:18] LABS: Basophils # (auto) 0.03 K/uL (0-0.2); Basophils % (auto) 0.5 %; Eosinophils # (auto) 0.35 K/uL (0-0.50); Eosinophils % (auto) 5.7 %; Hemoglobin 14.4 g/dl (14.0-18.0); Immature Granulocytes # (auto) 0.01 K/uL (0.00-0.02); Immature Granulocytes % (auto) 0.2 %; Lymphocytes # (auto) 1.59 K/uL (1.2-3.4); Lymphocytes % (auto) 25.7 %; Mean Corpuscular Hemoglobin 29.6 pg (25.0-34.0); Mean Corpuscular Hgb Conc 34.3 g/dL (32.0-36.0); Mean Corpuscular Volume 86.4 fL (80.0-100.0); Mean Platelet Volume 8.5 fL (9.4-12.4); Monocytes # (auto) 0.69 K/uL (0.24-0.82); Monocytes % (auto) 11.2 %; Neutrophils # (auto) 3.51 K/uL (1.4-6.5); Neutrophils % (auto) 56.7 %; Platelet Count 152 K/uL (130-400); RDW Coefficient of Variation 13.2 % (11.5-14.5); RDW Standard Deviation 42.2 fL (36.4-46.3); Red Blood Count 4.86 M/uL (4.63-6.08); White Blood Count 6.18 K/ul (4.8-10.8)
[2022-05-18 08:43] LABS: Albumin Globulin Ratio 1.4 (0.9-2); Albumin Level 3.6 gm/dl (3.4-5.0); BUN Creatinine Ratio 14.9 (10-20); Bilirubin,Total 0.6 mg/dl (0.2-1.0); Calcium 8.4 mg/dl (8.5-10.1); Creatinine Clr Calc Pharmacy 72.7 ml/min; Est GFR (African American) 90.3 ml/min; Est GFR (Non-African American) 77.9 ml/min; Globulin 2.5 gm/dl (2.5-4.0); Phosphorus 3.3 mg/dl (2.5-4.9); Potassium 3.7 mmol/L (3.5-5.1); Total Protein 6.1 gm/dl (6.0-8.3)
[2022-05-18] MEDS: CHOLESTYRAMINE LIGHT 4 GM PKT PO SCH ×2 (09:20→21:40)
[2022-05-18] MEDS ORDERED: SODIUM CHLORIDE 0.9% 1000ML 1,000 ML IV ONE (10:22)
--- NOTE | 2022-05-18 10:23 | Hospitalist Progress Note ---
Date of Service May 18, 2022 Assessment & Plan (1) Clostridium difficile colitis: Plan: 76yo male with history of CAD, HTN, diabetes, hyperlipidemia admitted for C. difficile colitis. Incidentally noted on admission to be COVID-positive. C. diff colitis: Patient was on Augmentin x 5 days for sinus congestion. With leukocytosis of 18.14 with neutrophil predominance. Procalcitonin elevated at 1.69. CTAP - nonobstructive renal stone, 5mm gall stone as well as mild colitis findings. Positive for C. difficile gene and toxin. Still having 10 watery stools so far today, no abd pain, no renal failure. Continue po Vanco 250mg po q6h x 10 day course (complete on 05/26). Continue cholestyramine 4 gm po bid for diarrhea, would avoid antimotility agents such as Imodium given diarrhea is due to C. diff colitis. Replace electrolytes as necessary; no replacement necessary today. (2) Sepsis: Plan: With fever, leukocytosis, and C. diff colitis as etiology; treatment of such described above. Sepsis now resolved. Tested positive for COVID on 04/12, no hypoxia no pneumonia on chest x-ray this admission. Flu and RSV negative. UA without evidence of infection. Blood cultures negative. Noted to have gallstone on imaging however patient does not have any abdominal pain or RUQ tenderness. (3) CAD (coronary artery disease) of artery bypass graft: Plan: Patient with history of CAD s/p CABG x 3V in 2010. Continue ASA, Plavix, and atorvastatin, metoprolol, isosorbide mononitrate. (4) Hyponatremia: Plan: Na+ dropped to 131 on admission likely from dehydration from severe diarrhea, now resolved with a sodium of 139 today. Continue IVF bolus/reassess given patient continues to have profound amounts of watery diarrhea. (5) Acute sinusitis: Plan: Completed course of antibiotics (had Zosyn while admitted with an end date of 05/17). (6) Hypertension: Plan: Blood pressure normal Continue Isosorbide, Metoprolol (7) Hyperlipidemia: Plan: Chronic Continue Atorvastatin (8) GERD without esophagitis: Plan: Pepcid 40mg po daily (9) Type 2 diabetes mellitus: Plan: Diet controlled BSG's with meals and at bedtime. (10) Moderate obstructive sleep apnea: Plan: Chronic. Patient is compliant with CPAP. Continue. (11) COVID: Plan: Unlikely to be new infection, will give him precautions given cannot prove this. No treatment necessary given patient is asymptomatic. Plan DVT proph- Lovenox 40mg daily Anticipate discharge hopefully tomorrow based on if his bowel movements improve Admission and Anticipated Discharge Date Admission Date: May 17, 2022 Subjective Overnight patient had several bouts of diarrhea, and on my interview this morning patient reports that he thinks he is already had at least 8 bowel movements this morning. He certainly reports a decrease in abdominal pain, and does not think he has had any fevers. This is supported by no fevers overnight on vital signs. He otherwise does not have any complaints today. Review of Systems Review of Systems: All systems reviewed & are unremarkable except as noted in HPI & below Physical Exam Constitutional: WD/WN, vitals as above Respiratory: normal respiratory effort, lungs clear to auscultation Cardiovascular: RRR, no murmur, no edema Gastrointestinal (Abdomen): normal bowel sounds, soft, nontender, no hepatosplenomegaly Skin: no rashes, warm and dry Psychiatric: A+Ox3, euthymic affect Results & Data Results & Data ([facility]) Vital Signs (Past 12 Hours) Vital Signs Temp Pulse Resp BP Pulse Ox O2 Del Method 05/18/22 09:19 154/81 H 05/18/22 07:40 36.5 C 69 18 178/96 H 96 Room Air PG Care Time/CCT Total # of Minutes Spent Total Time Spent with Patient: Total time spent is greater than 50% in coordination of care (as documented) at patient's floor/unit and/or counseling patient: Coding Level of Care Code 27219 Subseq Hosp Care Lvl 2 Diagnoses Clostridium difficile colitis A04.72 Sepsis A41.9 CAD (coronary artery disease) of artery bypass graft I25.810 Hyponatremia E87.1 Acute sinusitis J01.90 Hypertension I10 Hyperlipidemia E78.5 GERD without esophagitis K21.9 Type 2 diabetes mellitus E11.9 Moderate obstructive sleep apnea G47.33 COVID U07.1
[2022-05-18] MEDS: ENOXAPARIN INJ 40 MG/0.4 ML SYR SQ SCH (16:02)
[2022-05-18] MEDS: ATORVASTATIN 40 MG TAB PO SCH (20:19)
[2022-05-19] MEDS: RASPBERRY SYRUP 5 ML UDP PO SCH ×3 (00:43→12:12)
[2022-05-19] MEDS: VANCOMYCIN HCL 250 MG/5 ML SOLN PO SCH ×3 (00:43→12:12)
[2022-05-19 06:57] LABS: Calcium 8.4 mg/dl (8.5-10.1); Creatinine Clr Calc Pharmacy 86.5 ml/min; Est GFR (African American) 100.4 ml/min; Est GFR (Non-African American) 86.6 ml/min; Magnesium 1.9 mg/dl (1.7-2.4); Potassium 3.6 mmol/L (3.5-5.1)
[2022-05-19] MEDS: FLUTICASONE PROPIONATE NA SPR 16 GM BTL SCH (08:04)
[2022-05-19] MEDS: UMECLIDINIUM/VILANTEROL 62.5/25MCG 7 PUFFS/INHALER INH SCH (08:04)
[2022-05-19] MEDS: FLUTICASONE FUROATE 100MCG 14 PUFFS/INHALER INH SCH (08:05)
[2022-05-19] MEDS: LORATADINE 10 MG TAB PO SCH (08:05)
[2022-05-19] MEDS: ISOSORBIDE MONO EXTENDED REL 30 MG TABCR PO SCH (08:05)
[2022-05-19] MEDS: ESCITALOPRAM OXALATE 10 MG TAB PO SCH (08:06)
[2022-05-19] MEDS: METOPROLOL SUCC 25MG EXT REL TAB PO SCH (08:06)
[2022-05-19] MEDS: FAMOTIDINE 40 MG TABLET PO SCH (08:06)
[2022-05-19] MEDS: ASPIRIN 81 MG ECTAB PO SCH (08:06)
[2022-05-19] MEDS: CHOLESTYRAMINE LIGHT 4 GM PKT PO SCH (10:19)
--- NOTE | 2022-05-19 12:51 | Discharge Summary ---
Discharge Summary Date of Service May 19, 2022 Admission HPI Per Admitting Provider Jaya Morfin is a 76yo male with history of CAD s/p 3V CABG in 2010, HTN, HLP, GERD and diet controlled DM presenting with two days of fever and diarrhea. Patient has been having sinus congestion and discomfort for the last week. He [facility] He is presently on Day 11/11 - did not take it today due to illness. Patient has been having fever x 2 days with Tm of 102 with myalgias as well as watery diarrhea and nausea. He has also had cough and mild increase in dyspnea, mostly with exertion. He denies chest pain or urinary symptoms. Denies abdominal pain, back or flank pain. No additional complaints at this time. Patient did have Covid-19 in March 2022. He had a recent exposure last week while at a - several people in attendance tested POSITIVE for Covid-19. He is fully vaccinated and has received the bivalent booster as well. In the ER he is afebrile, HD stable, no respiratory complaints. Adequate oxygenation on room air. Patient had episode of watery diarrhea during my encounter. Did appear dyspneic upon return from the bathroom, maintained adequate saturations. ER Course: Zosyn 4.5gm NSS x 1L Admission Exam Per Admitting Provider General: patient resting comfortably, NAD,ill in appearance, AA&O x 4 Skin: warm, dry, intact, no rashes or lesions HEENT: NC/AT, PERRL, EOMI, anicteric sclera, conjunctiva without injection, external ear normal to inspection and nontender, nares patent, moist mucus membranes, dentition intact, no oropharyngeal lesions, neck supple, trachea midline, no LAD, no thyromegaly, no JVD Heart: +S1/S2, regular, no m/r/g Lungs: equal air entry bilaterally, no rales/rhonchi/wheezes Abd: +BS, soft, NT/ND, no masses/organomegaly/ascites Ext: warm, 2+ pulses in UE/LE bilaterally, no clubbing/cyanosis or edema Neuro: nonfocal, patient AA&O x 4, speech intact, no facial droop, moving all extremities on command with equal strength 5/5 Principal Dx & Hospital Course #1 = Principal Diagnosis (1) Clostridium difficile colitis: 76yo male with history of CAD, HTN, diabetes, hyperlipidemia admitted for C. difficile colitis. Incidentally noted on admission to be COVID-positive. C. diff colitis: Patient was on Augmentin x5 days for sinus congestion. With leukocytosis of 18.14 with neutrophil predominance. Procalcitonin elevated at 1.69. CTAP - nonobstructive renal stone, 5mm gall stone as well as mild colitis findings. Positive for C. difficile gene and toxin. With improvement in stools on cholestyramine. Will discharge with vancomycin 125 mg every 6 hours for a total of 10 days, to complete on 05/26. Advised patient to continue Metamucil at home for diarrhea. Oral fluid hydration at home. (2) Sepsis: With fever, leukocytosis, and C. diff colitis as etiology; treatment of such described above. Sepsis now resolved. Tested positive for COVID on 04/12, no hypoxia no pneumonia on chest x-ray this admission. Flu and RSV negative. UA without evidence of infection. Blood cultures negative. Noted to have gallstone on imaging however patient does not have any abdominal pain or RUQ tenderness. (3) CAD (coronary artery disease) of artery bypass graft: Patient with history of CAD s/p CABG x 3 in 2010. Continue ASA, Plavix, and atorvastatin, metoprolol, isosorbide mononitrate. (4) Hyponatremia: Na+ dropped to 131 on admission likely from dehydration from severe diarrhea, has since resolved with a sodium of 139. (5) Acute sinusitis: Completed course of antibiotics (had Zosyn while admitted with an end date of 05/17). (6) Hypertension: Blood pressure normal. Continue Isosorbide, Metoprolol. (7) Hyperlipidemia: Continue Atorvastatin. (8) GERD without esophagitis: Pepcid 40mg po daily. (9) Type 2 diabetes mellitus: Diet controlled. (10) Moderate obstructive sleep apnea: Chronic. Patient is compliant with CPAP.. (11) COVID: Unlikely to be new infection. No treatment necessary given patient is asymptomatic. Plan Discharge home with self-care Discharge Exam Constitutional WD/WN, vitals as above Respiratory normal respiratory effort, lungs clear to auscultation Cardiovascular RRR, no murmur, no edema Gastrointestinal (Abdomen) normal bowel sounds, soft, nontender, no hepatosplenomegaly Skin no rashes, warm and dry Updated Medication List Medication Instructions Recorded Confirmed Type ascorbic acid (vitamin C) 500 mg 500 mg PO QAM 08/04/18 05/15/22 History chewable tablet (Vitamin C) aspirin 81 mg tablet,delayed 81 mg PO QAM 08/04/18 05/15/22 History release cinnamon bark 500 mg capsule 2 cap PO QAM 08/04/18 05/15/22 History (Cinnamon) garlic 1,000 mg capsule 1,000 mg PO QAM 08/04/18 05/15/22 History glucosam 750 mg-chondroi 100 2 tab PO QAM 08/04/18 05/15/22 History mg-hyalur 1.65 mg-CF borate 108 mg tablet ([employer]) loratadine 10 mg tablet (Claritin) 10 mg PO QAM 08/04/18 05/15/22 History multivitamin 1 tab PO QAM 08/04/18 05/15/22 History omega-3 acid ethyl esters 1 gram 1 cap PO QAM 02/28/19 05/15/22 History capsule albuterol sulfate 90 mcg/actuation 1 inh inhalation QID PRN shortness 06/16/21 05/15/22 Rx aerosol inhaler of breath or wheezing #8.5 grams atorvastatin 40 mg tablet 40 mg PO PM #90 tabs 10/02/21 05/15/22 Rx clopidogrel 75 mg tablet 75 mg PO Q OTHER DAY #45 tabs 10/02/21 05/15/22 Rx escitalopram oxalate 10 mg tablet 10 mg PO QAM #90 tabs 10/02/21 05/15/22 Rx isosorbide mononitrate 30 mg 30 mg PO QAM #90 tabs 10/02/21 05/15/22 Rx tablet,extended release 24 hr metoprolol succinate 25 mg 25 mg PO QAM #90 tabs 10/02/21 05/15/22 Rx tablet,extended release 24 hr nitroglycerin 0.4 mg sublingual 0.4 mg sublingual UD PRN Chest 10/02/21 05/15/22 Rx tablet Pain #30 tabs fluticasone fur. 100 mcg-umeclid 1 inh inhalation DAILY #3 Inhalers 04/26/22 05/15/22 Rx 62.5 mcg-vilant 25 mcg inhalat.powder (Trelegy Ellipta) fluticasone propionate 50 2 spray intranasal DAILY 04/26/22 05/15/22 History mcg/actuation nasal spray,suspension famotidine 40 mg tablet 40 mg PO QAM 30 days #30 tabs 05/19/22 Rx vancomycin 125 mg capsule 125 mg PO Q6H 7 days #28 caps 05/19/22 Rx Hospital Stay Data Consultations 05/15/22 21:38 ED Decision to Admit Stat Diagnostic Imagining Performed 05/15/22 20:47 CT abd pelvis wo con Urgent Pending Results Patient Have Any Pending Studies at Discharge: No Discharge Instructions Given to Patient (Per Discharging Provider) You were admitted to the hospital for evaluation of your diarrhea. You were found to have an intestinal infection called C. diff. This was treated with vancomycin oral antibiotics. Please see dose instructions below. You were given IV fluids and Metamucil to help with the diarrhea as well. You improved clinically and on your labwork and you were felt to be safe for discharge home with the following recommendations: 1) CONTINUE vancomycin (the gut antibiotic), 1 tablet every 6 hours for the next 7 days, starting this evening. This is for the C. diff infection. 2) STOP esomeprazole. This medication can slightly increase your risk of C. diff. 3) START Pepcid, one tablet daily for reflux. This medication replaces your esomeprazole. If the prescription is not covered you can get it over the counter. Ask the pharmacy for help finding it. 4) CONTINUE all other home medications that aren't discussed above. Follow up with your primary care doctor in the next 2 weeks to see how you are doing. If you have lots of diarrhea be sure to supplement your fluid intake with extra water. If you have chest pain, shortness of breath, feelings of weakness like you might pass out, please seek urgent medical attention. Your prescriptions were sent to the [facility]. Total Time Total Time Spent Total Time Spent (In Minutes): 30 minutes Coding Level of Care Code D/C DAY MANAGEMENT >30 MINS Diagnoses Clostridium difficile colitis A04.72 Sepsis A41.9 CAD (coronary artery disease) of artery bypass graft I25.810 Hyponatremia E87.1 Acute sinusitis J01.90 Hypertension I10 Hyperlipidemia E78.5 GERD without esophagitis K21.9 Type 2 diabetes mellitus E11.9 Moderate obstructive sleep apnea G47.33 COVID U07.1
== END 2022-05-19 13:32 | disposition home or self-care (01) | DRG 871 ==
LOC: ED 19:08 → 3E 19:08 → SUATTDRO 22:19 → 3E 23:04 → SUATTDRO 05-17 15:42

== ENCOUNTER 2022-06-06 06:43 | Inpatient (IN) ==
[2022-06-06] MEDS ORDERED: SODIUM CHLORIDE 0.9% 1000ML 1,000 ML IV ONE (06:59)
[2022-06-06] MEDS ORDERED: cefTRIAXone SODIUM 2,000 MG/70 ML BAG IV STA (06:59)
--- NOTE | 2022-06-06 07:04 | Emergency Department Note ---
Impression & Plan C. difficile colitis, Abdominal pain, Fever, Leukocytosis ED Provider Note NAME: SHELLY DUBON AGE: 76 SEX: M : 1945 ARRIVES VIA: Walk-In INFORMANT: Patient ED PROVIDER(S): Janusz Dowling DO CHIEF COMPLAINT: abdominal pain HPI: Patient is a 76-year-old male with a past medical history CAD s/p 3V CABG in 2010, HTN, HLP, GERD and diet controlled DM who presents to the ER for abdominal pain, diarrhea, and fevers which started in the past 24 hours. He does have a cough but notes that this has been there for the past year. He notes this is unchanged. He was COVID-positive back in March and was admitted here in May. He was admitted for C. difficile and discharged and took his complete course of vancomycin. He does admit to some sinus pressure as well. No dysuria, urgency, or frequency. No other exacerbating or remitting factors. ROS: See above HPI for pertinent positives & negatives. A total of 10 systems reviewed and were otherwise negative. PAST MEDICAL HISTORY:See Below PAST SURGICAL HISTORY:See Below FAMILY HISTORY:See Below SOCIAL HISTORY:See Below HOME MEDICATIONS:See Below ALLERGIES:See Below VITALS:See Below PHYSICAL EXAMINATION: GENERAL: Sitting up in bed, alert, well appearing, well nourished, no distress, non-toxic EYE EXAM: normal conjunctiva. OROPHARYNX:mucous membranes are moist NECK: supple, no nuchal rigidity, no adenopathy, non-tender LUNGS: Clear to auscultation. Normal chest wall mechanics HEART: no murmurs, S1 normal and S2 normal ABDOMEN: abdomen soft, non-tender, normo-active bowel sounds, no masses, no rebound or guarding. BACK: Back is symmetrical on inspection and there is no deformity, no midline tenderness, no CVA tenderness. SKIN: no rashes and no bruising UPPER EXTREMITIES: upper extremities are grossly normal. LOWER EXTREMITIES: No pitting edema. NEURO EXAM: Normal sensorium, cranial nerves II-XII grossly intact, normal speech, no gross weakness of arms, no gross weakness of legs. MEDICAL DECISION MAKING: Patient is a 76-year-old male who presents the ER for abdominal pain associated with persistent diarrhea. He was established blood work is obtained. Labs show leukocytosis 14,000. No significant anemia. BMP along with LFTs bilirubin was unremarkable. Magnesium slightly low at 1.4. LFTs and troponin were negative. UA was contaminated. COVID was positive and we question of this secondary to his positive back in March. CT abdomen pelvis shows no enteritis. He was given Dificid IV fluids and updated bedside admitted for further work-up as I favor his sepsis is likely secondary to his CHF causing the leukocytosis and fe edita. Triage Nursing notes reviewed. Limited review of prior medical records performed Vital Signs: reviewed and remarkable for febrile and tachy Differential diagnosis: Differential diagnoses includes but is not limited to gastritis, peptic ulcer disease, GERD, gallbladder disease, pancreatitis, small bowel obstruction, acute coronary syndrome, pericarditis, ischemic bowel, irritable bowel disease, irritable bowel syndrome, appendicitis, diverticulitis, malignancy, hernia, urinary tract infection, torsion, perforation, trauma, infectious. ER treatment provided: See below Diagnostics interpreted by me: ECG: Sinus rhythm rate 98 Normal axis Septal Q waves T wave inversion lateral leads Nonspecific ST wave changes in the lateral leads QTC 401 No significant change from May 2022 Cardiac Monitoring: An order was placed for continuous cardiac monitoring. The monitor shows a rate of 99 with sinus rhythm. Laboratory studies: As stated above and show below. Imaging studies: CT abdomen pelvis shows enteritis Consultation(s): Discussed with the hospitalist for further evaluation Procedures: none Critical Care: None Past Med/Surg History Medical History (Updated 06/06/22 @ 12:39 by Janusz Dowling DO) Borderline diabetes CAD (coronary artery disease) of artery bypass graft Clostridium difficile colitis COVID Depression Diarrhea Esophageal ulcer without bleeding GERD (gastroesophageal reflux disease) Hyperlipidemia Hypertension Obesity Osteoarthritis Sleep apnea CPAP Transient ischemic attack (TIA) 10 YEARS AGO -no deficits, no neurologist URI (upper respiratory infection) Surgical History History of cardiac cath 2010 - [facility] - CP --> CABG - FOLLOWS W/ DR. RUBALCAVA 2016 - [facility] - - NO STENTS/ANGIOPLASTY History of colonoscopy (2015) History of coronary artery bypass graft (2010) 2010 - [facility] 3 VESSELS - FOLLOWS W/ DR. RUBALCAVA History of esophagogastroduodenoscopy (EGD) History of neck surgery benign lump removed off neck History of surgery LIPOMA EXCISION History of thumb surgery left thumb bone spur removal History of tooth extraction Family History Mother Family history of diabetes mellitus Myocardial infarction Sister Family history of diabetes mellitus Father Myocardial infarction Other Hypertension Kidney stones No family history of adverse response to anesthesia Denies family history of Ovarian cancer Prostate cancer Crohn's disease Breast cancer Lung cancer Colorectal cancer Stroke Social History Smoking Status: Never smoker Second Hand Exposure: No; Hx Alcohol Use: Yes Alcohol type: beer Hx Substance Use: No Preferred Language: Finnish Communication Ability: Effective Retail Asset Protection Specialist Required: No Beliefs That Will Affect Care: Sabianist Sabianist Beliefs: Judaism. 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 Feels Safe at Home: Yes Childhood Exposure to Second-Hand Smoke: Yes caffeine: No Dental Care, Regularly: Yes Physical Activity Frequency: Daily Seatbelt Use: always Sunscreen Use: No Assistive Devices: None Allergies Allergies Allergy/AdvReac Type Severity Reaction Status Date / Time Iodinated Contrast Media AdvReac Intermediate "FEELING Verified 05/21/22 09:02 FUNNY" Home Meds Home Medications Medication Instructions Recorded Confirmed ascorbic acid (vitamin C) 500 mg 500 mg PO QAM 08/04/18 05/21/22 chewable tablet (Vitamin C) aspirin 81 mg tablet,delayed 81 mg PO QAM 08/04/18 05/21/22 release cinnamon bark 500 mg capsule 2 cap PO QAM 08/04/18 05/21/22 (Cinnamon) garlic 1,000 mg capsule 1,000 mg PO QAM 08/04/18 05/21/22 glucosam 750 mg-chondroi 100 2 tab PO QAM 08/04/18 05/21/22 mg-hyalur 1.65 mg-CF borate 108 mg tablet (Move L2C) loratadine 10 mg tablet (Claritin) 10 mg PO QAM 08/04/18 05/21/22 multivitamin 1 tab PO QAM 08/04/18 05/21/22 omega-3 acid ethyl esters 1 gram 1 cap PO QAM 02/28/19 05/21/22 capsule fluticasone propionate 50 2 spray intranasal DAILY 04/26/22 05/21/22 mcg/actuation nasal spray,suspension Previous Rx's Medication Instructions Recorded albuterol sulfate 90 mcg/actuation 1 inh inhalation QID PRN shortness 06/16/21 aerosol inhaler of breath or wheezing #8.5 grams atorvastatin 40 mg tablet 40 mg PO PM #90 tabs 10/02/21 clopidogrel 75 mg tablet 75 mg PO Q OTHER DAY #45 tabs 10/02/21 escitalopram oxalate 10 mg tablet 10 mg PO QAM #90 tabs 10/02/21 isosorbide mononitrate 30 mg 30 mg PO QAM #90 tabs 10/02/21 tablet,extended release 24 hr metoprolol succinate 25 mg 25 mg PO QAM #90 tabs 10/02/21 tablet,extended release 24 hr nitroglycerin 0.4 mg sublingual 0.4 mg sublingual UD PRN Chest 10/02/21 tablet Pain #30 tabs fluticasone fur. 100 mcg-umeclid 1 inh inhalation DAILY #3 Inhalers 04/26/22 62.5 mcg-vilant 25 mcg inhalat.powder (Trelegy Ellipta) famotidine 40 mg tablet 40 mg PO QAM 30 days #30 tabs 05/19/22 Results & Data (ED) Vital Signs Vital Signs - 24 hr 06/06/22 06:47 06/06/22 07:21 06/06/22 07:23 Temperature 38.2 C H Temperature Source Temporal Artery Scan Pulse Rate 99 H Pulse Rate [Apical] 92 H 92 H Pulse Rhythm [Apical] Regular Respiratory Rate 18 16 16 Respiratory Depth Normal Normal Blood Pressure 136/71 Blood Pressure [Left Arm] 151/57 H Blood Pressure Mean 92 Blood Pressure Mean [Left Arm] 88 Pulse Oximetry 93 94 93 Oxygen Delivery Method Room Air Room Air Room Air Sepsis Recent Fever Within 48 Hours Yes Sepsis New/Unexplained Change in Mental Status N/A Sepsis Action Taken by Nursing No Action Required 06/06/22 07:24 06/06/22 09:17 06/06/22 10:33 Temperature Temperature Source Pulse Rate 91 H Pulse Rate [Apical] 87 105 H Pulse Rhythm [Apical] Respiratory Rate 19 16 Respiratory Depth Blood Pressure Blood Pressure [Left Arm] 189/85 H Blood Pressure Mean Blood Pressure Mean [Left Arm] 119 Pulse Oximetry 94 95 92 Oxygen Delivery Method Room Air Room Air Room Air Sepsis Recent Fever Within 48 Hours Sepsis New/Unexplained Change in Mental Status Sepsis Action Taken by Nursing 06/06/22 12:11 Temperature Temperature Source Pulse Rate Pulse Rate [Apical] 82 Pulse Rhythm [Apical] Respiratory Rate 16 Respiratory Depth Blood Pressure Blood Pressure [Left Arm] Blood Pressure Mean Blood Pressure Mean [Left Arm] Pulse Oximetry 92 Oxygen Delivery Method Room Air Sepsis Recent Fever Within 48 Hours Sepsis New/Unexplained Change in Mental Status Sepsis Action Taken by Nursing Laboratory Data Result diagrams: 06/06/22 07:25 06/06/22 07:25 Lab Results 06/06/22 06/06/22 06/06/22 Range/Units 07:25 07:25 07:25 WBC 14.70 H (4.8-10.8) K/ul RBC 4.89 (4.63-6.08) M/uL Hgb 14.4 (14.0-18.0) g/dl Hct 42.9 (40.1-51.0) % MCV 87.7 (80.0-100.0) fL MCH 29.4 (25.0-34.0) pg MCHC 33.6 (32.0-36.0) g/dL RDW Std Deviation 43.3 (36.4-46.3) fL RDW Coeff of Erika 13.5 (11.5-14.5) % Plt Count 168 (130-400) K/uL MPV 8.8 L (9.4-12.4) fL Immature Gran % (Auto) 0.7 % Neut % (Auto) 86.6 % Lymph % (Auto) 4.1 % [place] % (Auto) 7.8 % Eos % (Auto) 0.5 % Baso % (Auto) 0.3 % Neut # (Auto) 12.75 H (1.4-6.5) K/uL Lymph # (Auto) 0.60 L (1.2-3.4) K/uL [place] # (Auto) 1.14 H (0.24-0.82) K/uL Eos # (Auto) 0.07 (0-0.50) K/uL Baso # (Auto) 0.04 (0-0.2) K/uL Immature Gran # (Auto) 0.10 H (0.00-0.02) K/uL Sodium 135 L (136-145) mmol/L Potassium 3.9 (3.5-5.1) mmol/L Chloride 104 (98-107) mmol/L Carbon Dioxide 22 (21-32) mmol/L Anion Gap 9 (3-11) BUN 18 (6-23) mg/dl Creatinine 0.88 (0.6-1.4) mg/dl Est Cr Clr Drug Dosing 77.3 ml/min Est GFR ( Amer) 96.0 ml/min Est GFR (Non-Af Amer) 82.9 ml/min BUN/Creatinine Ratio 20.5 H (10-20) Glucose 131 H (70-99(Fasting)) mg/dl Lactate 1.8 (0.4-2.0) mmol/L Calcium 9.1 (8.5-10.1) mg/dl Magnesium 1.4 L (1.7-2.4) mg/dl Total Bilirubin 1.4 H (0.2-1.0) mg/dl Direct Bilirubin TNP AST 22 (13-39) U/L ALT 26 (7-52) U/L Alkaline Phosphatase 79 (34-104) U/L Troponin I High Sens 8.8 (0-20) pg/ml Total Protein 6.4 (6.0-8.3) gm/dl Albumin 4.0 (3.4-5.0) gm/dl Procalcitonin (0-0.5) ng/ml Urine Color Urine Appearance (Clear) Urine pH (4.5-7.5) Ur Specific Ferguson (1.000-1.030) Urine Protein (Negative) Urine Glucose (UA) (Negative) Urine Ketones (Negative) Urine Blood (Negative) Urine Nitrite (Negative) Urine Bilirubin (Negative) Urine Urobilinogen (Negative) Ur Leukocyte Esterase (Negative) Urine WBC (Auto) (0-5) /hpf Urine RBC (Auto) (0-4) /hpf U Hyaline Cast (Auto) (0-5) /lpf U Epithel Cells (Auto) (0-5) /lpf Urine Bacteria (Auto) (Negative) SARS-CoV-2, RNA, NAAT (NEGATIVE) 06/06/22 06/06/22 06/06/22 Range/Units 07:25 07:25 Unknown WBC (4.8-10.8) K/ul RBC (4.63-6.08) M/uL Hgb (14.0-18.0) g/dl Hct (40.1-51.0) % MCV (80.0-100.0) fL MCH (25.0-34.0) pg MCHC (32.0-36.0) g/dL RDW Std Deviation (36.4-46.3) fL RDW Coeff of Erika (11.5-14.5) % Plt Count (130-400) K/uL MPV (9.4-12.4) fL Immature Gran % (Auto) % Neut % (Auto) % Lymph % (Auto) % [place] % (Auto) % Eos % (Auto) % Baso % (Auto) % Neut # (Auto) (1.4-6.5) K/uL Lymph # (Auto) (1.2-3.4) K/uL [place] # (Auto) (0.24-0.82) K/uL Eos # (Auto) (0-0.50) K/uL Baso # (Auto) (0-0.2) K/uL Immature Gran # (Auto) (0.00-0.02) K/uL Sodium (136-145) mmol/L Potassium (3.5-5.1) mmol/L Chloride (98-107) mmol/L Carbon Dioxide (21-32) mmol/L Anion Gap (3-11) BUN (6-23) mg/dl Creatinine (0.6-1.4) mg/dl Est Cr Clr Drug Dosing ml/min Est GFR ( Amer) ml/min Est GFR (Non-Af Amer) ml/min BUN/Creatinine Ratio (10-20) Glucose (70-99(Fasting)) mg/dl Lactate (0.4-2.0) mmol/L Calcium (8.5-10.1) mg/dl Magnesium (1.7-2.4) mg/dl Total Bilirubin (0.2-1.0) mg/dl Direct Bilirubin AST (13-39) U/L ALT (7-52) U/L Alkaline Phosphatase (34-104) U/L Troponin I High Sens (0-20) pg/ml Total Protein (6.0-8.3) gm/dl Albumin (3.4-5.0) gm/dl Procalcitonin 0.30 (0-0.5) ng/ml Urine Color Yellow Urine Appearance Clear (Clear) Urine pH 5.0 (4.5-7.5) Ur Specific Ferguson 1.026 (1.000-1.030) Urine Protein Negative (Negative) Urine Glucose (UA) Negative (Negative) Urine Ketones Trace H (Negative) Urine Blood 1+ H (Negative) Urine Nitrite Negative (Negative) Urine Bilirubin Negative (Negative) Urine Urobilinogen Negative (Negative) Ur Leukocyte Esterase 1+ H (Negative) Urine WBC (Auto) 1-5 (0-5) /hpf Urine RBC (Auto) 5-10 H (0-4) /hpf U Hyaline Cast (Auto) 1-5 (0-5) /lpf U Epithel Cells (Auto) 5-10 H (0-5) /lpf Urine Bacteria (Auto) Negative (Negative) SARS-CoV-2, RNA, NAAT POSITIVE A* (NEGATIVE) Administered Medications Lactated Ringer's (Lr) 1,000 mls @ 100 mls/hr IV .Q10H JUDY Stop: 07/06/22 11:29 Last Admin: 06/06/22 12:04 Dose: 100 mls/hr Documented By: JOEL Magnesium Sulfate/Dextrose (Magnesium Sulfate / D5w) 1 gm in 100 mls @ 50 mls/hr IV Q2H JUDY Stop: 06/06/22 15:29 Last Admin: 06/06/22 12:04 Dose: 50 mls/hr Documented By: JOEL Discontinued Medications Fidaxomicin (Fidaxomicin 200 Mg Tab) 200 mg PO NOW ONE Stop: 06/06/22 09:27 Last Admin: 06/06/22 09:56 Dose: 200 mg Documented By: PROSPER Sodium Chloride (Nss 1000ml) 1,000 mls @ 999 mls/hr IV .Q1H1M ONE Stop: 06/06/22 07:59 Last Infusion: 06/06/22 10:33 Dose: 0 mls/hr Documented By: Admin: 06/06/22 07:47 Dose: 999 mls/hr Documented By: DASHAWN Ceftriaxone Sodium (Rocephin) 2,000 mg in 70 mls @ 140 mls/hr IV NOW STA Stop: 06/06/22 07:28 Last Infusion: 06/06/22 07:47 Dose: 0 mls/hr Documented By: Admin: 06/06/22 07:46 Dose: 140 mls/hr Documented By: HS Acetaminophen (Ofirmev) 1,000 mg in 100 mls @ 400 mls/hr IV NOW STA Stop: 06/06/22 11:27 Last Admin: 06/06/22 12:04 Dose: 400 mls/hr Documented By: RSL Metoprolol Succinate (Metoprolol Succ 25mg Ext Rel Tab) 25 mg PO NOW STA Stop: 06/06/22 10:24 Last Admin: 06/06/22 10:41 Dose: 25 mg Documented By: KV Imaging Data Radiologist's Impression: Chest X-Ray 06/06/22 06:50 XR chest 1V portable CLINICAL HISTORY: Sepsis. COMPARISON STUDY: Chest radiograph May 15, 2022. FINDINGS: There are median sternotomy wires. Lung volumes are normal. Lungs are clear. There is no pneumothorax or pleural effusion. Cardiomegaly is unchanged. Mediastinal contours are normal. There is no evidence for pulmonary edema. IMPRESSION: No acute cardiopulmonary findings. No change in appearance of the chest. ACT 112: Negative or not required by law. Electronically signed by: Sean Littlejohn M.D. 06/06/2022 7:46 AM Abdomen/Pelvis CT 06/06/22 06:59 CT OF THE ABDOMEN AND PELVIS WITHOUT CONTRAST CLINICAL HISTORY: Epigastric abdominal pain. COMPARISON STUDY: CT of the abdomen and pelvis May 15, 2022. TECHNIQUE: Axial images of the abdomen and pelvis were obtained without IV contrast. Images were reviewed in the axial, sagittal, and coronal planes. Automated exposure control was utilized for the study. A dose lowering technique was utilized adhering to the principles of ALARA. FINDINGS: No pneumatosis, free air or portal venous gas is present. Several small bilateral renal calculi are noted. The largest is a 3 mm left renal calculus. There are no ureteral calculi. There is no hydronephrosis. Exam is mildly compromised by motion artifact. A small calcified gallstone within the gallbladder is present. There is no evidence for acute cholecystitis. Unenhanced images of the liver, spleen, adrenal glands and pancreas are unremarkable. There is no biliary or pancreatic ductal dilatation. There is no evidence for a bowel obstruction. There is mild diffuse colonic wall thickening. There is also mild rectal wall thickening. Pericolonic stranding is noted. A similar pattern was shown on CT of May 15, 2022. Degree of pericolonic infiltration has slightly increased. An enlarged ileocolic lymph node on image 214 measures 1.4 x 1.2 cm. This was normal in size on prior CT. The appendix is normal. There is no abscess. Mild bladder wall thickening is accentuated by underdistention. This is unchanged. IMPRESSION: 1. Findings consistent with a nonspecific pancolitis, slightly increased in degree when compared to CT of May 15, 2022. Mild colonic wall thickening with pericolonic stranding. 2. Mildly enlarged ileocolic lymph node which was normal in size on prior CT. Therefore, this is likely reactive. A follow-up CT in 6 months to ensure resolution is recommended. 3. Bilateral nephrolithiasis. No ureteral calculi. 4. Small calcified gallstone within the gallbladder. No evidence for acute cholecystitis. ACT 112: Negative or not required by law. Electronically signed by: Sean Littlejohn M.D. 06/06/2022 8:44 AM Discharge Plan Visit Data Chief Complaint: Illness Stated Complaint: FEVER,DIARRHEA,NAUSEA,HX C-DIFF ED Provider: Janusz Dowling Discharge Problem: C. difficile colitis, Abdominal pain, Fever, Leukocytosis Forms Stand Alone Forms: My [employer] Prescriptions Prescriptions: No Action atorvastatin 40 mg tablet 40 mg PO PM Qty: 90 3RF clopidogrel 75 mg tablet 75 mg PO Q OTHER DAY Qty: 45 3RF escitalopram oxalate 10 mg tablet 10 mg PO QAM Qty: 90 3RF isosorbide mononitrate 30 mg tablet extended release 24 hr 30 mg PO QAM Qty: 90 3RF metoprolol succinate 25 mg tablet extended release 24 hr 25 mg PO QAM Qty: 90 3RF nitroglycerin 0.4 mg tablet, sublingual 0.4 mg Sublingual UD PRN (Reason: Chest Pain) Qty: 30 3RF albuterol sulfate 90 mcg/actuation HFA aerosol inhaler 1 inh inhalation QID PRN (Reason: shortness of breath or wheezing) Qty: 8.5 4RF omega-3 acid ethyl esters 1 gram capsule 1 cap PO QAM fluticasone propionate 50 mcg/actuation spray,suspension 2 spray intranasal DAILY Rx Instructions: administer into each nostril Trelegy Ellipta 100-62.5-25 mcg blister with device 1 inh inhalation DAILY Qty: 3 3RF multivitamin Tablet 1 tab PO QAM aspirin 81 mg Tablet,Delayed Release (Dr/Ec) 81 mg PO QAM garlic 1,000 mg Capsule 1,000 mg PO QAM ascorbic acid (vitamin C) [Vitamin C] 500 mg Tablet,Chewable 500 mg PO QAM loratadine [Claritin] 10 mg Tablet 10 mg PO QAM cinnamon bark [Cinnamon] 500 mg Capsule 2 cap PO QAM Move [facility] 750 mg-100 mg- 1.65 mg-108 mg Tablet 2 tab PO QAM famotidine 40 mg Tablet 40 mg PO QAM 30 Days Qty: 30 0RF Referrals Referrals: Pro,Inder Valdez MD [Primary Care Provider] -
--- NOTE | 2022-06-06 07:48 | XRay Report ---
XR chest 1V portable CLINICAL HISTORY: Sepsis. COMPARISON STUDY: Chest radiograph May 15, 2022. FINDINGS: There are median sternotomy wires. Lung volumes are normal. Lungs are clear. There is no pn eumothorax or pleural effusion. Cardiomegaly is unchanged. Mediastinal contours are normal. There is no evidence for pulmonary edema. IMPRESSION: No acute cardiopulmonary findings. No change in appearance of the chest. ACT 112: Negative or not required by law. Electronically signed by: Sean Littlejohn M.D. 06/06/2022 7:46 AM
[2022-06-06 07:49] LABS: Basophils # (auto) 0.04 K/uL (0-0.2); Basophils % (auto) 0.3 %; Eosinophils # (auto) 0.07 K/uL (0-0.50); Eosinophils % (auto) 0.5 %; Hematocrit (blood only) 42.9 % (40.1-51.0); Hemoglobin 14.4 g/dl (14.0-18.0); Immature Granulocytes % (auto) 0.7 %; Lymphocytes % (auto) 4.1 %; Mean Corpuscular Hemoglobin 29.4 pg (25.0-34.0); Mean Corpuscular Hgb Conc 33.6 g/dL (32.0-36.0); Mean Corpuscular Volume 87.7 fL (80.0-100.0); Mean Platelet Volume 8.8 fL (9.4-12.4); Monocytes # (auto) 1.14 K/uL (0.24-0.82); Monocytes % (auto) 7.8 %; Neutrophils # (auto) 12.75 K/uL (1.4-6.5); Neutrophils % (auto) 86.6 %; Platelet Count 168 K/uL (130-400); RDW Coefficient of Variation 13.5 % (11.5-14.5); RDW Standard Deviation 43.3 fL (36.4-46.3); Red Blood Count 4.89 M/uL (4.63-6.08)
[2022-06-06 08:04] LABS: Appearance Urine Clear (Clear); Bacteria Urine Automated Negative (Negative); Bilirubin Urine Negative (Negative); Blood Urine 1+ (Negative); Color Urine Yellow; Glucose Urine UA Negative (Negative); Ketones Urine Trace (Negative); Leukocyte Esterase Urine 1+ (Negative); Nitrite Urine Negative (Negative); Protein Urine Negative (Negative); Specific Gravity Urine 1.026 (1.000-1.030); Urobilinogen Urine Negative (Negative)
[2022-06-06 08:36] LABS: Alanine Aminotransferase 26 U/L (7-52); Alkaline Phosphatase 79 U/L (34-104); Anion Gap 9 (3-11); Aspartate Aminotransferase 22 U/L (13-39); BUN Creatinine Ratio 20.5 (10-20); Bilirubin,Total 1.4 mg/dl (0.2-1.0); Blood Urea Nitrogen 18 mg/dl (6-23); Calcium 9.1 mg/dl (8.5-10.1); Carbon Dioxide 22 mmol/L (21-32); Chloride 104 mmol/L (98-107); Creatinine Clr Calc Pharmacy 77.3 ml/min; Est GFR (Non-African American) 82.9 ml/min; Glucose 131 mg/dl (70-99(Fasting)); Magnesium 1.4 mg/dl (1.7-2.4); Potassium 3.9 mmol/L (3.5-5.1); Sodium 135 mmol/L (136-145); Total Protein 6.4 gm/dl (6.0-8.3); Troponin I High Sensitivity 8.8 pg/ml (0-20)
--- NOTE | 2022-06-06 08:46 | CT Scan Report ---
CT OF THE ABDOMEN AND PELVIS WITHOUT CONTRAST CLINICAL HISTORY: Epigastric abdominal pain. COMPARISON STUDY: CT of the abdomen and pelvis May 15, 2022. TECHNIQUE: Axial images of the abdomen and pelvis were obtained without IV contrast. Images were revi ewed in the axial, sagittal, and coronal planes. Automated exposure control was utilized for the denise dy. A dose lowering technique was utilized adhering to the principles of ALARA. FINDINGS: No pneumatosis, free air or portal venous gas is present. Several small bilateral renal cortez culi are noted. The largest is a 3 mm left renal calculus. There are no ureteral calculi. There is no hydronephrosis. Exam is mildly compromised by motion artifact. A small calcified gallstone within th e gallbladder is present. There is no evidence for acute cholecystitis. Unenhanced images of the live r, spleen, adrenal glands and pancreas are unremarkable. There is no biliary or pancreatic ductal dil atation. There is no evidence for a bowel obstruction. There is mild diffuse colonic wall thickening. There is also mild rectal wall thickening. Pericolonic stranding is noted. A similar pattern was gabriela wn on CT of May 15, 2022. Degree of pericolonic infiltration has slightly increased. An enlarged ileocolic lymph node on image 214 measures 1.4 x 1.2 cm. This was normal in size on prior CT. The ap pendix is normal. There is no abscess. Mild bladder wall thickening is accentuated by underdistention . This is unchanged. IMPRESSION: 1. Findings consistent with a nonspecific pancolitis, slightly increased in degree when compared to C T of May 15, 2022. Mild colonic wall thickening with pericolonic stranding. 2. Mildly enlarged ileocolic lymph node which was normal in size on prior CT. Therefore, this is like ly reactive. A follow-up CT in 6 months to ensure resolution is recommended. 3. Bilateral nephrolithiasis. No ureteral calculi. 4. Small calcified gallstone within the gallbladder. No evidence for acute cholecystitis. ACT 112: Negative or not required by law. Electronically signed by: Sean Littlejohn M.D. 06/06/2022 8:44 AM
[2022-06-06] MEDS ORDERED: FIDAXOMICIN 200 MG TAB PO ONE (09:26)
[2022-06-06] MEDS ORDERED: METOPROLOL SUCC 25MG EXT REL TAB PO STA (10:23)
--- NOTE | 2022-06-06 10:47 | History & Physical Report ---
Date of Service June 06, 2022 Assessment & Plan (1) Clostridium difficile colitis: Plan: Initial C. difficile infection on 05/15 after course of Augmentin for sinus infection, was hospitalized 05/15-05/19 and treated with course of vancomycin completed 05/26. [place] well on discharge up until last 24 hours when he developed fevers, diffuse abdominal crampy pain, and frequent diarrhea consistent with last presentation of C. difficile. He is febrile here with a white count of 14, the lactate and Pro-Stanislaw are within normal limits. CT A/P: Nonspecific pancolitis which is increased from imaging on 05/15 with reactive lymph nodes, mild colonic wall thickening and pericolonic stranding. C. difficile toxin pending, however safe to see him this is a recurrence of his C. difficile given recent infection, will treat this time with fidaxomicin 200 twice daily. Supportive care: Tylenol for pain/fevers, IVF for rehydration, replete electrolytes as needed. Mag 1.4 on admit, added on 2 bags to IVF, recheck in AM. Could consider adding on cholestyramine if diarrhea not starting to slow down by tomorrow. Avoid anti-motility agents such as Immodium. Patient on contact precautions. (2) Sepsis: Plan: Criteria met with WBC 14, tachycardia 105, source of C. difficile infection, he is COVID-positive however has been testing positive persistently since initial infection in March of this year. He does have a chronic cough and sinus congestion which has been present over the past year, no worse today. No urinary symptoms, UA does not appear infected. No suspicion for pulmonary or urinary source contributing to presentation. (3) CAD (coronary artery disease) of artery bypass graft: Plan: 3 vessel CABG in 2010, cardiac cath in 2017 revealed normal LV function and patent grafts. Continue aspirin daily, Plavix every other day. Atorvastatin, metoprolol, isosorbide mononitrate daily, with nitro as needed. (4) GERD without esophagitis: Plan: Continue Pepcid. (5) Type 2 diabetes mellitus: Plan: Diet controlled, last A1c 6.5%. Glucose 131 on BMP. (6) Adjustment disorder with depressed mood: Plan: Continue Lexapro. (7) Moderate obstructive sleep apnea: Plan: Compliant with CPAP at night. (8) Mild reactive airways disease: Plan: Chronic, no acute exacerbation today. Follows w/ Dr. Darden. 2019 PFTs: FVC 73% FEV1 71%, FEV1/FVC 96; FVC and FEV1 both improved to 81% after bronchodilator. Continue Trelegy Ellipta, albuterol, Flonase, and Claritin. Plan Admit to med/surg. SCDs, Lovenox for VTE ppx. Full Code. History of Present Illness Chief Complaint: Abdominal pain, fevers, diarrhea x24 hours Primary Care Provider: Inder Maguire MD Jaya Morfin is a 76-year-old male with past medical history significant for CAD s/p three-vessel CABG in 2010, hypertension, hyperlipidemia, GERD, diet- controlled diabetes, and recent C. difficile infection last month is presenting today with 24 hours of abdominal pain, diarrhea, and fevers. Patient was hospitalized 05/15-05/19 with C. difficile and incidental COVID infection, he completed a course of oral vancomycin on 05/26. He has been feeling well since discharge, however yesterday had developed crampy, diffuse abdominal pain he had when his first C. difficile infection associated with very frequent diarrhea and fevers throughout the day. He has a chronic cough and sinus pressure that is present today, however is a longstanding issue and no worse than usual. Of note, he did have COVID infection in March and tested positive on admission last month, he is again positive for COVID today which I doubt is an active infection. On presentation, he is febrile 38.2 C, tachycardic with an HR of 99, BP moderately elevated at 151/57. SPO2 > 92% on room air. Labs remarkable for WBC of 14 with left shift, magnesium 1.4, T bili 1.4. Pro- Stanislaw and lactate within normal limits, 0.30 and 1.8 respectively. Blood cultures collected in ED. UA w/ epithelial cells, does not appear grossly infected. CXR unremarkable, CT A/P showed findings consistent with a nonspecific pancolitis slightly increased in degree when compared from CT on May 15 with mild colonic wall thickening and pericolonic stranding, mildly enlarged ileocolic lymph node normal on previous CT, likely reactive. Again noted is bilateral nephrolithiasis without ureteral calculi, as well as small calcified gallstone within the gallbladder but no evidence of acute cholecystitis. Allergies Allergy/AdvReac Type Severity Reaction Status Date / Time Iodinated Contrast Media AdvReac Intermediate "FEELING Verified 05/21/22 09:02 FUNNY" Home Medications Medication Instructions Recorded Confirmed Type ascorbic acid (vitamin C) 500 mg 500 mg PO QAM 08/04/18 05/21/22 History chewable tablet (Vitamin C) aspirin 81 mg tablet,delayed 81 mg PO QAM 08/04/18 05/21/22 History release cinnamon bark 500 mg capsule 2 cap PO QAM 08/04/18 05/21/22 History (Cinnamon) garlic 1,000 mg capsule 1,000 mg PO QAM 08/04/18 05/21/22 History glucosam 750 mg-chondroi 100 2 tab PO QAM 08/04/18 05/21/22 History mg-hyalur 1.65 mg-CF borate 108 mg tablet (Biophytis) loratadine 10 mg tablet (Claritin) 10 mg PO QAM 08/04/18 05/21/22 History multivitamin 1 tab PO QAM 08/04/18 05/21/22 History omega-3 acid ethyl esters 1 gram 1 cap PO QAM 02/28/19 05/21/22 History capsule albuterol sulfate 90 mcg/actuation 1 inh inhalation QID PRN shortness 06/16/21 05/21/22 Rx aerosol inhaler of breath or wheezing #8.5 grams atorvastatin 40 mg tablet 40 mg PO PM #90 tabs 10/02/21 05/21/22 Rx clopidogrel 75 mg tablet 75 mg PO Q OTHER DAY #45 tabs 10/02/21 05/21/22 Rx escitalopram oxalate 10 mg tablet 10 mg PO QAM #90 tabs 10/02/21 05/21/22 Rx isosorbide mononitrate 30 mg 30 mg PO QAM #90 tabs 10/02/21 05/21/22 Rx tablet,extended release 24 hr metoprolol succinate 25 mg 25 mg PO QAM #90 tabs 10/02/21 05/21/22 Rx tablet,extended release 24 hr nitroglycerin 0.4 mg sublingual 0.4 mg sublingual UD PRN Chest 10/02/21 05/21/22 Rx tablet Pain #30 tabs fluticasone fur. 100 mcg-umeclid 1 inh inhalation DAILY #3 Inhalers 04/26/22 05/21/22 Rx 62.5 mcg-vilant 25 mcg inhalat.powder (Trelegy Ellipta) fluticasone propionate 50 2 spray intranasal DAILY 04/26/22 05/21/22 History mcg/actuation nasal spray,suspension famotidine 40 mg tablet 40 mg PO QAM 30 days #30 tabs 05/19/22 05/21/22 Rx Past Med/Surg History Medical History (Updated 06/06/22 @ 10:52 by Raven Parirsh PA-C) Borderline diabetes CAD (coronary artery disease) of artery bypass graft Clostridium difficile colitis COVID Depression Diarrhea Esophageal ulcer without bleeding GERD (gastroesophageal reflux disease) Hyperlipidemia Hypertension Obesity Osteoarthritis Sleep apnea CPAP Transient ischemic attack (TIA) 10 YEARS AGO -no deficits, no neurologist URI (upper respiratory infection) Surgical History History of cardiac cath 2010 - [facility] - --> CABG - FOLLOWS W/ DR. RUBALCAVA 2016 - [facility] - NO STENTS/ANGIOPLASTY History of colonoscopy (2015) History of coronary artery bypass graft (2010) 2010 - [facility] - 3 VESSELS - FOLLOWS W/ DR. RUBALCAVA History of esophagogastroduodenoscopy (EGD) History of neck surgery benign lump removed off neck History of surgery LIPOMA EXCISION History of thumb surgery left thumb bone spur removal History of tooth extraction Family History Mother Family history of diabetes mellitus Myocardial infarction Sister Family history of diabetes mellitus Father Myocardial infarction Other Hypertension Kidney stones No family history of adverse response to anesthesia Denies family history of Ovarian cancer Prostate cancer Crohn's disease Breast cancer Lung cancer Colorectal cancer Stroke Social History Smoking Status: Never smoker Second Hand Exposure: No; Hx Alcohol Use: Yes Alcohol type: beer Hx Substance Use: No Preferred Language: Iraqi Communication Ability: Effective Manager Switch Required: No Beliefs That Will Affect Care: Jehovah'S Witness Jehovah'S Witness Beliefs: Protestant. 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 Feels Safe at Home: Yes Childhood Exposure to Second-Hand Smoke: Yes caffeine: No Dental Care, Regularly: Yes Physical Activity Frequency: Daily Seatbelt Use: always Sunscreen Use: No Assistive Devices: None Review of Systems Review of Systems: Constitutional: Fevers and chills at home for the past 24 hours; no weakness, fatigue, myalgias, anorexia, night sweats Eyes: No diplopia, no worsening or blurred vision ENT: normal hearing, no trouble swallowing Respiratory: No cough, sputum, dyspnea at rest or on exertion Cardiovascular: No chest pain, tightness or palpitations Abdomen: Severe, crampy abdominal pain with frequent diarrhea x24 hours, no nausea, vomiting, constipation, melena, hematochezia : Denies dysuria, hematuria, increased urgency/frequency, urinary retention Musculoskeletal: No joint pain, calf pain, swelling Neurologic: No weakness, numbness/tingling, or balance problems Psychiatric: No anxiety or depression Skin: No rash or itch Physical Exam Physical Exam: General: awake, alert, no apparent distress Head: Normocephalic, atraumatic ENT: PERRL, EOMI, no pharyngeal exudate, mucous membranes moist Chest: Clear to auscultation, on room air, no adventitious breath sounds Cardiac: Regular rate and rhythm, no murmur, no JVD, normal peripheral pulses, good capillary refill Abdominal: mildly TTP with palpation, other NABS x 4 quadrants, soft, no rebound, guarding or tenderness Extremities: Normal inspection, no peripheral edema or erythema, calfs nontender to palpation Psych: Normal mood and affect Neuro: AAO x 3, strength intact bilaterally and rated 5/5, no motor deficits, speech is clear, no peripheral sensory deficits Skin: no rash or erythema Results & Data Results & Data ([facility]) Vital Signs (Past 12 Hours) Vital Signs Temp Pulse Pulse Resp BP BP Pulse Ox 06/06/22 10:33 105 H 16 189/85 H 92 06/06/22 09:17 87 19 95 06/06/22 07:24 91 H 94 06/06/22 07:23 92 H 16 93 06/06/22 07:21 92 H 16 151/57 H 94 06/06/22 06:47 38.2 C H 99 H 18 136/71 93 O2 Del Method 06/06/22 10:33 Room Air 06/06/22 09:17 Room Air 06/06/22 07:24 Room Air 06/06/22 07:23 Room Air 06/06/22 07:21 Room Air 06/06/22 06:47 Room Air Laboratory Results Abnormal lab results 06/06/22 06/06/22 06/06/22 Range/Units 07:25 07:25 07:25 WBC 14.70 H (4.8-10.8) K/ul MPV 8.8 L (9.4-12.4) fL Neut # (Auto) 12.75 H (1.4-6.5) K/uL Lymph # (Auto) 0.60 L (1.2-3.4) K/uL [place] # (Auto) 1.14 H (0.24-0.82) K/uL Immature Gran # (Auto) 0.10 H (0.00-0.02) K/uL Sodium 135 L (136-145) mmol/L BUN/Creatinine Ratio 20.5 H (10-20) Glucose 131 H (70-99(Fasting)) mg/dl Magnesium 1.4 L (1.7-2.4) mg/dl Total Bilirubin 1.4 H (0.2-1.0) mg/dl Urine Ketones (Negative) Urine Blood (Negative) Ur Leukocyte Esterase (Negative) Urine RBC (Auto) (0-4) /hpf U Epithel Cells (Auto) (0-5) /lpf SARS-CoV-2, RNA, NAAT POSITIVE A* (NEGATIVE) 06/06/22 Range/Units Unknown WBC (4.8-10.8) K/ul MPV (9.4-12.4) fL Neut # (Auto) (1.4-6.5) K/uL Lymph # (Auto) (1.2-3.4) K/uL [place] # (Auto) (0.24-0.82) K/uL Immature Gran # (Auto) (0.00-0.02) K/uL Sodium (136-145) mmol/L BUN/Creatinine Ratio (10-20) Glucose (70-99(Fasting)) mg/dl Magnesium (1.7-2.4) mg/dl Total Bilirubin (0.2-1.0) mg/dl Urine Ketones Trace H (Negative) Urine Blood 1+ H (Negative) Ur Leukocyte Esterase 1+ H (Negative) Urine RBC (Auto) 5-10 H (0-4) /hpf U Epithel Cells (Auto) 5-10 H (0-5) /lpf SARS-CoV-2, RNA, NAAT (NEGATIVE) Diagnostic Findings Chest X-Ray 06/06/22 06:50 XR chest 1V portable CLINICAL HISTORY: Sepsis. COMPARISON STUDY: Chest radiograph May 15, 2022. FINDINGS: There are median sternotomy wires. Lung volumes are normal. Lungs are clear. There is no pneumothorax or pleural effusion. Cardiomegaly is unchanged. Mediastinal contours are normal. There is no evidence for pulmonary edema. IMPRESSION: No acute cardiopulmonary findings. No change in appearance of the chest. ACT 112: Negative or not required by law. Electronically signed by: Sean Littlejohn M.D. 06/06/2022 7:46 AM Abdomen/Pelvis CT 06/06/22 06:59 CT OF THE ABDOMEN AND PELVIS WITHOUT CONTRAST CLINICAL HISTORY: Epigastric abdominal pain. COMPARISON STUDY: CT of the abdomen and pelvis May 15, 2022. TECHNIQUE: Axial images of the abdomen and pelvis were obtained without IV contrast. Images were reviewed in the axial, sagittal, and coronal planes. Automated exposure control was utilized for the study. A dose lowering technique was utilized adhering to the principles of ALARA. FINDINGS: No pneumatosis, free air or portal venous gas is present. Several small bilateral renal calculi are noted. The largest is a 3 mm left renal calculus. There are no ureteral calculi. There is no hydronephrosis. Exam is mildly compromised by motion artifact. A small calcified gallstone within the gallbladder is present. There is no evidence for acute cholecystitis. Unenhanced images of the liver, spleen, adrenal glands and pancreas are unremarkable. There is no biliary or pancreatic ductal dilatation. There is no evidence for a bowel obstruction. There is mild diffuse colonic wall thickening. There is also mild rectal wall thickening. Pericolonic stranding is noted. A similar pattern was shown on CT of May 15, 2022. Degree of pericolonic infiltration has slightly increased. An enlarged ileocolic lymph node on image 214 measures 1.4 x 1.2 cm. This was normal in size on prior CT. The appendix is normal. There is no abscess. Mild bladder wall thickening is accentuated by underdistention. This is unchanged. IMPRESSION: 1. Findings consistent with a nonspecific pancolitis, slightly increased in degree when compared to CT of May 15, 2022. Mild colonic wall thickening with pericolonic stranding. 2. Mildly enlarged ileocolic lymph node which was normal in size on prior CT. Therefore, this is likely reactive. A follow-up CT in 6 months to ensure resolution is recommended. 3. Bilateral nephrolithiasis. No ureteral calculi. 4. Small calcified gallstone within the gallbladder. No evidence for acute cholecystitis. ACT 112: Negative or not required by law. Electronically signed by: Sean Littlejohn M.D. 06/06/2022 8:44 AM ECG Additional Comments: Normal sinus rhythm Septal infarct (cited on or before 15-MAY-2022) Abnormal ECG When compared with ECG of 15-MAY-2022 19:34, Nonspecific T wave abnormality has replaced inverted T waves in Lateral leads. Code Status & VTE Plan Code Status Full Code. Supervising Physician Co-Signing Physician Notes Patient seen and examined, chart reviewed, case discussed with Raven Parrish and I agree with the assessment and plan as above except as otherwise noted Labs and images reviewed Jaya is seen at the bedside with his . He reports that he has had a recurrence of liquidy diarrhea and abdominal discomfort. He has had a slight lingering cough for several weeks but with no change and no increase shortness of breath. No chest pain. Febrile at presentation. CT with pancolitis. Patient recently diagnosed with C. difficile treated with vancomycin. Abdomen is mildly tender but without rebound/guarding. Nontoxic at bedside. Agree with treatment as C. difficile recurrence, will treat with fidaxomicin rather than va ncomycin. Patient did have initial C. difficile episode this past month after a course of Augmentin. Agree with management above. PG Care Time/CCT Total # of Minutes Spent Total Time Spent with Patient: Total time spent is greater than 50% in coordination of care (as documented) at patient's floor/unit and/or counseling patient: Coding Level of Care Code 89686 Initial Inpt Care Lvl 3 Diagnoses Clostridium difficile colitis A04.72 Sepsis A41.9 CAD (coronary artery disease) of artery bypass graft I25.810 GERD without esophagitis K21.9 Type 2 diabetes mellitus E11.9 Adjustment disorder with depressed mood F43.21 Moderate obstructive sleep apnea G47.33 Mild reactive airways disease J45.909
[2022-06-06] MEDS ORDERED: ACETAMINOPHEN 1,000 MG/100 ML VIAL IV STA (11:13)
[2022-06-06] MEDS: LACTATED RINGER'S 1,000 ML IV SCH (12:04)
[2022-06-06] MEDS: MAGNESIUM SULFATE / D5W 1 GM/100 ML BAG IV SCH ×2 (12:04→13:05)
[2022-06-06 13:06] LABS: Cdiff Antigen Positive
[2022-06-06 13:07] LABS: Cdiff Toxin A+B Positive Cdiff Toxin (Negative)
--- NOTE | 2022-06-06 14:20 | Electrocardiogram Report ---
Test Reason : Blood Pressure : / mmHG Vent. Rate : 090 BPM Atrial Rate : 090 BPM P-R Int : 178 ms QRS Dur : 078 ms QT Int : 328 ms P-R-T Axes : 054 081 105 degrees QTc Int : 401 ms Normal sinus rhythm Septal infarct (cited on or before 15-MAY-2022) Nonspecific T wave abnormality Abnormal ECG When compared with ECG of 15-MAY-2022 19:34, Nonspecific T wave abnormality has replaced inverted T waves in Lateral leads Confirmed by Inder José ([id number]) on 06/06/2022 2:20:33 PM Referred By: Confirmed By:Inder José
[2022-06-06] MEDS ORDERED: ONDANSETRON INJ 2 MG/ML 2 ML VIAL IV PRN (14:59)
[2022-06-06] MEDS ORDERED: ALBUTEROL HFA 8 GM INHALER INH PRN (14:59)
[2022-06-06] MEDS ORDERED: NITROGLYCERIN SL 0.4 MG/TAB TAB SL PRN (14:59)
[2022-06-06] MEDS ORDERED: ALUMINUM/MAGNESIUM SUSP 30 ML UDC PO PRN (14:59)
[2022-06-06] MEDS: ENOXAPARIN INJ 40 MG/0.4 ML SYR SQ SCH (17:22)
[2022-06-06] MEDS: CLOPIDOGREL BISULFATE 75 MG TAB PO SCH (17:23)
[2022-06-06] MEDS: FIDAXOMICIN 200 MG TAB PO SCH (21:22)
[2022-06-06] MEDS: ACETAMINOPHEN 325 MG TAB PO PRN (21:22)
[2022-06-06] MEDS: ATORVASTATIN 40 MG TAB PO SCH (21:22)
[2022-06-07] MEDS: LACTATED RINGER'S 1,000 ML IV SCH ×3 (02:28→15:18)
[2022-06-07 08:33] LABS: Basophils # (auto) 0.03 K/uL (0-0.2); Basophils % (auto) 0.2 %; Eosinophils # (auto) 0.07 K/uL (0-0.50); Eosinophils % (auto) 0.5 %; Hematocrit (blood only) 42.2 % (40.1-51.0); Hemoglobin 14.1 g/dl (14.0-18.0); Immature Granulocytes # (auto) 0.09 K/uL (0.00-0.02); Immature Granulocytes % (auto) 0.6 %; Lymphocytes # (auto) 1.02 K/uL (1.2-3.4); Lymphocytes % (auto) 7.3 %; Mean Corpuscular Hemoglobin 29.1 pg (25.0-34.0); Mean Corpuscular Hgb Conc 33.4 g/dL (32.0-36.0); Mean Platelet Volume 8.8 fL (9.4-12.4); Monocytes # (auto) 1.16 K/uL (0.24-0.82); Monocytes % (auto) 8.4 %; Neutrophils # (auto) 11.52 K/uL (1.4-6.5); Platelet Count 160 K/uL (130-400); RDW Coefficient of Variation 13.8 % (11.5-14.5); RDW Standard Deviation 43.7 fL (36.4-46.3); Red Blood Count 4.85 M/uL (4.63-6.08); White Blood Count 13.89 K/ul (4.8-10.8)
[2022-06-07] MEDS: ACETAMINOPHEN 325 MG TAB PO PRN ×2 (08:38→20:05)
[2022-06-07] MEDS: FLUTICASONE PROPIONATE NA SPR 16 GM BTL SCH (08:39)
[2022-06-07] MEDS: MULTIVITAMIN TAB PO SCH (08:40)
[2022-06-07] MEDS: METOPROLOL SUCC 25MG EXT REL TAB PO SCH (08:40)
[2022-06-07] MEDS: ASCORBIC ACID 500 MG TAB PO SCH (08:40)
[2022-06-07] MEDS: ESCITALOPRAM OXALATE 10 MG TAB PO SCH (08:41)
[2022-06-07] MEDS: FAMOTIDINE 40 MG TABLET PO SCH (08:41)
[2022-06-07] MEDS: OMEGA-3 (PURIFIED FISH OIL) 1 GM CAP PO SCH (08:41)
[2022-06-07] MEDS: ASPIRIN 81 MG ECTAB PO SCH (08:41)
[2022-06-07] MEDS: ISOSORBIDE MONO EXTENDED REL 30 MG TABCR PO SCH (08:41)
[2022-06-07] MEDS: LORATADINE 10 MG TAB PO SCH (08:41)
[2022-06-07] MEDS: FIDAXOMICIN 200 MG TAB PO SCH ×2 (08:42→20:05)
[2022-06-07] MEDS: FLUTICASONE FUROATE 100MCG 14 PUFFS/INHALER INH SCH (08:44)
[2022-06-07] MEDS: UMECLIDINIUM/VILANTEROL 62.5/25MCG 7 PUFFS/INHALER INH SCH (08:44)
[2022-06-07] MEDS ORDERED: NON-FORMULARY MEDICATION (Cinnamon Bark [Cinnamon] 500 mg Capsule) PO SCH (09:00)
[2022-06-07] MEDS ORDERED: NON-FORMULARY MEDICATION (Glucosam-Chond-Hyalu-Cf Borate [Move Free Joint Health] 750 mg-1 PO SCH (09:00)
[2022-06-07 09:10] LABS: BUN Creatinine Ratio 16.9 (10-20); Calcium 8.4 mg/dl (8.5-10.1); Est GFR (African American) 98.4 ml/min; Est GFR (Non-African American) 84.9 ml/min; Magnesium 1.9 mg/dl (1.7-2.4); Potassium 3.5 mmol/L (3.5-5.1)
[2022-06-07] MEDS: ENOXAPARIN INJ 40 MG/0.4 ML SYR SQ SCH (16:18)
--- NOTE | 2022-06-07 18:51 | Hospitalist Progress Note ---
Date of Service June 07, 2022 Assessment & Plan (1) Clostridium difficile colitis: Plan: Initial C. difficile infection on 05/15 after course of Augmentin for sinus infection, was hospitalized 05/15-05/19 and treated with course of vancomycin completed 05/26. [place] well on discharge up until last 24 hours when he developed fevers, diffuse abdominal crampy pain, and frequent diarrhea consistent with last presentation of C. difficile. CT A/P: Nonspecific pancolitis which is increased from imaging on 05/15 with reactive lymph nodes, mild colonic wall thickening and pericolonic stranding. Starting to improve already. Continue fidaxomicin for now. Hopefully this course of treatment will be curative, but would also pipeline referral to gastroenterology to streamline the process in case he fails and fecal transplant is needed Home once diarrhea has slowed down enough and his p.o. intake is able to keep up. (2) Sepsis: Plan: Criteria met with WBC 14, tachycardia 105, source of C. difficile infection, he is COVID-positive however has been testing positive persistently since initial infection in March of this year. Related to C. difficile. Improving. (3) CAD (coronary artery disease) of artery bypass graft: Plan: 3 vessel CABG in 2010, cardiac cath in 2017 revealed normal LV function and patent grafts. Continue aspirin daily, Plavix every other day. Atorvastatin, metoprolol, isosorbide mononitrate daily, with nitro as needed. No cardiac complaints (4) GERD without esophagitis: Plan: Continue Pepcid. (5) Type 2 diabetes mellitus: Plan: Diet controlled, last A1c 6.5%. Sugars have been acceptable here (6) Adjustment disorder with depressed mood: Plan: Continue Lexapro. (7) Moderate obstructive sleep apnea: Plan: Compliant with CPAP at night. (8) Mild reactive airways disease: Plan: Chronic, no acute exacerbation today. Follows w/ Dr. Darden. 2019 PFTs: FVC 73% FEV1 71%, FEV1/FVC 96; FVC and FEV1 both improved to 81% after bronchodilator. Continue Trelegy Ellipta, albuterol, Flonase, and Claritin. Plan Stable on medical, anticipate discharge to home once his diarrhea has improved more. SCDs, Lovenox for VTE ppx. Full Code. Admission and Anticipated Discharge Date Admission Date: June 06, 2022 Subjective Feeling better less belly pain still having a good bit of diarrhea though. Eating and drinking better. Review of Systems Review of Systems: All systems reviewed & are unremarkable except as noted in HPI & below Physical Exam Physical Exam: In general he is awake and alert pleasant no distress. HEENT normocephalic atraumatic mucous membranes moist. Breathing unlabored no accessory muscle use good effort. Abdomen is soft nondistended nontender no guarding or rebound no masses organomegaly. Neuro without focal deficits Results & Data Results & Data ([facility]) Vital Signs (Past 12 Hours) Vital Signs Temp Pulse Pulse Resp BP Pulse Ox O2 Del Method 06/07/22 14:49 98.1 F 69 17 129/71 93 Room Air 06/07/22 08:33 97.9 F 70 18 160/78 H 92 Room Air PG Care Time/CCT Total # of Minutes Spent Total Time Spent with Patient: Total time spent is greater than 50% in coordination of care (as documented) at patient's floor/unit and/or counseling patient: Coding Level of Care Code 22484 Subseq Hosp Care Lvl 3 Diagnoses Clostridium difficile colitis A04.72 Sepsis A41.9 CAD (coronary artery disease) of artery bypass graft I25.810 GERD without esophagitis K21.9 Type 2 diabetes mellitus E11.9 Adjustment disorder with depressed mood F43.21 Moderate obstructive sleep apnea G47.33 Mild reactive airways disease J45.909
[2022-06-07] MEDS: ATORVASTATIN 40 MG TAB PO SCH (20:05)
[2022-06-08] MEDS: LACTATED RINGER'S 1,000 ML IV SCH ×3 (00:45→19:54)
[2022-06-08] MEDS ORDERED: POTASSIUM CHLORIDE CRTAB 20 MEQ TABCR PO STA (08:03)
--- NOTE | 2022-06-08 08:04 | Hospitalist Progress Note ---
Date of Service June 08, 2022 Assessment & Plan (1) Clostridium difficile colitis: Plan: Initial C. difficile infection on 05/15 after course of Augmentin for sinus infection, was hospitalized 05/15-05/19 and treated with course of vancomycin completed 05/26. [place] well on discharge up until last 24 hours when he developed fevers, diffuse abdominal crampy pain, and frequent diarrhea consistent with last presentation of C. difficile. CT A/P: Nonspecific pancolitis which is increased from imaging on 05/15 with reactive lymph nodes, mild colonic wall thickening and pericolonic stranding. Starting to improve already. Continue fidaxomicin for now. Hopefully this course of treatment will be curative, but would also pipeline referral to gastroenterology to streamline the process in case he fails and fecal transplant is needed Home once diarrhea has slowed down enough and his p.o. intake is able to keep up. (2) Sepsis: Plan: Criteria met with WBC 14, tachycardia 105, source of C. difficile infection, he is COVID-positive however has been testing positive persistently since initial infection in March of this year. Related to C. difficile. Improving. (3) CAD (coronary artery disease) of artery bypass graft: Plan: 3 vessel CABG in 2010, cardiac cath in 2017 revealed normal LV function and patent grafts. Continue aspirin daily, Plavix every other day. Atorvastatin, metoprolol, isosorbide mononitrate daily, with nitro as needed. No cardiac complaints (4) GERD without esophagitis: Plan: Continue Pepcid. (5) Type 2 diabetes mellitus: Plan: Diet controlled, last A1c 6.5%. Sugars have been acceptable here (6) Adjustment disorder with depressed mood: Plan: Continue Lexapro. (7) Moderate obstructive sleep apnea: Plan: Compliant with CPAP at night. (8) Mild reactive airways disease: Plan: Chronic, no acute exacerbation today. Follows w/ Dr. Darden. 2019 PFTs: FVC 73% FEV1 71%, FEV1/FVC 96; FVC and FEV1 both improved to 81% after bronchodilator. Continue Trelegy Ellipta, albuterol, Flonase, and Claritin. Plan Stable on medical, anticipate discharge to home once his diarrhea has improved more. SCDs, Lovenox for VTE ppx. Full Code. Admission and Anticipated Discharge Date Admission Date: June 06, 2022 Supervising Physician Co-Signing Physician Notes I personally examined the patient and verified all ortega points of history and exam, discussed case, and agree with decision making with Dr Waller feeling about the same overall - ongoing diarrhea about the same, abdominal pain a bit better vitals noted nad heent nc at mmm breathing unlabored no accessory muscle use good effort. Abdomen soft nondistended may be mild diffuse favor right upper abdominal tenderness no guarding rebound or rigidity Recurrent C. difficile colitis with sepsis present on admissionsepsis improving. Abdominal pain improving. Diarrhea not slowing yetanticipate that it will soon. Continue Dificid. Add cholestyramine. Anticipate home on Dificid. Did ask nurse navigator to streamline GI follow-up in case fecal transplant is required, although hopefully will not be. Otherwise as above Subjective No acute events overnight. This morning, patient sitting at bedside. He reports he has had 4 episodes of diarrhea since midnight. He denies any abdominal pain. He has no other acute concerns. Tolerating breakfast well. Review of Systems Review of Systems: All systems reviewed & are unremarkable except as noted in HPI & below Physical Exam Physical Exam: General: Well-appearing, alert, interactive, and in no acute distress. HEENT: Normocephalic, atraumatic. EOM intact. Good conjugate gaze. Nares patent. Moist mucosal membranes. Neck: Supple. No lymphadenopathy. Normal ROM. CV: Regular rate and rhythm. Normal S1 and S2. No murmurs gallops or rubs. Respiratory: Normal respiratory effort. Lungs clear to auscultation bilaterally. No crackles, rhonchi, or wheezes. Abdomen: Soft, nondistended abdomen. No bruits heard on auscultation. No tenderness to deep palpation. No guarding or rebound. Extremities: Capillary refill <2 sec. 2+ dp equal bilaterally. No pedal edema. Neuro: Alert and oriented x3. Skin: Clean, dry, and intact. No rashes, bruises, or erythema. Results & Data Results & Data ([facility]) Vital Signs (Past 12 Hours) Vital Signs Temp Pulse Resp BP Pulse Ox O2 Del Method 06/08/22 00:18 36.8 C 63 20 158/82 H 95 Room Air Resident Activity Tracking Resident Involvement: Resident Care Provided Care Provided: Adult Hospital Medicine
[2022-06-08] MEDS: ASPIRIN 81 MG ECTAB PO SCH (09:06)
[2022-06-08] MEDS: METOPROLOL SUCC 25MG EXT REL TAB PO SCH (09:06)
[2022-06-08] MEDS: ASCORBIC ACID 500 MG TAB PO SCH (09:06)
[2022-06-08] MEDS: ESCITALOPRAM OXALATE 10 MG TAB PO SCH (09:06)
[2022-06-08] MEDS: LORATADINE 10 MG TAB PO SCH (09:06)
[2022-06-08] MEDS: ISOSORBIDE MONO EXTENDED REL 30 MG TABCR PO SCH (09:06)
[2022-06-08] MEDS: OMEGA-3 (PURIFIED FISH OIL) 1 GM CAP PO SCH (09:06)
[2022-06-08] MEDS: FIDAXOMICIN 200 MG TAB PO SCH ×2 (09:07→21:50)
[2022-06-08] MEDS: FAMOTIDINE 40 MG TABLET PO SCH (09:07)
[2022-06-08] MEDS: CLOPIDOGREL BISULFATE 75 MG TAB PO SCH (09:07)
[2022-06-08] MEDS: MULTIVITAMIN TAB PO SCH (09:07)
[2022-06-08] MEDS: FLUTICASONE PROPIONATE NA SPR 16 GM BTL SCH (09:07)
[2022-06-08] MEDS: FLUTICASONE FUROATE 100MCG 14 PUFFS/INHALER INH SCH (09:07)
[2022-06-08] MEDS: UMECLIDINIUM/VILANTEROL 62.5/25MCG 7 PUFFS/INHALER INH SCH (09:07)
[2022-06-08 11:02] LABS: Basophils # (auto) 0.03 K/uL (0-0.2); Basophils % (auto) 0.5 %; Eosinophils # (auto) 0.32 K/uL (0-0.50); Eosinophils % (auto) 4.8 %; Hematocrit (blood only) 41.9 % (40.1-51.0); Immature Granulocytes # (auto) 0.04 K/uL (0.00-0.02); Immature Granulocytes % (auto) 0.6 %; Lymphocytes # (auto) 1.34 K/uL (1.2-3.4); Lymphocytes % (auto) 20.2 %; Mean Corpuscular Hemoglobin 29.4 pg (25.0-34.0); Mean Corpuscular Hgb Conc 33.4 g/dL (32.0-36.0); Mean Platelet Volume 9.1 fL (9.4-12.4); Monocytes # (auto) 0.75 K/uL (0.24-0.82); Monocytes % (auto) 11.3 %; Neutrophils # (auto) 4.17 K/uL (1.4-6.5); Neutrophils % (auto) 62.6 %; Platelet Count 152 K/uL (130-400); RDW Coefficient of Variation 13.5 % (11.5-14.5); RDW Standard Deviation 43.4 fL (36.4-46.3); Red Blood Count 4.76 M/uL (4.63-6.08); White Blood Count 6.65 K/ul (4.8-10.8)
[2022-06-08] MEDS: CHOLESTYRAMINE LIGHT 4 GM PKT PO SCH ×2 (11:17→21:50)
[2022-06-08 11:30] LABS: BUN Creatinine Ratio 17.3 (10-20); Blood Urea Nitrogen 13 mg/dl (6-23); Carbon Dioxide 25 mmol/L (21-32); Chloride 107 mmol/L (98-107); Creatinine Clr Calc Pharmacy 90.7 ml/min; Est GFR (African American) 102.6 ml/min; Est GFR (Non-African American) 88.5 ml/min; Glucose 140 mg/dl (70-99(Fasting))
[2022-06-08 12:35] LABS: Potassium 3.4 mmol/L (3.5-5.1)
[2022-06-08] MEDS: ENOXAPARIN INJ 40 MG/0.4 ML SYR SQ SCH (16:56)
--- NOTE | 2022-06-08 20:14 | Billing Data ---
Date of Service June 08, 2022 Coding Level of Care Code 80286 Subseq Hosp Care Lvl 3
[2022-06-08] MEDS: ATORVASTATIN 40 MG TAB PO SCH (21:50)
[2022-06-09] MEDS: LACTATED RINGER'S 1,000 ML IV SCH ×2 (05:18→14:22)
[2022-06-09 08:30] LABS: BUN Creatinine Ratio 17.4 (10-20); Calcium 8.1 mg/dl (8.5-10.1); Creatinine Clr Calc Pharmacy 98.6 ml/min; Est GFR (African American) 106.1 ml/min; Est GFR (Non-African American) 91.6 ml/min; Magnesium 1.9 mg/dl (1.7-2.4); Phosphorus 3.3 mg/dl (2.5-4.9); Potassium 3.8 mmol/L (3.5-5.1)
--- NOTE | 2022-06-09 10:03 | Hospitalist Progress Note ---
Date of Service June 09, 2022 Assessment & Plan (1) Clostridium difficile colitis: Plan: Initial C. difficile infection on 05/15 after course of Augmentin for sinus infection, was hospitalized 05/15-05/19 and treated with course of vancomycin completed 05/26. [place] well on discharge up until last 24 hours when he developed fevers, diffuse abdominal crampy pain, and frequent diarrhea consistent with last presentation of C. difficile. CT A/P: Nonspecific pancolitis which is increased from imaging on 05/15 with reactive lymph nodes, mild colonic wall thickening and pericolonic stranding. Starting to improve already. Continue fidaxomicin for now. Hopefully this course of treatment will be curative, but would also pipeline referral to gastroenterology to streamline the process in case he fails and fecal transplant is needed Home once diarrhea has slowed down enough and his p.o. intake is able to keep up. (2) Sepsis: Plan: Criteria met with WBC 14, tachycardia 105, source of C. difficile infection, he is COVID-positive however has been testing positive persistently since initial infection in March of this year. Related to C. difficile. Improving. (3) CAD (coronary artery disease) of artery bypass graft: Plan: 3 vessel CABG in 2010, cardiac cath in 2017 revealed normal LV function and patent grafts. Continue aspirin daily, Plavix every other day. Atorvastatin, metoprolol, isosorbide mononitrate daily, with nitro as needed. No cardiac complaints (4) GERD without esophagitis: Plan: Continue Pepcid. (5) Type 2 diabetes mellitus: Plan: Diet controlled, last A1c 6.5%. Sugars have been acceptable here (6) Adjustment disorder with depressed mood: Plan: Continue Lexapro. (7) Moderate obstructive sleep apnea: Plan: Compliant with CPAP at night. (8) Mild reactive airways disease: Plan: Chronic, no acute exacerbation today. Follows w/ Dr. Darden. 2018 PFTs: FVC 73% FEV1 71%, FEV1/FVC 96; FVC and FEV1 both improved to 81% after bronchodilator. Continue Trelegy Ellipta, albuterol, Flonase, and Claritin. Plan Stable on medical, anticipate discharge to home once his diarrhea has improved more. SCDs, Lovenox for VTE ppx. Full Code. Admission and Anticipated Discharge Date Admission Date: June 06, 2022 Supervising Physician Co-Signing Physician Notes The patient was seen and examined by me. Case discussed with resident physician. Agree with assessment and plan. Lungs are clear to auscultation percussion. Cardiac rhythm regular with normal S1 and S2. Abdomen soft and nondistended. Bowel sounds are active. Continue treatment with fidaxomicin Subjective No acute events overnight. This morning, patient seated at bedside. He reports he, again, had 4 episodes of watery diarrhea since midnight. He denies abdominal pain. He is otherwise tolerating meals well. Review of Systems Review of Systems: All systems reviewed & are unremarkable except as noted in HPI & below Physical Exam Physical Exam: General: Well-appearing, alert, interactive, and in no acute distress. HEENT: Normocephalic, atraumatic. EOM intact. Good conjugate gaze. Nares patent. Moist mucosal membranes. Neck: Supple. No lymphadenopathy. Normal ROM. CV: Regular rate and rhythm. Normal S1 and S2. No murmurs gallops or rubs. Respiratory: Normal respiratory effort. Lungs clear to auscultation bilaterally. No crackles, rhonchi, or wheezes. Abdomen: Soft, nondistended abdomen. No bruits heard on auscultation. No tenderness to deep palpation. No guarding or rebound. Extremities: Capillary refill <2 sec. 2+ dp equal bilaterally. No pedal edema. Neuro: Alert and oriented x3. Skin: Clean, dry, and intact. No rashes, bruises, or erythema. Results & Data Results & Data ([facility]) Vital Signs (Past 12 Hours) Vital Signs Temp Pulse Resp BP Pulse Ox O2 Del Method 06/09/22 07:19 36.7 C 66 16 190/92 H 94 Room Air 06/08/22 23:08 36.7 C 66 20 176/89 H 95 Room Air Resident Activity Tracking Resident Involvement: Resident Care Provided Care Provided: Adult [facility] Medicine
[2022-06-09] MEDS: ESCITALOPRAM OXALATE 10 MG TAB PO SCH (10:05)
[2022-06-09] MEDS: ASCORBIC ACID 500 MG TAB PO SCH (10:05)
[2022-06-09] MEDS: METOPROLOL SUCC 25MG EXT REL TAB PO SCH (10:05)
[2022-06-09] MEDS: ASPIRIN 81 MG ECTAB PO SCH (10:05)
[2022-06-09] MEDS: LORATADINE 10 MG TAB PO SCH (10:05)
[2022-06-09] MEDS: FAMOTIDINE 40 MG TABLET PO SCH (10:05)
[2022-06-09] MEDS: MULTIVITAMIN TAB PO SCH (10:05)
[2022-06-09] MEDS: OMEGA-3 (PURIFIED FISH OIL) 1 GM CAP PO SCH (10:05)
[2022-06-09] MEDS: ISOSORBIDE MONO EXTENDED REL 30 MG TABCR PO SCH (10:05)
[2022-06-09] MEDS: FLUTICASONE FUROATE 100MCG 14 PUFFS/INHALER INH SCH (10:06)
[2022-06-09] MEDS: FLUTICASONE PROPIONATE NA SPR 16 GM BTL SCH (10:07)
[2022-06-09] MEDS: UMECLIDINIUM/VILANTEROL 62.5/25MCG 7 PUFFS/INHALER INH SCH (10:07)
[2022-06-09] MEDS: CHOLESTYRAMINE LIGHT 4 GM PKT PO SCH ×2 (10:07→21:24)
[2022-06-09] MEDS: FIDAXOMICIN 200 MG TAB PO SCH ×2 (10:20→21:35)
--- NOTE | 2022-06-09 14:04 | Billing Data ---
Date of Service June 09, 2022 Coding Level of Care Code 77425 Subseq Hosp Care Lvl 2
[2022-06-09] MEDS: ENOXAPARIN INJ 40 MG/0.4 ML SYR SQ SCH (17:07)
[2022-06-09] MEDS: ATORVASTATIN 40 MG TAB PO SCH (21:24)
[2022-06-10] MEDS: LACTATED RINGER'S 1,000 ML IV SCH ×2 (00:13→09:11)
--- NOTE | 2022-06-10 08:45 | Hospitalist Progress Note ---
Date of Service June 10, 2022 Assessment & Plan (1) Clostridium difficile colitis: Plan: Initial C. difficile infection on 05/15 after course of Augmentin for sinus infection, was hospitalized 05/15-05/19 and treated with course of vancomycin completed 05/26. [place] well on discharge up until last 24 hours when he developed fevers, diffuse abdominal crampy pain, and frequent diarrhea consistent with last presentation of C. difficile. CT A/P: Nonspecific pancolitis which is increased from imaging on 05/15 with reactive lymph nodes, mild colonic wall thickening and pericolonic stranding. Starting to improve already. Continue fidaxomicin for now. Hopefully this course of treatment will be curative, but would also pipeline referral to gastroenterology to streamline the process in case he fails and fecal transplant is needed IVF stopped. Consider discharge home tomorrow on fidaxomicin, as diarrhea will have ceased >24 hours as of this evening (2) Sepsis: Plan: Criteria met with WBC 14, tachycardia 105, source of C. difficile infection, he is COVID-positive however has been testing positive persistently since initial infection in March of this year. Related to C. difficile. Improving. (3) CAD (coronary artery disease) of artery bypass graft: Plan: 3 vessel CABG in 2010, cardiac cath in 2017 revealed normal LV function and patent grafts. Continue aspirin daily, Plavix every other day. Atorvastatin, metoprolol, isosorbide mononitrate daily, with nitro as needed. No cardiac complaints (4) GERD without esophagitis: Plan: Continue Pepcid. (5) Type 2 diabetes mellitus: Plan: Diet controlled, last A1c 6.5%. Sugars have been acceptable here (6) Adjustment disorder with depressed mood: Plan: Continue Lexapro. (7) Moderate obstructive sleep apnea: Plan: Compliant with CPAP at night. (8) Mild reactive airways disease: Plan: Chronic, no acute exacerbation today. Follows w/ Dr. Darden. 2019 PFTs: FVC 73% FEV1 71%, FEV1/FVC 96; FVC and FEV1 both improved to 81% after bronchodilator. Continue Trelegy Ellipta, albuterol, Flonase, and Claritin. Plan Stable on medical, anticipate discharge to home once his diarrhea has improved more. SCDs, Lovenox for VTE ppx. Full Code. Admission and Anticipated Discharge Date Admission Date: June 06, 2022 Subjective No acute events overnight. Patient is awake and seated at bedside on arrival this morning. He has not had an episode of diarrhea since last evening. He denies shortness of breath, chest pain, abdominal pain, nausea, or vomiting. Review of Systems Review of Systems: All systems reviewed & are unremarkable except as noted in HPI & below Physical Exam Physical Exam: General: Well-appearing, alert, interactive, and in no acute distress. HEENT: Normocephalic, atraumatic. EOM intact. Good conjugate gaze. Nares patent. Moist mucosal membranes. Neck: Supple. No lymphadenopathy. Normal ROM. CV: Regular rate and rhythm. Normal S1 and S2. No murmurs gallops or rubs. Respiratory: Normal respiratory effort. Lungs clear to auscultation bilaterally. No crackles, rhonchi, or wheezes. Abdomen: Soft, nondistended abdomen. No bruits heard on auscultation. No tenderness to deep palpation. No guarding or rebound. Extremities: Capillary refill <2 sec. 2+ dp equal bilaterally. No pedal edema. Neuro: Alert and oriented x3. Skin: Clean, dry, and intact. No rashes, bruises, or erythema. Results & Data Results & Data ([facility]) Vital Signs (Past 12 Hours) Vital Signs Temp Pulse Resp BP BP Pulse Ox O2 Del Method 06/10/22 07:47 182/95 H 06/10/22 07:45 36.8 C 69 17 184/92 H 96 Room Air 06/09/22 22:13 36.6 C 66 18 185/89 H 97 Room Air Resident Activity Tracking Resident Involvement: Resident Care Provided Care Provided: Adult Hospital Medicine
[2022-06-10] MEDS: CLOPIDOGREL BISULFATE 75 MG TAB PO SCH (08:52)
[2022-06-10] MEDS: FAMOTIDINE 40 MG TABLET PO SCH (08:52)
[2022-06-10] MEDS: OMEGA-3 (PURIFIED FISH OIL) 1 GM CAP PO SCH (08:52)
[2022-06-10 08:53] LABS: BUN Creatinine Ratio 17.3 (10-20); Creatinine Clr Calc Pharmacy 90.7 ml/min; Est GFR (African American) 102.6 ml/min; Est GFR (Non-African American) 88.5 ml/min; Magnesium 1.9 mg/dl (1.7-2.4); Phosphorus 3.6 mg/dl (2.5-4.9); Potassium 4.3 mmol/L (3.5-5.1)
[2022-06-10] MEDS: ESCITALOPRAM OXALATE 10 MG TAB PO SCH (08:53)
[2022-06-10] MEDS: ASPIRIN 81 MG ECTAB PO SCH (08:53)
[2022-06-10] MEDS: ISOSORBIDE MONO EXTENDED REL 30 MG TABCR PO SCH (08:53)
[2022-06-10] MEDS: METOPROLOL SUCC 25MG EXT REL TAB PO SCH (08:53)
[2022-06-10] MEDS: LORATADINE 10 MG TAB PO SCH (08:53)
[2022-06-10] MEDS: MULTIVITAMIN TAB PO SCH (08:53)
[2022-06-10] MEDS: ASCORBIC ACID 500 MG TAB PO SCH (08:53)
[2022-06-10] MEDS: UMECLIDINIUM/VILANTEROL 62.5/25MCG 7 PUFFS/INHALER INH SCH (08:54)
[2022-06-10] MEDS: FLUTICASONE PROPIONATE NA SPR 16 GM BTL SCH (08:56)
[2022-06-10] MEDS: FLUTICASONE FUROATE 100MCG 14 PUFFS/INHALER INH SCH (08:56)
[2022-06-10] MEDS: CHOLESTYRAMINE LIGHT 4 GM PKT PO SCH ×2 (08:57→21:29)
[2022-06-10] MEDS: FIDAXOMICIN 200 MG TAB PO SCH ×2 (09:11→21:34)
--- NOTE | 2022-06-10 15:26 | Billing Data ---
Date of Service June 10, 2022 Coding Level of Care Code 19299 Subseq Hosp Care Lvl 2
--- NOTE | 2022-06-10 15:26 | Communication Note ---
Date of Service: June 10, 2022 The patient was seen and examined by me. Case discussed with resident physician. Agree with assessment and plan. He is feeling better. Mild hypokalemia has been corrected. Hopefully he can go home tomorrow, June 11, on fidaxomicin.
[2022-06-10] MEDS: ACETAMINOPHEN 325 MG TAB PO PRN (16:00)
[2022-06-10] MEDS: ENOXAPARIN INJ 40 MG/0.4 ML SYR SQ SCH (16:58)
[2022-06-10] MEDS: ATORVASTATIN 40 MG TAB PO SCH (21:29)
[2022-06-11] MEDS ORDERED: FIDAXOMICIN 200 MG TAB PO SCH
[2022-06-11] MEDS: MULTIVITAMIN TAB PO SCH (08:06)
[2022-06-11] MEDS: LORATADINE 10 MG TAB PO SCH (08:06)
[2022-06-11] MEDS: ASCORBIC ACID 500 MG TAB PO SCH (08:06)
[2022-06-11] MEDS: FAMOTIDINE 40 MG TABLET PO SCH (08:06)
[2022-06-11] MEDS: FLUTICASONE FUROATE 100MCG 14 PUFFS/INHALER INH SCH (08:06)
[2022-06-11] MEDS: UMECLIDINIUM/VILANTEROL 62.5/25MCG 7 PUFFS/INHALER INH SCH (08:06)
[2022-06-11] MEDS: ISOSORBIDE MONO EXTENDED REL 30 MG TABCR PO SCH (08:06)
[2022-06-11] MEDS: ESCITALOPRAM OXALATE 10 MG TAB PO SCH (08:06)
[2022-06-11] MEDS: METOPROLOL SUCC 25MG EXT REL TAB PO SCH (08:06)
[2022-06-11] MEDS: OMEGA-3 (PURIFIED FISH OIL) 1 GM CAP PO SCH (08:06)
[2022-06-11] MEDS: FLUTICASONE PROPIONATE NA SPR 16 GM BTL SCH (08:06)
[2022-06-11] MEDS: ASPIRIN 81 MG ECTAB PO SCH (08:06)
[2022-06-11 08:44] LABS: Anion Gap 6 (3-11); BUN Creatinine Ratio 19.8 (10-20); Blood Urea Nitrogen 17 mg/dl (6-23); Calcium 9.1 mg/dl (8.5-10.1); Carbon Dioxide 26 mmol/L (21-32); Chloride 103 mmol/L (98-107); Creatinine Clr Calc Pharmacy 78.2 ml/min; Est GFR (African American) 96.9 ml/min; Est GFR (Non-African American) 83.6 ml/min; Glucose 103 mg/dl (70-99(Fasting)); Magnesium 2.1 mg/dl (1.7-2.4); Phosphorus 3.4 mg/dl (2.5-4.9); Sodium 135 mmol/L (136-145)
[2022-06-11] MEDS: CHOLESTYRAMINE LIGHT 4 GM PKT PO SCH (10:56)
[2022-06-11] MEDS: FIDAXOMICIN 200 MG TAB PO SCH ×2 (10:56→17:12)
[2022-06-11] MEDS: ENOXAPARIN INJ 40 MG/0.4 ML SYR SQ SCH (16:16)
--- NOTE | 2022-06-11 16:38 | Discharge Summary ---
Date of Service June 11, 2022 Admission HPI Per Admitting Provider Jaya Morfin is a 76-year-old male with past medical history significant for CAD s/p three-vessel CABG in 2010, hypertension, hyperlipidemia, GERD, diet- controlled diabetes, and recent C. difficile infection last month is presenting today with 24 hours of abdominal pain, diarrhea, and fevers. Patient was hospitalized 05/15-05/19 with C. difficile and incidental COVID infection, he completed a course of oral vancomycin on 05/26. He has been feeling well since discharge, however yesterday had developed crampy, diffuse abdominal pain he had when his first C. difficile infection associated with very frequent diarrhea and fevers throughout the day. He has a chronic cough and sinus pressure that is present today, however is a longstanding issue and no worse than usual. Of note, he did have COVID infec tion in March and tested positive on admission last month, he is again positive for COVID today which I doubt is an active infection. On presentation, he is febrile 38.2 C, tachycardic with an HR of 99, BP moderately elevated at 151/57. SPO2 > 92% on room air. Labs remarkable for WBC of 14 with left shift, magnesium 1.4, T bili 1.4. Pro- Stanislaw and lactate within normal limits, 0.30 and 1.8 respectively. Blood cultures collected in ED. UA w/ epithelial cells, does not appear grossly infected. CXR unremarkable, CT A/P showed findings consistent with a nonspecific pancolitis slightly increased in degree when compared from CT on May 15 with mild colonic wall thickening and pericolonic stranding, mildly enlarged ileocolic lymph node normal on previous CT, likely reactive. Again noted is bilateral nephrolithiasis without ureteral calculi, as well as small calcified gallstone within the gallbladder but no evidence of acute cholecystitis. Admission Exam Per Admitting Provider General: awake, alert, no apparent distress Head: Normocephalic, atraumatic ENT: PERRL, EOMI, no pharyngeal exudate, mucous membranes moist Chest: Clear to auscultation, on room air, no adventitious breath sounds Cardiac: Regular rate and rhythm, no murmur, no JVD, normal peripheral pulses, good capillary refill Abdominal: mildly TTP with palpation, other NABS x 4 quadrants, soft, no rebound, guarding or tenderness Extremities: Normal inspection, no peripheral edema or erythema, calfs nontender to palpation Psych: Normal mood and affect Neuro: AAO x 3, strength intact bilaterally and rated 5/5, no motor deficits, speech is clear, no peripheral sensory deficits Skin: no rash or erythema Principal Diagnosis C. difficile diarrhea Discharge Exam General: Well-appearing, alert, interactive, and in no acute distress. HEENT: Normocephalic, atraumatic. EOM intact. Good conjugate gaze. Nares patent. Moist mucosal membranes. Neck: Supple. No lymphadenopathy. Normal ROM. CV: Regular rate and rhythm. Normal S1 and S2. No murmurs gallops or rubs. Respiratory: Normal respiratory effort. Lungs clear to auscultation bilaterally. No crackles, rhonchi, or wheezes. Abdomen: Soft, nondistended abdomen. No bruits heard on auscultation. No tenderness to deep palpation. No guarding or rebound. Extremities: Capillary refill <2 sec. 2+ dp equal bilaterally. No pedal edema. Neuro: Alert and oriented x3. Skin: Clean, dry, and intact. No rashes, bruises, or erythema. Discharge Data Allergies Allergy/AdvReac Type Severity Reaction Status Date / Time Iodinated Contrast Media AdvReac Intermediate "FEELING Verified 06/06/22 15:11 FUNNY" Consultations 06/06/22 10:54 ED Decision to Admit Stat Ordered Studies 06/06/22 06:59 CT abd pelvis wo con Stat Hospital Course (1) Clostridium difficile colitis: Initial C. difficile infection on 05/15 after course of Augmentin for sinus infection, was hospitalized 05/15-05/19 and treated with course of vancomycin completed 05/26. [place] well on discharge up until last 24 hours when he developed fevers, diffuse abdominal crampy pain, and frequent diarrhea consistent with last prese ntation of C. difficile. CT A/P: Nonspecific pancolitis which is increased from imaging on 05/15 with reactive lymph nodes, mild colonic wall thickening and pericolonic stranding. Started on fidaxomicin. Improved with no diarrhea for 48hrs before discharge. - Sent home on remaining 5-day course of twice daily fidaxomicin 200 mg. Outpatient follow-up tentatively scheduled with Stephany COLLINS. (2) Sepsis: Criteria met with WBC 14, tachycardia 105, source of C. difficile infection, he is COVID-positive however has been testing positive persistently since init ial infection in March of this year. Related to C. difficile. Resolved. (3) CAD (coronary artery disease) of artery bypass graft: 3 vessel CABG in 2010, cardiac cath in 2017 revealed normal LV function and patent grafts. Continued home meds- aspirin daily, Plavix every other day. Atorvastatin, metoprolol, isosorbide mononitrate daily, with nitro as needed. (4) GERD without esophagitis: Continue Pepcid. (5) Type 2 diabetes mellitus: Diet controlled, last A1c 6.5%. Sugars have been acceptable here (6) Adjustment disorder with depressed mood: Continue Lexapro. (7) Moderate obstructive sleep apnea: Compliant with CPAP at night. (8) Mild reactive airways disease: Chronic, no acute exacerbation for duration of stay. Follows w/ Dr. Darden. 2019 PFTs: FVC 73% FEV1 71%, FEV1/FVC 96; FVC and FEV1 both improved to 81% after bronchodilator. Continue Trelegy Ellipta, albuterol, Flonase, and Claritin. Total Time Total Time Spent Total Time Spent (In Minutes): 30 Discharge Plan Discharge Items Patient Disposition: Home - Self-Care Reason For Visit: C DIFF RECURRENCE Discharge Diagnosis: Recurrent C. difficile Activity: Per Instructions section Non-emergency contact: Primary Care Provider and Back End Web Developer Call non-emergency contact if: you have any medication questions and your symptoms worsen Follow-up/Referrals: Carlitos Huber DO [Physician] - 06/18/22 2:40 pm Inder Maguire MD [Primary Care Provider] - 06/22/22 10:30 am Diet: Regular Addtl Attending Provider Instructions: Dear Jaya, You were brought to the hospital for management of your severe, watery diarrhea. You were admitted to the hospital for further management of what was discovered to be a C. difficile infection. We treated you with antibiotics and were given IV fluids to help replace the fluids you lost to the diarrhea, which we continued until your diarrhea stopped. We then kept you for additional day to ensure that your diarrhea did not recur, which it did not. Therefore, we feel that you are ready to be safely discharged home. Medications We added the following medication to your medication list. Please take as instructed unless otherwise directed by your primary care physician or specialist. * A prescription for fidaxomicin, or Dificid, has been sent directly to you and should arrive via FedEx tomorrow morning. Please take fidaxomicin 200 mg twice daily for 5 days. This should bring your total antibiotics course to 10 days. We are also sending you home with a backup dose of fidaxomicin for tomorrow, in the event that your FedEx postage with your prescription does not arrive in time for tomorrow's dose. You may take as instructed above. Follow-up care * An appointment with your primary care provider (PCP), Dr. Inder Maguire, will be scheduled for you by our hospital nursing scheduler. If you do not hear from his clinic in the next 2-3 business days, you may call his office at [phone]. * Our hospital nursing scheduler is also in the process of making an appointment with [facility] for outpatient follow-up. If you do not hear from them in the next 2-3 business days, you may call the office at [phone]. Please try to make all of your follow-up appointments. If you are unable to attend a particular appointment, please call them to reschedule. It is important that you not let your follow-up care lapse as you continue to recover. It has been our pleasure to care for you at [facility]. We wish you all the best in your continued recovery. If you have any questions or concerns about your stay, you may reach out to us at [phone]. Pending Studies at Discharge: No Stand-Alone Forms: [facility], Smoking Cessation Medications and DC Order Prescriptions: Continued atorvastatin 40 mg tablet 40 mg PO PM Qty: 90 3RF clopidogrel 75 mg tablet 75 mg PO Q OTHER DAY Qty: 45 3RF escitalopram oxalate 10 mg tablet 10 mg PO QAM Qty: 90 3RF isosorbide mononitrate 30 mg tablet extended release 24 hr 30 mg PO QAM Qty: 90 3RF metoprolol succinate 25 mg tablet extended release 24 hr 25 mg PO QAM Qty: 90 3RF nitroglycerin 0.4 mg tablet, sublingual 0.4 mg Sublingual UD PRN (Reason: Chest Pain) Qty: 30 3RF albuterol sulfate 90 mcg/actuation HFA aerosol inhaler 1 inh inhalation QID PRN (Reason: shortness of breath or wheezing) Qty: 8.5 4RF omega-3 acid ethyl esters 1 gram capsule 1 cap PO QAM fluticasone propionate 50 mcg/actuation spray,suspension 2 spray intranasal DAILY Rx Instructions: administer into each nostril Trelegy Ellipta 100-62.5-25 mcg blister with device 1 inh inhalation DAILY Qty: 3 3RF multivitamin Tablet 1 tab PO QAM aspirin 81 mg Tablet,Delayed Release (Dr/Ec) 81 mg PO QAM garlic 1,000 mg Capsule 1,000 mg PO QAM ascorbic acid (vitamin C) [Vitamin C] 500 mg Tablet,Chewable 500 mg PO QAM loratadine [Claritin] 10 mg Tablet 10 mg PO QAM cinnamon bark [Cinnamon] 500 mg Capsule 2 cap PO QAM [employer] 750 mg-100 mg- 1.65 mg-108 mg Tablet 2 tab PO QAM famotidine 40 mg Tablet 40 mg PO QAM 30 Days Qty: 30 0RF acetaminophen [Tylenol Extra Strength] 500 mg Tablet 1,000 mg PO Q6H PRN (Reason: Fever Or Pain) Discharge Orders: Discharge Order (Routine); Ordered 06/11/22 Ordered By: Yohan Silver/Other Patient Handouts: What Is C. Diff? Admission Data Admit Date/Time: 06/06/22 10:56 Attending Provider: Farzaneh Segovia Admit Provider: Gregory Gross Primary Care Provider: Inder Maguire Other Providers: Gregory Gross ; Janusz Hodges Other Interventions: Discharge Summary Assessment (RN) Last Done: 06/11/22 17:16 Supervising Physician Co-Signing Physician Notes Resident Physician Supervision Note: I independently interviewed and examined the patient and verified the ortega history and physical, reviewed labs and image studies and agree with resident findings and care plan. Resident Activity Tracking Resident Involvement: Resident Care Provided Care Provided: Adult Hospital Medicine
== END 2022-06-11 18:30 | disposition home or self-care (01) | DRG 872 ==
LOC: ED 06:43 → SUATTDRO 10:56 → EDINP 10:56 → 3N 14:59

== ENCOUNTER 2024-12-06 09:12 | Observation (INO) ==
--- NOTE | 2024-12-06 09:40 | Emergency Department Note ---
History of Present Illness General Chief Complaint: Chest Pain Stated Complaint: CHEST PAIN Time Seen by Provider: 12/06/24 09:27 History of Present Illness Provider Complaint: chest pain Time: 07:45 Duration: now resolved Onset: during rest Pain Location: substernal, left chest and right chest Pain Radiation: jaw/teeth Severity: moderate Quality: + tightness Relieved By: + nitroglycerin Exacerbated By: + nothing Context: no recent illness, no recent surgery, no recent travel, no trauma/injury or no history of DVT/PE Associated symptoms: + diaphoresis; no nausea, no vomiting, no dyspnea, no palpitations, no fever, no cough or no leg swelling Treatments prior to arrival: aspirin and nitroglycerin Home Medications Medication Instructions Recorded Confirmed Type aspirin 81 mg tablet,delayed 81 mg PO HS 08/04/18 12/06/24 History release loratadine 10 mg tablet (Claritin) 10 mg PO QAM 08/04/18 12/06/24 History multivitamin 1 tab PO QAM 08/04/18 12/06/24 History acetaminophen 500 mg tablet 1,000 mg PO Q6H PRN Fever Or Pain 06/06/22 12/06/24 History (Tylenol Extra Strength) azelastine 137 mcg (0.1 %) nasal 1 spray intranasal BID 06/30/24 12/06/24 History spray tamsulosin 0.4 mg capsule (Flomax) 0.4 mg PO QAM #90 caps 07/09/24 12/06/24 Rx fluticasone fur. 100 mcg-umeclid 1 inh inhalation QAM #90 ea 08/11/24 12/06/24 Rx 62.5 mcg-vilant 25 mcg inhalat.powder (Trelegy Ellipta) clopidogrel 75 mg tablet (Plavix) 75 mg PO Q2D #45 tabs 09/29/24 12/06/24 Rx escitalopram oxalate 10 mg tablet 10 mg PO QAM #90 tabs 09/29/24 12/06/24 Rx (Lexapro) nitroglycerin 0.4 mg sublingual 0.4 mg sublingual UD PRN Chest 09/29/24 12/06/24 Rx tablet Pain #25 tabs olopatadine 0.2 % eye drops 1 drp ophthalmic (eye) BID 10/19/24 12/06/24 History (Pataday Once Daily Relief) atorvastatin 40 mg tablet 40 mg PO HS #90 tabs 11/03/24 12/06/24 Rx esomeprazole magnesium 40 mg 40 mg PO QAM #90 caps 11/03/24 12/06/24 Rx capsule,delayed release (Nexium) isosorbide mononitrate 60 mg 60 mg PO QAM #90 tabs 11/03/24 12/06/24 Rx tablet,extended release 24 hr metoprolol succinate 25 mg 25 mg PO QAM #90 tabs 11/03/24 12/06/24 Rx tablet,extended release 24 hr budesonide 0.5 mg/2 mL suspension 0.5 mg irrigation BID 12/06/24 12/06/24 History for nebulization Allergies Allergy/AdvReac Type Severity Reaction Status Date / Time Iodinated Contrast Media AdvReac Intermediate "FEELING Verified 10/27/24 06:33 FUNNY" Past Med/Surg History Problem List (Updated 12/06/24 @ 11:19 by Jw Colmenares MD) Chest pain (Acute) Progressive angina Dysphagia Bladder carcinoma Chronic stable angina Bladder tumor BPH NOS w ur obs/LUTS Hematuria, microscopic Squamous cell carcinoma of left upper extremity Hydrocele Left knee DJD Changing skin lesion Current use of proton pump inhibitor Nasal polyposis Chronic sinusitis Leukocytosis (Acute) Skin change Exertional dyspnea History of colon polyps Mild reactive airways disease Stable, on trelegy Colon polyps (Acute) Enlarged prostate without lower urinary tract symptoms (luts) (Acute) Moderate obstructive sleep apnea Allergic rhinitis Osteoarthritis (Acute) Diverticulosis of colon (Acute) Esophageal dyskinesia (Acute) History of gastroesophageal reflux (GERD) (Acute) Inguinal hernia (Acute) Internal hemorrhoids (Acute) Metabolic disorder (Acute) Nephrolithiasis (Acute) Periodic limb movement disorder (Acute) Adjustment disorder with depressed mood (Acute) CAD (coronary artery disease) of artery bypass graft (Acute) s/p CABG (2010) Carotid atherosclerosis (Acute) Type 2 diabetes mellitus (Acute) Prediabetes GERD without esophagitis (Acute) Hyperlipidemia (Acute) Hypertension (Acute) Borderline diabetes Medical History On anticoagulant therapy Esophageal dyskinesia CAD (coronary artery disease) History of colon polyps Periodic limb movement disorder Inguinal hernia no issues Exertional dyspnea History of dysphagia "still has occasionally" Diverticulosis of colon Chronic stable angina Chronic sinusitis Bladder cancer initially dx 08/2023, "low grade" Hx-TIA (transient ischemic attack) approx 2013 > no residual effects > Plavix for this Mild reactive airways disease well controlled per pt; reason for inhaler Hx of Clostridium difficile infection x 3 episodes 2021 diarrhea since resolved BPH (benign prostatic hyperplasia) Hx of squamous cell carcinoma of skin removed, no other tx Carotid artery stenosis Stable, <50% ICA stenosis bilaterally per 2018 carotid duplex Prediabetes diet controlled Hx of renal calculi History of COVID-19 Covid positive 04/17/22 (home test) and 06/06/22 ([facility]), no symptoms, resolved Osteoarthritis GERD (gastroesophageal reflux disease) Depression Hypertension Hyperlipidemia Sleep apnea CPAP (compliant) Surgical History Hx of left cataract extraction (09/08/24) History of transurethral resection of bladder tumor (TURBT) 08/2023, 08/2024 Dr Canas Hx of colonoscopy with polypectomy ~2020 Hx of squamous cell carcinoma excision right arm x 2 procedures, no other treatment History of thumb surgery Left thumb bone spur removal History of neck surgery Benign lump removed off neck History of tooth extraction History of esophagogastroduodenoscopy (EGD) w/ dilation 11/2023 w/ dilation 07/2024 History of cardiac cath [facility] > CABG [facility] > no stents History of coronary artery bypass graft (2010) CABG x3, [place], follow with Dr. Painter at [facility] Family History Mother Family history of diabetes mellitus Myocardial infarction Sister Family history of diabetes mellitus Father Myocardial infarction Other Hypertension Kidney stones No family history of adverse response to anesthesia Denies family history of Ovarian cancer Prostate cancer Crohn's disease Breast cancer Lung cancer Colorectal cancer Stroke Social History Smoking Status: Never smoker Second Hand Exposure: No; Do You Dip or Chew Tobacco: No; Hx Alcohol Use: Yes Alcohol type: beer Hx Substance Use: No Preferred Language: Korean Communication Ability: Effective [employer] Lawyer Required: No Beliefs That Will Affect Care: None 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 Feels Safe at Home: Yes Childhood Exposure to Second-Hand Smoke: Yes caffeine: No Dental Care, Regularly: Yes Physical Activity Frequency: Daily Seatbelt Use: always Sunscreen Use: No Assistive Devices: CPAP, Denture - Upper and Glasses Physical Exam Vital Signs Vital Signs - 24 hr 12/06/24 09:24 12/06/24 09:24 12/06/24 09:24 Temperature 37 C Temperature Source Oral Pulse Rate 64 Pulse Rate from SpO2 Sensor Respiratory Rate 15 Respiratory Effort / Characteristics Non-Labored Spontaneous Non-Labored Spontaneous Respiratory Depth Normal Normal Blood Pressure 136/75 Blood Pressure Mean 95 Pulse Oximetry 93 Oxygen Delivery Method Room Air Room Air Sepsis Recent Fever Within 48 Hours No Sepsis New/Unexplained Change in Mental Status N/A Sepsis Action Taken by Nursing No Action Required 12/06/24 09:25 12/06/24 09:30 12/06/24 09:30 Temperature Temperature Source Pulse Rate 63 63 Pulse Rate from SpO2 Sensor 62 Respiratory Rate Respiratory Effort / Characteristics Respiratory Depth Blood Pressure Blood Pressure Mean Pulse Oximetry 94 Oxygen Delivery Method Room Air Sepsis Recent Fever Within 48 Hours Sepsis New/Unexplained Change in Mental Status Sepsis Action Taken by Nursing 12/06/24 09:39 12/06/24 09:41 12/06/24 09:45 Temperature Temperature Source Pulse Rate 61 61 Pulse Rate from SpO2 Sensor 60 62 Respiratory Rate 21 18 Respiratory Effort / Characteristics Respiratory Depth Blood Pressure 124/72 Blood Pressure Mean 102 Pulse Oximetry 95 94 Oxygen Delivery Method Sepsis Recent Fever Within 48 Hours Sepsis New/Unexplained Change in Mental Status Sepsis Action Taken by Nursing 12/06/24 09:54 12/06/24 10:00 12/06/24 10:00 Temperature Temperature Source Pulse Rate 61 64 Pulse Rate from SpO2 Sensor 62 64 Respiratory Rate 16 23 Respiratory Effort / Characteristics Respiratory Depth Blood Pressure 126/76 Blood Pressure Mean 86 Pulse Oximetry 94 93 Oxygen Delivery Method Sepsis Recent Fever Within 48 Hours Sepsis New/Unexplained Change in Mental Status Sepsis Action Taken by Nursing 12/06/24 10:00 12/06/24 10:00 12/06/24 10:12 Temperature Temperature Source Pulse Rate 61 Pulse Rate from SpO2 Sensor 61 Respiratory Rate 18 Respiratory Effort / Characteristics Respiratory Depth Blood Pressure 126/76 126/76 Blood Pressure Mean 86 86 Pulse Oximetry 94 Oxygen Delivery Method Sepsis Recent Fever Within 48 Hours Sepsis New/Unexplained Change in Mental Status Sepsis Action Taken by Nursing 12/06/24 10:21 12/06/24 10:30 12/06/24 10:30 Temperature Temperature Source Pulse Rate 59 L 60 Pulse Rate from SpO2 Sensor 59 L 60 Respiratory Rate 16 16 Respiratory Effort / Characteristics Respiratory Depth Blood Pressure 123/73 Blood Pressure Mean 99 Pulse Oximetry 94 93 Oxygen Delivery Method Sepsis Recent Fever Within 48 Hours Sepsis New/Unexplained Change in Mental Status Sepsis Action Taken by Nursing Physical Exam GENERAL: oriented to person, place, and time. appears well-developed and well- nourished. HENT: Exam performed. - Head: Normocephalic and atraumatic. EYES: Conjunctivae and EOM are normal. Right eye exhibits no discharge. Left eye exhibits no discharge. No scleral icterus. NECK: Normal range of motion. Neck supple. No JVD present. CV: Normal rate, regular rhythm, normal heart sounds and intact distal pulses. There is no peripheral edema. Palpable radial pulses bue. PULM/CHEST: Effort normal and breath sounds normal. No respiratory distress. No stridor. no wheezes. no rales. ABD: The abdomen is soft. There is no tenderness. NEURO: Motor and sensation grossly intact. SKIN: Skin is warm and dry. He is not diaphoretic. PSYCH: normal mood and affect. Behavior is normal. Judgment and thought content normal. Course Course 926: The patient was evaluated in room B7. A complete history and physical exam was performed Cardiac monitoring: An order was placed for continuous cardiac monitoring. The monitor shows a rate of 60 with sinus rhythm interpreted by me 1030: Vital signs stable. Labs and imaging are unremarkable. Patient will be admitted for chest pain rule out ACS. Medical Decision Making Laboratory Data Attestation: I reviewed the patient's lab results. 12/06/24 09:20 12/06/24 09:20 Labs: Lab Results 12/06/24 Range/Units 09:20 WBC 7.05 (4.8-10.8) K/ul RBC 4.82 (4.70-6.10) M/uL Hgb 14.0 (14.0-18.0) g/dl Hct 42.3 (42.0-52.0) % MCV 87.8 (80.0-100.0) fL MCH 29.0 (25.0-34.0) pg MCHC 33.1 (32.0-36.0) g/dL RDW Std Deviation 41.7 (36.4-46.3) fL RDW Coeff of Erika 12.9 (11.5-14.5) % Plt Count 205 (130-400) K/uL MPV 8.6 L (9.4-12.4) fL Immature Gran % (Auto) 0.4 % Neut % (Auto) 68.5 % Lymph % (Auto) 15.9 % Rush % (Auto) 9.8 % Eos % (Auto) 4.8 % Baso % (Auto) 0.6 % Neut # (Auto) 4.83 (1.40-6.50) K/uL Lymph # (Auto) 1.12 L (1.20-3.40) K/uL Rush # (Auto) 0.69 H (0.11-0.59) K/uL Eos # (Auto) 0.34 (0.00-0.50) K/uL Baso # (Auto) 0.04 (0.00-0.20) K/uL Immature Gran # (Auto) 0.03 (0.01-0.20) K/uL PT 11.3 (9.0-12.0) Seconds INR 1.0 (0.9-1.1) APTT 24 (21-31) Seconds PTT Ratio 0.9 Sodium 141 (136-145) mmol/L Potassium 4.2 (3.5-5.1) mmol/L Chloride 107 (98-107) mmol/L Carbon Dioxide 28 (21-32) mmol/L Anion Gap 6 (3-11) BUN 16 (6-23) mg/dl Creatinine 0.97 (0.6-1.4) mg/dl Est Cr Clr Drug Dosing Not Reportable eGFR 78.92 BUN/Creatinine Ratio 16.5 (10-20) Glucose 131 H (70-99(Fasting)) mg/dl Calcium 8.7 (8.6-10.3) mg/dl Troponin I High Sens 3.5 (0-20) pg/ml Lipase 22 (11-82) U/L Imaging Data Chest x-ray: Attestation: I personally reviewed and interpreted this imaging study as follows: My impression: Chest x-ray negative. Airway clear. No pneumothorax. No consolidation. No cardiomegaly or cephalization.. No free air under the diaphragm. No fractures of the skeletal structures. Radiologist's impression: Chest X-Ray 12/06/24 09:29 EXAM: Radiograph of the Chest 1 View INDICATION: Pain TECHNIQUE: Frontal view of the chest. COMPARISON: 09/15/2024 FINDINGS: Lungs and pleural spaces: Shallow inspiration with minimal scarring in the left base. No consolidation or pulmonary edema. No pleural effusion or pneumothorax. Heart: Stable enlargement. Coronary bypass changes noted. Mediastinum: Normal contour. Bones/joints: No fracture, erosion or dislocation. Soft tissues: No abnormality noted. No radiopaque foreign body noted. Upper abdomen: No abnormality noted. IMPRESSION: No acute cardiopulmonary disease. ACT 112: N/A Electronically signed by Alina Kennedy 12-06-2024 09:56 AM ECG Data Attestation: I personally reviewed and interpreted this ECG as follows: Rate (beats per minute): 63 Rhythm: normal sinus Findings: no ST depression, no ST elevation or no prolonged QT Additional Comments: QRS 68 MDM Narrative 0927: The patient was evaluated in room B7. A complete history and physical exam was performed Cardiac monitoring: An order was placed for continuous cardiac monitoring. The monitor shows a rate of 60 with sinus rhythm interpreted by me 1030: Vital signs stable. Labs and imaging are unremarkable. Patient will be admitted for chest pain rule out ACS. Impression & Plan Chest pain Discharge Plan Visit Data Chief Complaint: Chest Pain Stated Complaint: CHEST PAIN ED Provider: Jw Colmenares Discharge Problem: Chest pain Patient Disposition: Being Evaluated by Hospitalist Condition: Fair Forms Stand Alone Forms: My [facility] Prescriptions Prescriptions: No Action tamsulosin [Flomax] 0.4 mg capsule 0.4 mg PO QAM Qty: 90 3RF Trelegy Ellipta 100-62.5-25 mcg blister with device 1 inh inhalation QAM Qty: 90 3RF clopidogrel [Plavix] 75 mg tablet 75 mg PO Q2D Qty: 45 3RF Hold Instructions: Resume on 09/25/24. escitalopram oxalate [Lexapro] 10 mg tablet 10 mg PO QAM Qty: 90 3RF nitroglycerin 0.4 mg tablet, sublingual 0.4 mg Sublingual UD PRN (Reason: Chest Pain) Qty: 25 3RF Patient Comments: pt has not needed atorvastatin 40 mg tablet 40 mg PO HS Qty: 90 3RF esomeprazole magnesium [Nexium] 40 mg capsule,delayed release(DR/EC) 40 mg PO QAM Qty: 90 3RF isosorbide mononitrate 60 mg tablet extended release 24 hr 60 mg PO QAM Qty: 90 3RF metoprolol succinate 25 mg tablet extended release 24 hr 25 mg PO QAM Qty: 90 3RF olopatadine [Pataday Once Daily Relief] 0.2 % drops 1 drp ophthalmic (eye) BID azelastine 137 mcg (0.1 %) spray,non-aerosol 1 spray intranasal BID Rx Instructions: administer into each nostril multivitamin Tablet 1 tab PO QAM aspirin 81 mg Tablet,Delayed Release (Dr/Ec) 81 mg PO HS loratadine [Claritin] 10 mg Tablet 10 mg PO QAM acetaminophen [Tylenol Extra Strength] 500 mg Tablet 1,000 mg PO Q6H PRN (Reason: Fever Or Pain) budesonide 0.5 mg/2 mL suspension for nebulization 0.5 mg irrigation BID Referrals Referrals: Inder Maguire MD [Primary Care Provider] - Discharge Problem: Chest pain Qualifiers: Chest pain type: unspecified Qualified Code(s): R07.9 - Chest pain, unspecified
[2024-12-06 09:54] LABS: Basophils # (auto) 0.04 K/uL (0.00-0.20); Basophils % (auto) 0.6 %; Eosinophils # (auto) 0.34 K/uL (0.00-0.50); Eosinophils % (auto) 4.8 %; Hematocrit (blood only) 42.3 % (42.0-52.0); Immature Granulocytes # (auto) 0.03 K/uL (0.01-0.20); Immature Granulocytes % (auto) 0.4 %; Lymphocytes # (auto) 1.12 K/uL (1.20-3.40); Lymphocytes % (auto) 15.9 %; Mean Corpuscular Hgb Conc 33.1 g/dL (32.0-36.0); Mean Corpuscular Volume 87.8 fL (80.0-100.0); Mean Platelet Volume 8.6 fL (9.4-12.4); Monocytes # (auto) 0.69 K/uL (0.11-0.59); Monocytes % (auto) 9.8 %; Neutrophils # (auto) 4.83 K/uL (1.40-6.50); Neutrophils % (auto) 68.5 %; Platelet Count 205 K/uL (130-400); RDW Coefficient of Variation 12.9 % (11.5-14.5); RDW Standard Deviation 41.7 fL (36.4-46.3); Red Blood Count 4.82 M/uL (4.70-6.10); White Blood Count 7.05 K/ul (4.8-10.8)
--- NOTE | 2024-12-06 09:56 | XRay Report ---
EXAM: Radiograph of the Chest 1 View INDICATION: Pain TECHNIQUE: Frontal view of the chest. COMPARISON: 09/15/2024 FINDINGS: Lungs and pleural spaces: Shallow inspiration with minimal scarring in the left base. No consolidation or pulmonary edema. No pleural effusion or pneumothorax. Heart: Stable enlargement. Coronary bypass changes noted. Mediastinum: Normal contour. Bones/joints: No fracture, erosion or dislocation. Soft tissues: No abnormality noted. No radiopaque foreign body noted. Upper abdomen: No abnormality noted. IMPRESSION: No acute cardiopulmonary disease. ACT 112: N/A Electronically signed by Alina Kennedy 12-06-2024 09:56 AM
[2024-12-06 10:01] LABS: Anion Gap 6 (3-11); BUN Creatinine Ratio 16.5 (10-20); Blood Urea Nitrogen 16 mg/dl (6-23); Calcium 8.7 mg/dl (8.6-10.3); Carbon Dioxide 28 mmol/L (21-32); Chloride 107 mmol/L (98-107); Glucose 131 mg/dl (70-99(Fasting)); Lipase 22 U/L (11-82); Potassium 4.2 mmol/L (3.5-5.1); Sodium 141 mmol/L (136-145)
[2024-12-06 10:08] LABS: Troponin I High Sensitivity 3.5 pg/ml (0-20)
[2024-12-06 10:23] LABS: Partial Thromboplastin Ratio 0.9; Partial Thromboplastin Time 24 Seconds (21-31); Prothrombin Time 11.3 Seconds (9.0-12.0)
--- NOTE | 2024-12-06 12:07 | History & Physical Report ---
Date of Service December 06, 2024 Assessment & Plan (1) Unstable angina: (2) CAD (coronary artery disease): (3) Exertional dyspnea: (4) Mild reactive airways disease: Plan 79-year-old male with past medical history of CAD (severe three-vessel disease, multivessel CABG with CARR in 2010), previous small ischemic stroke on clopidogrel and aspirin, prediabetes, hypertension, ACOSTA on CPAP, hyperlipidemia, bladder cancer s/p resection, GERD, dysphagia s/p recent EGD, and history of SCC. He presented from [facility] with acute onset of chest pain radiating across his chest and to his jaw bilaterally with associated diaphoresis, nausea, and moderate chest tightness. He took nitro x 2 with relief. EMS was called and provided him with aspirin. His chest pain resolved with the EMS and he has not had any further chest pain or symptoms since being in the ED. Also with progressively worsening dyspnea on exertion x 6 months. Additionally he reports symptoms of orthostatic hypotension x 1 week. Admitted for further workup of unstable angina. #Unstable angina/CAD/Exertional Dyspnea- history of multivessel CABG with CARR in 2010. History of small ischemic stroke. - Prior history of stable angina with chest pain that would occur with high levels of exertion and resolved promptly with rest and/or single dose of nitro. This episode of chest pain occurred while at rest at [facility] and did not resolve after 1 dose of nitro. CP did resolve after 2 doses of nitro and 1 dose of aspirin - Lexiscan myocardial perfusion study in March 2024 showed no infarct or ischemia - Cardiology consulted - at last outpatient cardiology visit, there was discussion about reevaluating and reconsidering invasive evaluation/intervention if he develops substantial symptoms - Will start heparin gtt with bolus now - Echocardiogram ordered - Trend troponin Q6H x 3 - Will make n.p.o. at midnight in case cardiology takes him to [facility] tomorrow, 12/07 - Nitro paste PRN, morphine sulfate 2 mg IV PRN - Continue Plavix 75 mg QOD for prior CVA - Continue aspirin 81 mg daily for CAD/CABG #Suspected orthostatic hypotension - with dizziness and visual changes upon standing - Has a history of orthostasis which improved after his amlodipine dose was reduced - Symptoms have been occurring for approximately 1 week - Will obtain orthostatic vital signs to evaluate #Hypertension/Hyperlipidemia - chronic, stable - Continue amlodipine 2.5 mg daily, isosorbide mononitrate 60 mg daily, metoprolol 25 mg daily, atorvastatin 40 mg daily #Prediabetes - A1c 6.5% in August. Managed with diet. Will repeat A1c with AM labs #Mild reactive airway disease - Continue Trelegy #Dysphagia/GERD - continue PPI #Bladder cancer s/p resection - continue tamsulosin. Bladder scan PRN #ACOSTA - CPAP HS CODE STATUS: Full code VTE PPx: SCDs, heparin gtt Dispo: Pending cardiology evaluation Reviewed outpatient records Updated family members at bedside Discussed case with cardiology History of Present Illness Chief Complaint: Chest pain Primary Care Provider: Inder Maguire MD Fabricio is a pleasant 79-year-old male with past medical history of CAD (severe three-vessel disease, multivessel CABG with CARR in 2010), previous small ischemic stroke on clopidogrel and aspirin, prediabetes, hypertension, ACOSTA on CPAP, hyperlipidemia, bladder cancer s/p resection, GERD, dysphagia s/p recent EGD, and history of SCC. He presented from [facility] with acute onset of chest pain. At the time my exam, the patient was lying in bed in no acute distress. He states he woke up in his usual state of health and went to [facility]. While at [facility], he developed acute onset of chest pain radiating across his chest and to his jaw bilaterally with associated diaphoresis, nausea, and moderate chest tightness. He took nitro x 2 with relief. EMS was called and provided him with aspirin. His chest pain resolved with the EMS and he has not had any further chest pain or symptoms since being in the ED. He denies orthopnea, peripheral edema, heart palpitations, presyncope, syncope. He denies alcohol or tobacco use. He denies recent illness aside from some sinus congestion 2 days ago for which he took Tylenol. He also reports progressively worsening dyspnea on exertion x ~6 months. He notes if he continues his activity despite his dyspnea, he will develop chest pain. He also reports symptoms of orthostatic hypotension x 1 week with dizziness and "black spots" visual changes with standing. Patient reports that he took all of his regular morning medications today; no recent change in medications. He does does not use supplemental oxygen during the day at baseline, but does wear CPAP at night and is compliant with this. Vitals on admission are stable. Labs on admission are significant for mildly elevated serum glucose at 131; otherwise unremarkable. EKG on admission with NSR. Per my interpretation with my attending physician, subtle EKG changes are noted with T wave inversions in leads I, aVL, V4, V5, V6. Reached out to cardiology to review. CXR on admission unremarkable. We discussed code status, patient wishes to be a full code. His and daughter are present at bedside. Allergies Allergy/AdvReac Type Severity Reaction Status Date / Time Iodinated Contrast Media AdvReac Intermediate "FEELING Verified 10/27/24 06:33 FUNNY" Home Medications Medication Instructions Recorded Confirmed Type aspirin 81 mg tablet,delayed 81 mg PO HS 08/04/18 12/06/24 History release loratadine 10 mg tablet (Claritin) 10 mg PO QAM 08/04/18 12/06/24 History multivitamin 1 tab PO QAM 08/04/18 12/06/24 History acetaminophen 500 mg tablet 1,000 mg PO Q6H PRN Fever Or Pain 06/06/22 12/06/24 History (Tylenol Extra Strength) azelastine 137 mcg (0.1 %) nasal 1 spray intranasal BID 06/30/24 12/06/24 History spray tamsulosin 0.4 mg capsule (Flomax) 0.4 mg PO QAM #90 caps 07/09/24 12/06/24 Rx fluticasone fur. 100 mcg-umeclid 1 inh inhalation QAM #90 ea 08/11/24 12/06/24 Rx 62.5 mcg-vilant 25 mcg inhalat.powder (Trelegy Ellipta) clopidogrel 75 mg tablet (Plavix) 75 mg PO Q2D #45 tabs 09/29/24 12/06/24 Rx escitalopram oxalate 10 mg tablet 10 mg PO QAM #90 tabs 09/29/24 12/06/24 Rx (Lexapro) nitroglycerin 0.4 mg sublingual 0.4 mg sublingual UD PRN Chest 09/29/24 12/06/24 Rx tablet Pain #25 tabs olopatadine 0.2 % eye drops 1 drp ophthalmic (eye) BID 10/19/24 12/06/24 History (Pataday Once Daily Relief) atorvastatin 40 mg tablet 40 mg PO HS #90 tabs 11/03/24 12/06/24 Rx esomeprazole magnesium 40 mg 40 mg PO QAM #90 caps 11/03/24 12/06/24 Rx capsule,delayed release (Nexium) isosorbide mononitrate 60 mg 60 mg PO QAM #90 tabs 11/03/24 12/06/24 Rx tablet,extended release 24 hr metoprolol succinate 25 mg 25 mg PO QAM #90 tabs 11/03/24 12/06/24 Rx tablet,extended release 24 hr budesonide 0.5 mg/2 mL suspension 0.5 mg irrigation BID 12/06/24 12/06/24 History for nebulization Past Med/Surg History Problem List (Updated 12/06/24 @ 12:20 by Chandrika Edward PA-C) Unstable angina Chest pain (Acute) Progressive angina Dysphagia Bladder carcinoma Chronic stable angina Bladder tumor BPH NOS w ur obs/LUTS Hematuria, microscopic Squamous cell carcinoma of left upper extremity Hydrocele Left knee DJD Changing skin lesion Current use of proton pump inhibitor Nasal polyposis Chronic sinusitis Leukocytosis (Acute) Skin change Exertional dyspnea History of colon polyps Mild reactive airways disease Stable, on trelegy Colon polyps (Acute) Enlarged prostate without lower urinary tract symptoms (luts) (Acute) Moderate obstructive sleep apnea Allergic rhinitis Osteoarthritis (Acute) Diverticulosis of colon (Acute) Esophageal dyskinesia (Acute) History of gastroesophageal reflux (GERD) (Acute) Inguinal hernia (Acute) Internal hemorrhoids (Acute) Metabolic disorder (Acute) Nephrolithiasis (Acute) Periodic limb movement disorder (Acute) Adjustment disorder with depressed mood (Acute) CAD (coronary artery disease) of artery bypass graft (Acute) s/p CABG (2010) Carotid atherosclerosis (Acute) Type 2 diabetes mellitus (Acute) Prediabetes GERD without esophagitis (Acute) Hyperlipidemia (Acute) Hypertension (Acute) Borderline diabetes Medical History On anticoagulant therapy Esophageal dyskinesia CAD (coronary artery disease) History of colon polyps Periodic limb movement disorder Inguinal hernia no issues Exertional dyspnea History of dysphagia "still has occasionally" Diverticulosis of colon Chronic stable angina Chronic sinusitis Bladder cancer initially dx 08/2023, "low grade" Hx-TIA (transient ischemic attack) approx 2013 > no residual effects > Plavix for this Mild reactive airways disease well controlled per pt; reason for inhaler Hx of Clostridium difficile infection x 3 episodes 2021 diarrhea since resolved BPH (benign prostatic hyperplasia) Hx of squamous cell carcinoma of skin removed, no other tx Carotid artery stenosis Stable, <50% ICA stenosis bilaterally per 2018 carotid duplex Prediabetes diet controlled Hx of renal calculi History of COVID-19 Covid positive 04/17/22 (home test) and 06/06/22 ([facility]), no symptoms, resolved Osteoarthritis GERD (gastroesophageal reflux disease) Depression Hypertension Hyperlipidemia Sleep apnea CPAP (compliant) Surgical History Hx of left cataract extraction (09/08/24) History of transurethral resection of bladder tumor (TURBT) 08/2023, 08/2024 Dr Canas Hx of colonoscopy with polypectomy ~2020 Hx of squamous cell carcinoma excision right arm x 2 procedures, no other treatment History of thumb surgery Left thumb bone spur removal History of neck surgery Benign lump removed off neck History of tooth extraction History of esophagogastroduodenoscopy (EGD) w/ dilation 11/2023 w/ dilation 07/2024 History of cardiac cath 2010, [facility] > CABG [facility] > no stents History of coronary artery bypass graft (2010) CABG x3, [facility], follow with Dr. Painter at [facility] Family History Mother Family history of diabetes mellitus Myocardial infarction Sister Family history of diabetes mellitus Father Myocardial infarction Other Hypertension Kidney stones No family history of adverse response to anesthesia Denies family history of Ovarian cancer Prostate cancer Crohn's disease Breast cancer Lung cancer Colorectal cancer Stroke Social History Smoking Status: Never smoker Second Hand Exposure: No; Do You Dip or Chew Tobacco: No; Hx Alcohol Use: No Hx Substance Use: No Preferred Language: Wolof Communication Ability: Effective Coroner Transport Technician Required: No Beliefs That Will Affect Care: None marital status: Current Living Situation: Spouse Current Living Situation Comment: 2-story home 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 Other Information That Helps Us Care for You: No Feels Safe at Home: Yes Safety Concerns: Feels Safe At This Time Childhood Exposure to Second-Hand Smoke: Yes caffeine: No Dental Care, Regularly: Yes Physical Activity Frequency: Daily Seatbelt Use: always Sunscreen Use: No Assistive Devices: CPAP, Denture - Upper and Glasses Review of Systems Review of Systems: All systems reviewed & are unremarkable except as noted in HPI & below Physical Exam Physical Exam: General: No acute distress, nondiaphoretic, well-developed, well-nourished. Cardiac: Regular rate and rhythm without murmurs gallops or rubs. No peripheral edema. Pulm: Clear to auscultation bilaterally without wheezes, rales or rhonchi. Normal respiratory effort. 95% on room air. Abdominal: Soft, nontender, distended secondary to body habitus. Bowel sounds present. Neuro: A&O x3. No focal neurological deficits. Results & Data Results & Data Vital Signs (Past 12 Hours) Vital Signs Temp Pulse Resp BP Pulse Ox O2 Del Method 12/06/24 10:30 60 16 93 12/06/24 10:30 123/73 12/06/24 10:21 59 L 16 94 12/06/24 10:12 61 18 94 12/06/24 10:00 126/76 12/06/24 10:00 126/76 12/06/24 10:00 126/76 12/06/24 10:00 64 23 93 12/06/24 09:54 61 16 94 12/06/24 09:45 61 18 94 12/06/24 09:41 124/72 12/06/24 09:39 61 21 95 12/06/24 09:30 63 94 12/06/24 09:30 Room Air 12/06/24 09:25 63 12/06/24 09:24 Room Air 12/06/24 09:24 98.6 F 64 15 136/75 93 Room Air Laboratory Results Reviewed CBC with differential Reviewed coags Reviewed BMP, chemistries Diagnostic Findings Reviewed EKG Reviewed CXR Code Status & VTE Plan VTE Prophylaxis Plan VTE Prophylaxis will be ordered: Yes Supervising Physician Co-Signing Physician Notes PA Supervision Note: I personally saw and examined the patient. I verified all ortega points and agree with MARCUS Edward with the following exceptions and/or additions: S-Pt here with angina radiating to bilat jaw and with diaphoresis, nausea while sitting in [facility], relieved with nitro. History and ROS otherwise reviewed as above O- Vitals reviewed Gen: [AAOx3, NAD] HEENT: [anicteric sclerae, EOMI] CV: [RRR no mgr nl S1S2] Pulm: [CTAB no wcr] Abd: [+BS soft NT ND no masses or hernias] Ext: [no edema] Skin: [no rashes, warm/dry] Neuro: [full strength throughout] CBC, BMP, trop, CXR, ECG reviewed A/P-79 yo male with a h/o CAD s/p 3vCABG here with unstable angina. Tredn trop, check ECHO, consult cardio to see about cardiac cath on Saturday. STart heparin gtt--> PTT in afternoon drawn shortly after heparin bolus given--> advised to continue heparin gtt and repeat PTT 2 hurs later lower but still elevated at 100. Adised to hold heparin and check anti XA level in 2 hours. Signed out to overnight reident to discuss with pharmacist about options to re sume heparin dosing at that time based on antiXa PG Care Time/CCT Total # of Minutes Spent Total Time Spent with Patient: Total time spent is greater than 50% in coordination of care (as documented) at patient's floor/unit and/or counseling patient: Coding Level of Care Code 32438 INT INP/OBS CARE 3/75MIN Diagnoses Unstable angina I20.0 CAD (coronary artery disease) I25.10 Exertional dyspnea R06.00 Mild reactive airways disease J45.909
[2024-12-06] MEDS ORDERED: GLUCOSE 10 TAB/TUBE PO PRN (14:18)
[2024-12-06] MEDS ORDERED: GLUCAGON FOR INJ 1 MG VIAL SQ PRN (14:18)
[2024-12-06] MEDS ORDERED: DEXTROSE 50% 50 ML SYRINGE IV PRN (14:18)
[2024-12-06] MEDS ORDERED: POLYETHYLENE (MIRALAX) 17 GM PACK PO PRN (14:18)
[2024-12-06] MEDS ORDERED: CARBOHYDRATES FOR HYPOGLYCEMIA PO PRN (14:18)
[2024-12-06] MEDS ORDERED: ONDANSETRON INJ 2 MG/ML 2 ML VIAL IV PRN (14:18)
[2024-12-06] MEDS ORDERED: MoRPHine SULFATE 2 MG/ML CARP IV PRN (14:18)
[2024-12-06] MEDS ORDERED: ACETAMINOPHEN 325 MG TAB PO PRN (14:18)
[2024-12-06] MEDS ORDERED: GLUCOSE 40% GEL 15 GM TUBE PO PRN (14:18)
[2024-12-06] MEDS: Patient's HEIGHT &/or WEIGHT Needed STA (15:09)
[2024-12-06] MEDS: HEPARIN SOD (PORCINE) 1000 UNIT/ML IV ONE (15:29)
[2024-12-06] MEDS: Heparin IV Adult Wt-Based Standard w/ INITIAL Bolus Protocol IV STA (15:30)
[2024-12-06] MEDS: NITROGLYCERIN 2% OINTMENT 30GM TUBE EXT SCH (15:37)
[2024-12-06] MEDS: HEPARIN 25000 UNIT/500 ML D5W 25,000 UNITS/500 ML BAG IV SCH (15:37)
[2024-12-06 16:11] LABS: Basophils # (auto) 0.05 K/uL (0.00-0.20); Basophils % (auto) 0.7 %; Eosinophils # (auto) 0.32 K/uL (0.00-0.50); Eosinophils % (auto) 4.3 %; Hematocrit (blood only) 41.9 % (42.0-52.0); Hemoglobin 13.9 g/dl (14.0-18.0); Immature Granulocytes # (auto) 0.02 K/uL (0.01-0.20); Immature Granulocytes % (auto) 0.3 %; Lymphocytes # (auto) 1.56 K/uL (1.20-3.40); Lymphocytes % (auto) 20.8 %; Mean Corpuscular Hgb Conc 33.2 g/dL (32.0-36.0); Mean Corpuscular Volume 87.3 fL (80.0-100.0); Mean Platelet Volume 8.5 fL (9.4-12.4); Monocytes # (auto) 0.78 K/uL (0.11-0.59); Monocytes % (auto) 10.4 %; Neutrophils # (auto) 4.78 K/uL (1.40-6.50); Neutrophils % (auto) 63.5 %; Platelet Count 193 K/uL (130-400); RDW Coefficient of Variation 13.1 % (11.5-14.5); RDW Standard Deviation 41.5 fL (36.4-46.3); White Blood Count 7.51 K/ul (4.8-10.8)
[2024-12-06 16:34] LABS: INR 1.1 (0.9-1.1); Partial Thromboplastin Ratio 4.8; Prothrombin Time 11.7 Seconds (9.0-12.0)
[2024-12-06 17:14] LABS: Partial Thromboplastin Time 129 Seconds (21-31)
--- NOTE | 2024-12-06 18:18 | XCELERA ---
[id number] \\[id number]
[2024-12-06 18:47] LABS: Partial Thromboplastin Ratio 3.8
[2024-12-06 18:50] LABS: Partial Thromboplastin Time 102 Seconds (21-31)
[2024-12-06] MEDS ORDERED: Nursing to Pharmacy Communication SCH (19:45)
[2024-12-06] MEDS: ASPIRIN 81 MG ECTAB PO SCH (21:32)
[2024-12-06] MEDS: ATORVASTATIN 40 MG TAB PO SCH (21:33)
[2024-12-06 21:51] LABS: ANTI-Xa, UFH(UnfractionatedHep 0.34 IU/ml (0.3-0.7)
[2024-12-07 04:37] LABS: Hematocrit (blood only) 42.7 % (42.0-52.0); Mean Corpuscular Hemoglobin 28.5 pg (25.0-34.0); Mean Corpuscular Hgb Conc 32.8 g/dL (32.0-36.0); Mean Platelet Volume 8.4 fL (9.4-12.4); Platelet Count 186 K/uL (130-400); RDW Coefficient of Variation 13.1 % (11.5-14.5); RDW Standard Deviation 41.1 fL (36.4-46.3); Red Blood Count 4.91 M/uL (4.70-6.10); White Blood Count 8.18 K/ul (4.8-10.8)
[2024-12-07 04:53] LABS: BUN Creatinine Ratio 17.9 (10-20); Calcium 8.7 mg/dl (8.6-10.3); Creatinine Clr Calc Pharmacy 69.4 ml/min; Potassium 4.2 mmol/L (3.5-5.1)
[2024-12-07 05:11] LABS: ANTI-Xa, UFH(UnfractionatedHep 0.73 IU/ml (0.3-0.7)
[2024-12-07] MEDS ORDERED: NON-FORMULARY MEDICATION (Fluticasone-Umeclidin-Vilanter [Trelegy Ellipta] 100-62.5-25 mcg INH SCH (09:00)
[2024-12-07] MEDS: FLUTICASONE FUROATE 100MCG 14 PUFFS/INHALER INH SCH (09:27)
[2024-12-07] MEDS: UMECLIDINIUM/VILANTEROL 62.5/25MCG 7 PUFFS/INHALER INH SCH (09:27)
[2024-12-07] MEDS: LORATADINE 10 MG TAB PO SCH (09:29)
[2024-12-07] MEDS: METOPROLOL SUCC 25MG EXT REL TAB PO SCH (09:29)
[2024-12-07] MEDS: TAMSULOSIN HCL 0.4 MG CAP PO SCH (09:29)
[2024-12-07] MEDS: PANTOprazole 40 MG TAB PO SCH (09:29)
[2024-12-07] MEDS: ESCITALOPRAM OXALATE 10 MG TAB PO SCH (09:29)
[2024-12-07] MEDS: ISOSORBIDE MONO EXTENDED REL 60 MG TABCR PO SCH (09:30)
--- NOTE | 2024-12-07 11:34 | Cardiology Consultation ---
Date of Consultation December 07, 2024 Assessment & Plan (1) Unstable angina: (2) CAD (coronary artery disease) of artery bypass graft: (3) Mitral regurgitation: Plan 1. Unstable angina: Has had symptoms over time suggestive of stable angina. However, yesterday's event occurred without provocation. Some symptoms consistent with high vagal tone as well. No elevation of biomarkers to suggest infarct. Normal perfusion study last year, but given his progressive symptoms and risk for progression of coronary disease it would seem reasonable to reevaluate. We discussed the option of noninvasive versus invasive testing. Given the progressive nature of his symptoms it would seem reasonable to be more aggressive and we will plan coronary angiography today. Will continue the heparin infusion until his evaluation. 2. Coronary disease: Status post three-vessel bypass with CARR to LAD, saphenous vein graft to circumflex and saphenous vein graft to PDA. He has been maintained on aspirin, clopidogrel, metoprolol and high-dose atorvastatin. He has had symptoms of chest pain previously and is also on isosorbide mononitrate. 3. Mitral regurgitation: Mild. This can be followed over time. History of Present Illness Reason for Consultation: Chest pain Requesting Physician: Rashard Attending Physician: Oliverio Delcid, DO History of Present Illness The patient is an 79-year-old gentleman with a history of coronary artery disease having undergone surgical revascularization in 2010. Yesterday he had an episode of chest and jaw discomfort while at synagogue. The patient was resting comfortably when he began to experience some symptoms of upper chest pressure and discomfort. This eventually progressed to involve some discomfort in the jaw as well. With some activity he also developed significant diaphoresis and was described as being "pale" by bystanders. He needed to immediately evacuate his bowels and urinate as well. Minimal dyspnea at that time. No presyncope or syncope. He did take 2 nitroglycerin with some improvement. EMS was contacted and by the time he got in the ambulance he feels his symptoms had essentially resolved. He has not had any recurrence since being admitted to the hospital. Based on concerns for an acute coronary syndrome the patient was placed on heparin infusion. The patient states that over the past couple of years he has had symptoms of exertional dyspnea and mild chest discomfort. He states that with minimal activity now he will get somewhat short of breath. If he attempts to increase his activity he will often develop some symptoms of chest discomfort as well. He feels the symptoms are similar to those he experienced prior to his bypass in 2010. Based on the nature of the symptoms he did undergo cardiac perfusion imaging last year. This was felt to represent normal blood flow without evidence of infarct or ischemia. He denies symptoms of palpitations. Generally not dizzy unless standing up rapidly. No history of syncope. No lower extremity edema. Allergies Allergy/AdvReac Type Severity Reaction Status Date / Time Iodinated Contrast Media AdvReac Intermediate "FEELING Verified 10/27/24 06:33 FUNNY" Home Medications Medication Instructions Recorded Confirmed Type aspirin 81 mg tablet,delayed 81 mg PO HS 08/04/18 12/06/24 History release loratadine 10 mg tablet (Claritin) 10 mg PO QAM 08/04/18 12/06/24 History multivitamin 1 tab PO QAM 08/04/18 12/06/24 History acetaminophen 500 mg tablet 1,000 mg PO Q6H PRN Fever Or Pain 06/06/22 12/06/24 History (Tylenol Extra Strength) azelastine 137 mcg (0.1 %) nasal 1 spray intranasal BID 06/30/24 12/06/24 History spray tamsulosin 0.4 mg capsule (Flomax) 0.4 mg PO QAM #90 caps 07/09/24 12/06/24 Rx fluticasone fur. 100 mcg-umeclid 1 inh inhalation QAM #90 ea 08/11/24 12/06/24 Rx 62.5 mcg-vilant 25 mcg inhalat.powder (Trelegy Ellipta) clopidogrel 75 mg tablet (Plavix) 75 mg PO Q2D #45 tabs 09/29/24 12/06/24 Rx escitalopram oxalate 10 mg tablet 10 mg PO QAM #90 tabs 09/29/24 12/06/24 Rx (Lexapro) nitroglycerin 0.4 mg sublingual 0.4 mg sublingual UD PRN Chest 09/29/24 12/06/24 Rx tablet Pain #25 tabs olopatadine 0.2 % eye drops 1 drp ophthalmic (eye) BID 10/19/24 12/06/24 History (Pataday Once Daily Relief) atorvastatin 40 mg tablet 40 mg PO HS #90 tabs 11/03/24 12/06/24 Rx esomeprazole magnesium 40 mg 40 mg PO QAM #90 caps 05/06/25 06/08/25 Rx capsule,delayed release (Nexium) isosorbide mononitrate 60 mg 60 mg PO QAM #90 tabs 11/03/24 12/06/24 Rx tablet,extended release 24 hr metoprolol succinate 25 mg 25 mg PO QAM #90 tabs 11/03/24 12/06/24 Rx tablet,extended release 24 hr budesonide 0.5 mg/2 mL suspension 0.5 mg irrigation BID 12/06/24 12/06/24 History for nebulization Patient History Medical History On anticoagulant therapy Esophageal dyskinesia CAD (coronary artery disease) History of colon polyps Periodic limb movement disorder Inguinal hernia no issues Exertional dyspnea History of dysphagia "still has occasionally" Diverticulosis of colon Chronic stable angina Chronic sinusitis Bladder cancer initially dx 08/2023, "low grade" Hx-TIA (transient ischemic attack) approx 2013 > no residual effects > Plavix for this Mild reactive airways disease well controlled per pt; reason for inhaler Hx of Clostridium difficile infection x 3 episodes 2021 diarrhea since resolved BPH (benign prostatic hyperplasia) Hx of squamous cell carcinoma of skin removed, no other tx Carotid artery stenosis Stable, <50% ICA stenosis bilaterally per 2018 carotid duplex Prediabetes diet controlled Hx of renal calculi History of COVID-19 Covid positive 04/17/22 (home test) and 06/06/22 ([facility]), no symptoms, resolved Osteoarthritis GERD (gastroesophageal reflux disease) Depression Hypertension Hyperlipidemia Sleep apnea CPAP (compliant) Surgical History Hx of left cataract extraction (09/08/24) History of transurethral resection of bladder tumor (TURBT) 08/2023, 08/2024 Dr Canas Hx of colonoscopy with polypectomy ~2020 Hx of squamous cell carcinoma excision right arm x 2 procedures, no other treatment History of thumb surgery Left thumb bone spur removal History of neck surgery Benign lump removed off neck History of tooth extraction History of esophagogastroduodenoscopy (EGD) w/ dilation 11/2023 w/ dilation 07/2024 History of cardiac cath 2010, [facility] > CABG 2016, [facility] > no stents History of coronary artery bypass graft (2011) CABG x3, [facility], follow with Dr. Painter at [facility] Family History Mother Family history of diabetes mellitus Myocardial infarction Sister Family history of diabetes mellitus Father Myocardial infarction Other Hypertension Kidney stones No family history of adverse response to anesthesia Denies family history of Ovarian cancer Prostate cancer Crohn's disease Breast cancer Lung cancer Colorectal cancer Stroke Social History Smoking Status: Never smoker Second Hand Exposure: No; Do You Dip or Chew Tobacco: No; Hx Alcohol Use: No Hx Substance Use: No Preferred Language: Swedish Communication Ability: Effective Vp Treasurer Required: No Beliefs That Will Affect Care: None marital status: Current Living Situation: Spouse Current Living Situation Comment: 2-story home 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 Other Information That Helps Us Care for You: No Feels Safe at Home: Yes Safety Concerns: Feels Safe At This Time Childhood Exposure to Second-Hand Smoke: Yes caffeine: No Dental Care, Regularly: Yes Physical Activity Frequency: Daily Seatbelt Use: always Sunscreen Use: No Assistive Devices: CPAP, Denture - Upper and Glasses Review of Systems Review of Systems: Per HPI Physical Exam Physical Exam: The patient is alert and oriented. Mood and affect appeared normal. He answered all questions appropriately. HEENT: Pupils are equal and reactive to light and accommodation. Extraocular movements are intact. The sclerae are anicteric. Neuro: Cranial nerves intact Neck: Patient's neck is supple. He has palpable carotid pulses bilaterally without bruits on auscultation. There is no evidence of jugular venous distention. The thyroid is not enlarged. Lungs: Clear to auscultation bilaterally. He has good air movement without use of accessory muscles. No rales wheezes or rhonchi. Cardiac: Heart demonstrates a regular rate and rhythm. Normal S1 and S2. No murmurs on examination. Pulses: The patient has palpable radial pulses bilaterally that are equal in intensity Extremities: There was no evidence of hypoperfusion. There is no cyanosis or clubbing. There is no edema. No femoral bruits. Skin: I did not appreciate any rashes on examination today. Results & Data Vital Signs (Past 12 Hours) Vital Signs Temp Pulse Pulse Pulse Resp BP Pulse Ox 12/07/24 10:59 36.3 C L 69 18 159/53 H 93 12/07/24 07:06 36.5 C 78 18 167/84 H 95 12/07/24 07:05 61 12/07/24 03:28 36.7 C 66 18 175/89 H 96 12/07/24 02:15 68 14 96 O2 Del Method FiO2 12/07/24 10:59 Room Air 12/07/24 07:06 CPAP 12/07/24 07:05 12/07/24 03:28 CPAP 12/07/24 02:15 21 Laboratory Results Abnormal Lab Results 12/06/24 12/06/24 12/06/24 12:03 15:38 15:59 WBC 7.51 RBC 4.80 Hgb 13.9 L Hct 41.9 L MCV 87.3 MCH 29.0 MCHC 33.2 RDW Std Deviation 41.5 RDW Coeff of Erika 13.1 Plt Count 193 MPV 8.5 L Immature Gran % (Auto) 0.3 Neut % (Auto) 63.5 Lymph % (Auto) 20.8 [place] % (Auto) 10.4 Eos % (Auto) 4.3 Baso % (Auto) 0.7 Neut # (Auto) 4.78 Lymph # (Auto) 1.56 [place] # (Auto) 0.78 H Eos # (Auto) 0.32 Baso # (Auto) 0.05 Immature Gran # (Auto) 0.02 PT 11.7 INR 1.1 APTT 129 H* PTT Ratio 4.8 Heparin Anti-Xa, Unfract Sodium Potassium Chloride Carbon Dioxide Anion Gap BUN Creatinine Est Cr Clr Drug Dosing eGFR BUN/Creatinine Ratio Glucose Calcium Troponin I High Sens 3.3 12/06/24 12/06/24 12/07/24 17:49 21:10 00:16 WBC RBC Hgb Hct MCV MCH MCHC RDW Std Deviation RDW Coeff of Erika Plt Count MPV Immature Gran % (Auto) Neut % (Auto) Lymph % (Auto) [place] % (Auto) Eos % (Auto) Baso % (Auto) Neut # (Auto) Lymph # (Auto) [place] # (Auto) Eos # (Auto) Baso # (Auto) Immature Gran # (Auto) PT INR APTT 102 H* PTT Ratio 3.8 Heparin Anti-Xa, Unfract 0.34 Sodium Potassium Chloride Carbon Dioxide Anion Gap BUN Creatinine Est Cr Clr Drug Dosing eGFR BUN/Creatinine Ratio Glucose Calcium Troponin I High Sens 4.6 4.8 12/07/24 04:13 WBC 8.18 RBC 4.91 Hgb 14.0 Hct 42.7 MCV 87.0 MCH 28.5 MCHC 32.8 RDW Std Deviation 41.1 RDW Coeff of Erika 13.1 Plt Count 186 MPV 8.4 L Immature Gran % (Auto) Neut % (Auto) Lymph % (Auto) [place] % (Auto) Eos % (Auto) Baso % (Auto) Neut # (Auto) Lymph # (Auto) [place] # (Auto) Eos # (Auto) Baso # (Auto) Immature Gran # (Auto) PT INR APTT PTT Ratio Heparin Anti-Xa, Unfract 0.73 H* Sodium 138 Potassium 4.2 Chloride 106 Carbon Dioxide 26 Anion Gap 6 BUN 17 Creatinine 0.95 Est Cr Clr Drug Dosing 69.4 eGFR 80.92 BUN/Creatinine Ratio 17.9 Glucose 116 H Calcium 8.7 Troponin I High Sens Diagnostic Findings Cardiac catheterization 2016. Patent CARR to LAD, patent saphenous vein graft to left circumflex, patent saphenous vein graft to RCA. 80% proximal LAD with 70% mid lesion and 70% ostial D1. 100% occlusion of the left circumflex. PDA disease noted in the RCA. Echocardiogram 12/06/2024: Normal LV systolic function with ejection fraction 55 to 60%. Mildly dilated left atrium. Aortic sclerosis without stenosis. Mild mitral annular calcification with mild mitral regurgitation. PG Care Time/CCT Total # of Minutes Spent Total Time Spent with Patient: Total time spent is greater than 50% in coordination of care (as documented) at patient's floor/unit and/or counseling patient: Coding Level of Care Code 09163 INT INP/OBS CARE 3/75MIN Diagnoses Unstable angina I20.0 CAD (coronary artery disease) of artery bypass graft I25.810 Mitral regurgitation I34.0
[2024-12-07] MEDS: CLOPIDOGREL BISULFATE 75 MG TAB PO SCH (12:08)
--- NOTE | 2024-12-07 12:56 | Pre Anesthesia Assessment ---
Date of Service December 07, 2024 Pre Sedation Assessment Vital Signs Temp Pulse Pulse Pulse Resp BP Pulse Ox 12/07/24 12:47 65 16 166/87 H 95 12/07/24 10:59 36.3 C L 69 18 159/53 H 93 12/07/24 07:06 36.5 C 78 18 167/84 H 95 12/07/24 07:05 61 12/07/24 03:28 36.7 C 66 18 175/89 H 96 12/07/24 02:15 68 14 96 12/06/24 23:05 73 12/06/24 22:58 36.6 C 69 20 158/88 H 97 12/06/24 22:50 67 22 97 12/06/24 19:16 36.5 C 63 18 151/80 H 94 12/06/24 16:18 36.7 C 63 18 156/81 H 94 12/06/24 13:35 59 L 12/06/24 13:15 12/06/24 13:15 36.6 C 88 16 161/81 H 96 O2 Del Method FiO2 12/07/24 12:47 Room Air 12/07/24 10:59 Room Air 12/07/24 07:06 CPAP 12/07/24 07:05 12/07/24 03:28 CPAP 12/07/24 02:15 21 12/06/24 23:05 12/06/24 22:58 CPAP 12/06/24 22:50 21 12/06/24 19:16 Room Air 12/06/24 16:18 Room Air 12/06/24 13:35 12/06/24 13:15 Room Air 12/06/24 13:15 Room Air Cardiovascular RRR, no murmur, no edema Respiratory normal respiratory effort, lungs clear to auscultation Pre-Sedation Airway Assessment Smoking Status: Never smoker Mallampati 3 ASA 3 Notes The planned sedation has been discussed with the patient. Informed Consent was obtained. I have identified the patient, determined the appropriateness of sedation and have assessed the patient immediately prior to the procedure. All medicine(s) and interventions are by my order.
--- NOTE | 2024-12-07 13:15 | Hospitalist Progress Note ---
Date of Service December 07, 2024 Assessment & Plan (1) Unstable angina: Plan: (2) CAD (coronary artery disease): (3) Exertional dyspnea: (4) Mild reactive airways disease: Plan 79-year-old male with past medical history of CAD (severe three-vessel disease, multivessel CABG with CARR in 2010), previous small ischemic stroke on clopidogrel and aspirin, prediabetes, hypertension, ACOSTA on CPAP, hyperlipidemia, bladder cancer s/p resection, GERD, dysphagia s/p recent EGD, and history of SCC. He presented from [facility] with acute onset of chest pain radiating across his chest and to his jaw bilaterally with associated diaphoresis, nausea, and moderate chest tightness. He took nitro x 2 with relief. EMS was called and provided him with aspirin. His chest pain resolved with the EMS and he has not had any further chest pain or symptoms since being in the ED. Also with progressively worsening dyspnea on exertion x 6 months. Additionally he reports symptoms of orthostatic hypotension x 1 week. Likely can be discharged with close outpatient followup tomorrow 12/08/24 based on unremarkable cardiac cath findings, continue to observe overnight. #Unstable angina/CAD/Exertional Dyspnea- history of multivessel CABG with CARR in 2010. History of small ischemic stroke. - Prior history of stable angina with chest pain that would occur with high levels of exertion and resolved promptly with rest and/or single dose of nitro. This episode of chest pain occurred while at rest at [facility] and did not resolve after 1 dose of nitro. CP did resolve after 2 doses of nitro and 1 dose of aspirin - Lexiscan myocardial perfusion study in March 2024 showed no infarct or ischemia - Echocardiogram 12/06/2024 was unremarkable - Cardiology consulted - labor contractor results unremarkable, pending cardiology note post-cath for further recs - appreciated IV Heparin has been held based on non-concerning cath findings - Troponin Q6H x 3 unremarkable - Nitro paste PRN, morphine sulfate 2 mg IV PRN - Continue Plavix 75 mg QOD for prior CVA - Continue aspirin 81 mg daily for CAD/CABG - Consider switching Metoprolol succinate 25mg PO QD to Metoprolol tartrate 25mg PO BID, however defer to cardiology #Suspected orthostatic hypotension - with dizziness and visual changes upon standing - Has a history of orthostasis which improved after his amlodipine dose was reduced - Symptoms have been occurring for approximately 1 week - Will obtain orthostatic vital signs to evaluate #Hypertension/Hyperlipidemia - chronic, stable - Continue isosorbide mononitrate 60 mg daily, metoprolol 25 mg daily, atorvastatin 40 mg daily #Prediabetes - A1c 6.5% in August. Managed with diet. Repeat A1c this visit #Mild reactive airway disease - Continue Trelegy #Dysphagia/GERD - continue PPI #Bladder cancer s/p resection - continue tamsulosin. Bladder scan PRN #ACOSTA - CPAP HS CODE STATUS: Full code VTE PPx: SCDs, heparin gtt Dispo: Pending cardiology evaluation Reviewed outpatient records Updated family members at bedside Discussed case with cardiology Admission and Anticipated Discharge Date Admission Date: December 06, 2024 Supervising Physician Co-Signing Physician Notes ATTESTATION I also saw the patient and confirmed ortega portions of the history and exam. I agree with the impression and plan in the medical student and resident documentation, and as summarized below. Patient describes gradually increasing dyspnea with activity over the last couple of months, with yesterday chest pain at rest received with NTG x 2. No pain since admission. and other family members at bedside. EXAM VS reviewed Alert and oriented. CV regular. Lungs clear with non labored respirations. DATA Labs CBC and BMP reviewed Imaging CXR upon admission with NAD. IMPRESSION & PLAN CAD Unstable angina Remains on heparin GTT Cardiology consultation appreciated Cath planned for this afternoon Additional per resident documentation Subjective Pt is doing well today. He denies chest pain, palpitations, SOB, diaphoresis. He says that he feels completely fine. He has not had any episodes of chest pain since coming in yesterday. Review of Systems Review of Systems: All systems reviewed & are unremarkable except as noted in HPI & below Physical Exam Physical Exam: General: No acute distress, nondiaphoretic, well-developed, well-nourished. Cardiac: Regular rate and rhythm without murmurs gallops or rubs. No peripheral edema. Pulm: Clear to auscultation bilaterally without wheezes, rales or rhonchi. Normal respiratory effort. 95% on room air. Abdominal: Soft, nontender, distended secondary to body habitus. Bowel sounds present. Neuro: A&O x3. No focal neurological deficits. Results & Data Results & Data Vital Signs (Past 12 Hours) Vital Signs Temp Pulse Pulse Resp BP Pulse Ox O2 Del Method 12/07/24 07:06 36.5 C 78 18 167/84 H 95 CPAP 12/07/24 07:05 61 12/07/24 03:28 36.7 C 66 18 175/89 H 96 CPAP 12/07/24 02:15 68 14 96 12/06/24 23:05 73 12/06/24 22:58 36.6 C 69 20 158/88 H 97 CPAP 12/06/24 22:50 67 22 97 FiO2 12/07/24 07:06 12/07/24 07:05 12/07/24 03:28 12/07/24 02:15 21 12/06/24 23:05 12/06/24 22:58 12/06/24 22:50 21
--- NOTE | 2024-12-07 13:40 | Electrocardiogram Report ---
Test Reason : Blood Pressure : */* mmHG Vent. Rate : 63 BPM Atrial Rate : 63 BPM P-R Int : 182 ms QRS Dur : 68 ms QT Int : 420 ms P-R-T Axes : 40 78 101 degrees QTcB Int : 429 ms Normal sinus rhythm Nonspecific ST abnormality When compared with ECG of 15-Sep-2024 07:13, No significant change was found Confirmed by Thomas Castaneda ([id number]) on 12/07/2024 1:39:56 PM Referred By: REFERRED SELF Confirmed By: Thomas Castaneda
--- NOTE | 2024-12-07 14:06 | Post Anesthesia Assessment ---
Date of Service December 07, 2024 Post Sedation Assessment Vital Signs Temp Pulse Pulse Pulse Resp BP Pulse Ox 12/07/24 12:47 65 16 166/87 H 95 12/07/24 10:59 36.3 C L 69 18 159/53 H 93 12/07/24 07:06 36.5 C 78 18 167/84 H 95 12/07/24 07:05 61 12/07/24 03:28 36.7 C 66 18 175/89 H 96 12/07/24 02:15 68 14 96 12/06/24 23:05 73 12/06/24 22:58 36.6 C 69 20 158/88 H 97 12/06/24 22:50 67 22 97 12/06/24 19:16 36.5 C 63 18 151/80 H 94 12/06/24 16:18 36.7 C 63 18 156/81 H 94 O2 Del Method FiO2 12/07/24 12:47 Room Air 12/07/24 10:59 Room Air 12/07/24 07:06 CPAP 12/07/24 07:05 12/07/24 03:28 CPAP 12/07/24 02:15 21 12/06/24 23:05 12/06/24 22:58 CPAP 12/06/24 22:50 21 12/06/24 19:16 Room Air 12/06/24 16:18 Room Air Recovery Score Activity: Moves 4 extremities Respiration: Deep Breath/Cough Circulation: +/-20% PreAnes Value Consciousness: Fully Awake Oxygen Saturation: > 92% On Room Air Discharge Sedation Level of Care: Fast Track Phase II Post Sedation Plan On clinical assessment, the patient appears to have tolerated the sedation without complications. Patient is recovering as anticipated. Patient will continue to be monitored by nursing and may be discharged when sedation discharge criteria are met per below protocol. Upon Completions of procedure up to 15 minutes continue every 5 minute vital signs and the P.A.R. score; then discharge to a Phase I or Fast Track to Phase II per the following guidelines: * Discharge Patient to appropriate Phase II area if PAR is 8 or greater or return to pre- procedure baseline. The post - procedure orders will be as directed. * If PAR score is less than 8 or not return to pre-procedure baseline then patient will follow Phase I monitoring till PAR is reached for Phase II. The Phase I may be done in procedure room or may call to secure a Phase I area. * If naloxone or flumazenil are used for reversal, hold in Phase I for continued monitoring from when last reversal dose was given for a minimum of 60 minutes or longer pending the nurse and/or physician discretion of patient condition before discharge to Phase II. Please call the Sedation Physician to re-evaluate and complete post-note for discharge to Phase II area. Do NOT discharge from procedure sedation or Phase 1 until post- sedation evaluation note is complete by procedure /sedation MD Sedation Discharge Instructions to be given to the patient at discharge to home. [facility] [place] Procedure Codes (Charges) Indication for Procedure Indication for procedure: unstable angina CAD Sedation/Anesthesia Procedure 1: Sedation/Anesthesia: 84736 Mod Sedation by the same physician;Init15 Min Child Age 5 & Up (initial 15 min, start 1324) Total Sedation Time (minutes): 34 Procedure 2: Sedation/Anesthesia: 70186 Mod Sedation by the same physician; Ea [id number] Minutes (additional 19 min, end 1358) Total Sedation Time (minutes): 34
[2024-12-07] MEDS: HEPARIN (PORCINE) 1000 UNIT/ML 10 ML (CATH LAB USE ONLY) ONE (14:15)
[2024-12-07] MEDS: fentaNYL citrate PF 100 MCG/2 ML VIAL ONE (14:15)
[2024-12-07] MEDS: MIDAZOLAM HCL 1 MG/ML 2ML VIAL ONE (14:15)
[2024-12-07] MEDS: niCARdipine 2,000 MCG/20 ML SYR ONE (14:16)
[2024-12-07] MEDS: NITROGLYCERIN/D5W 100MCG/ML 20ML SYR ONE (14:16)
[2024-12-07] MEDS: diphenhydrAMINE 50 MG/ML VIAL ONE (14:16)
[2024-12-07] MEDS: OPTIRAY 350 ONE (14:17)
[2024-12-07] MEDS: FAMOTIDINE 20MG/5ML IV PUSH IV ONE (14:17)
[2024-12-07] MEDS: hydrALAZINE HCL 20 MG/ML VIAL ONE (14:17)
[2024-12-07] MEDS: methylPREDNISolone 125 MG/2 ML VIAL ONE (14:17)
[2024-12-07 19:01] LABS: ANTI-Xa, UFH(UnfractionatedHep < 0.10 IU/ml (0.3-0.7)
[2024-12-08 07:03] LABS: Hematocrit (blood only) 45.5 % (42.0-52.0); Hemoglobin 15.1 g/dl (14.0-18.0); Mean Corpuscular Hemoglobin 28.7 pg (25.0-34.0); Mean Corpuscular Hgb Conc 33.2 g/dL (32.0-36.0); Mean Corpuscular Volume 86.5 fL (80.0-100.0); Mean Platelet Volume 8.4 fL (9.4-12.4); Platelet Count 229 K/uL (130-400); RDW Coefficient of Variation 13.2 % (11.5-14.5); RDW Standard Deviation 41.1 fL (36.4-46.3); Red Blood Count 5.26 M/uL (4.70-6.10); White Blood Count 15.36 K/ul (4.8-10.8)
[2024-12-08 07:29] VITALS: RESP 18
[2024-12-08 09:15] LABS: BUN Creatinine Ratio 20.3 (10-20); Calcium 9.7 mg/dl (8.6-10.3); Creatinine Clr Calc Pharmacy 55.7 ml/min; Potassium 4.5 mmol/L (3.5-5.1)
[2024-12-08 10:46] VITALS: O2SAT 92
--- NOTE | 2024-12-08 13:27 | Discharge Summary ---
Date of Service December 08, 2024 Admission HPI Per Admitting Provider Fabricio is a pleasant 79-year-old male with past medical history of CAD (severe three-vessel disease, multivessel CABG with CARR in 2010), previous small ischemic stroke on clopidogrel and aspirin, prediabetes, hypertension, ACOSTA on CPAP, hyperlipidemia, bladder cancer s/p resection, GERD, dysphagia s/p recent EGD, and history of SCC. He presented from [facility] with acute onset of chest pain. At the time my exam, the patient was lying in bed in no acute distress. He states he woke up in his usual state of health and went to [facility]. While at [facility], he developed acute onset of chest pain radiating across his chest and to his jaw bilaterally with associated diaphoresis, nausea, and moderate chest tightness. He took nitro x 2 with relief. EMS was called and provided him with aspirin. His chest pain resolved with the EMS and he has not had any further chest pain or symptoms since being in the ED. He denies orthopnea, peripheral edema, heart palpitations, presyncope, syncope. He denies alcohol or tobacco us e. He denies recent illness aside from some sinus congestion 2 days ago for which he took Tylenol. He also reports progressively worsening dyspnea on exertion x ~6 months. He notes if he continues his activity despite his dyspnea, he will develop chest pain. He also reports symptoms of orthostatic hypotension x 1 week with dizziness and "black spots" visual changes with standing. Patient reports that he took all of his regular morning medications today; no recent change in medications. He does does not use supplemental oxygen during the day at baseline, but does wear CPAP at night and is compliant with this. Vitals on admission are stable. Labs on admission are significant for mildly elevated serum glucose at 131; otherwise unremarkable. EKG on admission with NSR. Per my interpretation with my attending physician, subtle EKG changes are noted with T wave inversions in leads I, aVL, V4, V5, V6. Reached out to cardiology to review. CXR on admission unremarkable. We discussed code status, patient wishes to be a full code. His and daughter are present at bedside. Admission Exam Per Admitting Provider General: No acute distress, nondiaphoretic, well-developed, well-nourished. Cardiac: Regular rate and rhythm without murmurs gallops or rubs. No peripheral edema. Pulm: Clear to auscultation bilaterally without wheezes, rales or rhonchi. Normal respiratory effort. 95% on room air. Abdominal: Soft, nontender, distended secondary to body habitus. Bowel sounds present. Neuro: A&O x3. No focal neurological deficits. Principal Diagnosis Esophageal Spasm Discharge Exam Constitutional well developed and well groomed; no acute distress Neck normal visual inspection No JVD Respiratory normal respiratory effort, lungs clear to auscultation Cardiovascular RRR, no murmur, no edema Gastrointestinal (Abdomen) normal bowel sounds, soft, nontender, no hepatosplenomegaly Neurologic Speech / Cognition: normal speech and normal cognition Psychiatric A+Ox3, euthymic affect Discharge Data Allergies Allergy/AdvReac Type Severity Reaction Status Date / Time Iodinated Contrast Media AdvReac Intermediate "FEELING Verified 10/27/24 06:33 FUNNY" Consultations 12/06/24 10:30 ED Decision to Admit Stat 12/06/24 14:18 Consult Cardiology Routine Procedures Performed Operation Date: 12/07/24 13:00 Actual Procedures p Cineradiography w/Routine Exam - Bret Graham MD, PhD p Cath, Cors with Grafts (no LV) - Bret Graham MD, PhD Ordered Studies 12/07/24 13:06 CL Cath Imgs for PACS use only Stat Hospital Course (1) Esophageal dyskinesia: - EGD on 07/2024 demonstrated tortuous esophageus - HREM in 2014 demonstrated hypercontractility with normal distal latency and mildly elevated IRP - Barium swallow on10/21/2024 demonstrated upstream corkscrew type dialation with dysmotility - Current presentation couldbe explained by esophageal spasm, causing chest pain. The vagus nerve could have also been irritated by this spasm, causing the radiating pain and autonomic symtoms - Given negative cardiac workup, an esophageal cause is more likely (2) Unstable angina: - history of multivessel CABG with CARR in 2010. History of small ischemic stroke. - Prior history of stable angina with chest pain that would occur with high levels of exertion and resolved promptly with rest and/or single dose of nitro. This episode of chest pain occurred while at rest at [facility] and did not resolve after 1 dose of nitro. CP did resolve after 2 doses of nitro and 1 dose of aspirin - Lexiscan myocardial perfusion study in March 2024 showed no infarct or ischemia - Echocardiogram 12/06/2024 was unremarkable - Cardiology consulted - laborer pipeline results unremarkable - Troponin Q6H x 3 unremarkable - Nitro paste PRN - Continue Plavix 75 mg QOD for prior CVA - Continue aspirin 81 mg daily for CAD/CABG (3) CAD (coronary artery disease): (4) Exertional dyspnea: (5) Mild reactive airways disease: - Continue Trelegy Plan 79-year-old male with past medical history of CAD (severe three-vessel disease, multivessel CABG with CARR in 2010), previous small ischemic stroke on clopidogrel and aspirin, prediabetes, hypertension, ACOSTA on CPAP, hyperlipidemia, bladder cancer s/p resection, GERD, dysphagia s/p recent EGD, and history of SCC. He presented from [facility] with acute onset of chest pain radiating across his chest and to his jaw bilaterally with associated diaphoresis, nausea, and moderate chest tightness. He took nitro x 2 with relief. EMS was called and provided him with aspirin. His chest pain resolved with the EMS and he has not had any further chest pain or symptoms since being in the ED. Also with progressively worsening dyspnea on exertion x 6 months. Additionally he reports symptoms of orthostatic hypotension x 1 week. Based on no concerning cardiac findings on workup and documented history of achalasia / esophageal dysmotility, esophageal spasm is the most likely cause of pt's transient chest pain. Please continue your current cardiac regimen, and in addition we will be increasing your isosorbide mononitrate to 90mg (1.5 tablets of 60mg each) in the morning. #Achalasia / esophageal dysmotility - continue PPI for dysphagia - increasing isosorbide mononitrate from 60mg to 90mg daily (1.5 tablets of 60mg each) - followup with GI as scheduled; PCP followup in 1-2 weeks #CAD history with CABG in 2010 - continue home cardiac / cholesterol regimen with the addition increased isosorbide mononitrate to 90mg daily - continue with healthy diet and exercise recommendations: strive for 150min of activity per week, avoid foods high in saturated fat as well as any processed/frozen/fast foods #Suspected orthostatic hypotension - with dizziness and visual changes upon standing - Has a history of orthostasis which improved after his amlodipine dose was reduced - Symptoms have been occurring for approximately 1 week prior to instance of chest pain - have orthostatic vital signs tested in outpatient office #Hypertension/Hyperlipidemia - chronic, stable - increasing isosorbide mononitrate from 60mg to 90mg daily; metoprolol 25 mg daily, atorvastatin 40 mg daily #Prediabetes - A1c 6.5% in August. Managed with diet. #GERD - continue PPI #Bladder cancer s/p resection - continue tamsulosin. Bladder scan PRN #ACOSTA - CPAP HS Reviewed outpatient records Updated family members at bedside Discussed case with cardiology Total Time Total Time Spent Total Time Spent (In Minutes): Oliverio Basilio DO, attending physician, spent 30 minutes myself seeing the patient, reviewing the chart, and documenting today. Discharge Plan Discharge Items Patient Disposition: Home - Self-Care Reason For Visit: Chest Pain Discharge Diagnosis: Esophageal spasm Condition on Discharge: Fair Activity: Per Instructions section Non-emergency contact: Primary Care Provider and Loan Broker Call non-emergency contact if: your symptoms worsen and your pain is not controlled Follow-up/Referrals: Inder Maguire MD [Primary Care Provider] - 12/17/24 (PCP appt: 12/17/2024 already scheduled by patient) Diet: Low Sodium (2gm) Addtl Attending Provider Instructions: You were evaluated and treated at [facility] for chest pain at rest while at [facility] on Saturday12/06/24. Workup proved negative for acute cardiac pathology as your troponin, EKG, and cardiac catheterization were all unremarkable for concerning findings. You do, however, have past documentation and workup of dysphagia and odynophagia, and documented history of achalasia / esophageal spasm, which is the most likely cause of the chest pain you were experiencing based on negative cardiac workup. Please continue your current cardiac regimen, and in addition we will be increasing your isosorbide mononitrate to 90mg (1.5 tablets of 60mg each) in the morning. #Achalasia / esophageal dysmotility - continue PPI for dysphagia - increasing isosorbide mononitrate from 60mg to 90mg daily (1.5 tablets of 60mg each) - followup with GI as scheduled; PCP followup in 1-2 weeks #CAD history with CABG in 2010 - continue home cardiac / cholesterol regimen with the addition increased isosorbide mononitrate to 90mg daily - continue with healthy diet and exercise recommendations: strive for 150min of activity per week, avoid foods high in saturated fat as well as any processed/frozen/fast foods #Suspected orthostatic hypotension - with dizziness and visual changes upon standing - Has a history of orthostasis which improved after his amlodipine dose was reduced - Symptoms have been occurring for approximately 1 week prior to instance of chest pain - have orthostatic vital signs tested in outpatient office #Hypertension/Hyperlipidemia - chronic, stable - increasing isosorbide mononitrate from 60mg to 90mg daily; metoprolol 25 mg da alfie, atorvastatin 40 mg daily #Prediabetes - A1c 6.5% in August. Managed with diet. #GERD - continue PPI #Bladder cancer s/p resection - continue tamsulosin. Bladder scan PRN #ACOSTA - CPAP HS Pending Studies at Discharge: No Stand-Alone Forms: My [facility] [employer], Smoking Cessation Medications and DC Order Prescriptions: Continued tamsulosin [Flomax] 0.4 mg capsule 0.4 mg PO QAM Qty: 90 3RF Trelegy Ellipta 100-62.5-25 mcg blister with device 1 inh inhalation QAM Qty: 90 3RF clopidogrel [Plavix] 75 mg tablet 75 mg PO Q2D Qty: 45 3RF Hold Instructions: Resume on 09/25/24. escitalopram oxalate [Lexapro] 10 mg tablet 10 mg PO QAM Qty: 90 3RF nitroglycerin 0.4 mg tablet, sublingual 0.4 mg Sublingual UD PRN (Reason: Chest Pain) Qty: 25 3RF Patient Comments: pt has not needed atorvastatin 40 mg tablet 40 mg PO HS Qty: 90 3RF esomeprazole magnesium [Nexium] 40 mg capsule,delayed release(DR/EC) 40 mg PO QAM Qty: 90 3RF metoprolol succinate 25 mg tablet extended release 24 hr 25 mg PO QAM Qty: 90 3RF olopatadine [Pataday Once Daily Relief] 0.2 % drops 1 drp ophthalmic (eye) BID azelastine 137 mcg (0.1 %) spray,non-aerosol 1 spray intranasal BID Rx Instructions: administer into each nostril multivitamin Tablet 1 tab PO QAM aspirin 81 mg Tablet,Delayed Release (Dr/Ec) 81 mg PO HS loratadine [Claritin] 10 mg Tablet 10 mg PO QAM acetaminophen [Tylenol Extra Strength] 500 mg Tablet 1,000 mg PO Q6H PRN (Reason: Fever Or Pain) budesonide 0.5 mg/2 mL suspension for nebulization 0.5 mg irrigation BID Changed isosorbide mononitrate 60 mg tablet extended release 24 hr 90 mg PO QAM Qty: 90 3RF Discharge Orders: Discharge Order (Routine); Ordered 12/08/24 Ordered By: Edwardo Silver/Other Patient Handouts: Dysphagia: Exercises, Discharge Instructions for Angina, ED Chest Pain, Noncardiac, ED GERD (Adult), ED Esophageal Spasm Admission Data Admit Date/Time: 12/06/24 11:54 Attending Provider: Oliverio Delcid Admit Provider: Anali Wetzel Primary Care Provider: Inder Maguire Other Providers: Anali Wetzel; Thomas Castaneda Other Interventions: Discharge Summary Assessment (RN) Last Done: 12/08/24 11:45 Supervising Physician Co-Signing Physician Notes ATTESTATION I also saw the patient and confirmed ortega portions of the history and exam. I discussed the case with cardiology. I agree with the impression and plan in the medical student and resident documentation, and as summarized below. No pain since admission. Ambulating in hallway without symptoms. EXAM VS reviewed Alert and oriented. CV regular. Lungs clear with non labored respirations. IMPRESSION & PLAN CAD Esophageal dysmotility Cath looks relatively good; this, combined with normal EKG and negative troponin suggest alternative etiology He is currently undergoing GI workup, and recent study demonstrated esophageal spasm, which would also fit his symptoms He is scheduled for gastric emptying as well Increase Imdur to 90 mg to see if this helps his exertional capacity at all GI appointment and studies as previously planned Continue other home medications Additional per resident documentation
[2024-12-08 15:18] VITALS: BP 127/55; TEMP 97.7
[2024-12-08 16:18] VITALS: PULSE 67
== END 2024-12-08 17:18 | disposition home or self-care (01) ==
LOC: ED 09:12 → 2S 09:12 → SUATTDRO 11:54 → 2S 12:54
PROC: CLB.CCG (2024-12-07 13:00)